=== PATIENT | female | born 1945 | race Caucasian/White ===

== ENCOUNTER → 2017-12-07 09:41 | Outpatient (CLI) | payer MEDICARE, SELFPAY ==
[2017-12-07 10:47] LABS: Cholesterol 199 mg/dL (200); High Density Lipoprotein 50 mg/dL; Triglycerides 136 mg/dL; Very Low Density Lipoprotein 27 mg/dL (5-40)
[2017-12-07 10:53] LABS: Hemoglobin A1c 6.6 % (4.2-6.3)
== END ==
PROVIDERS: Family Provider Internal Medicine; PCP Internal Medicine; Visit Provider Nurse Practitioner Family
DX: E11.9 Type 2 diabetes mellitus without complications (principal); E78.00 Pure hypercholesterolemia, unspecified
CPT/HCPCS: 36415; 80061; 83036

== ENCOUNTER → 2018-06-04 07:35 | Outpatient (CLI) | payer MEDICARE, SELFPAY ==
[2018-06-04 08:59] LABS: Absolute Lymphocyte Count 2.07 X10^3/ul (0.83-4.51); Absolute Neutrophil Count 4.6 X10^3/uL (2.0-7.7); Basophil# 0.02 X10^3/uL; Basophil% 0.3 % (0-1); Eosinophil# 0.26 X10^3/uL; Eosinophils% 3.3 % (0-5); Hematocrit 45.4 % (37-47); Hemoglobin 14.8 g/dl (12.0-15.0); Lymphocyte # 2.07 X10^3/ul (4.0); Lymphocyte % 26.2 % (19-41); Mean Corp Hgb Conc 32.6 g/gl (32-36); Mean Corpuscular Volume 92.1 fL (81-99); Mean Platelet Vol. 10.6 fl (6.2-12.0); Monocyte# 0.96 X10^3/uL; Monocyte% 12.2 % (0-10); Neutrophil # 4.58 X10^3/uL (2.7-7.7); Neutrophil % 57.9 % (47-70); Platelet Count 272 K/mm3 (150-450); RBC Distribution Width SD 43.2 fl (35.1-43.9); Red Blood Count 4.93 M/mm3 (4.2-5.4); White Blood Count 7.9 K/mm3 (4.4-11.0)
[2018-06-04 09:01] LABS: POSITIVE COUNT NO; POSITIVE DIFFERENTIAL NO; POSITIVE MORPHOLOGY NO
[2018-06-04 09:24] LABS: Hemoglobin A1c 6.1 % (4.2-6.3)
[2018-06-04 09:27] LABS: AST(SGOT) 21 U/L (15-37); Alanine Aminotransfer ALT/SGPT 28 U/L (13-56); Albumin, Serum 3.4 g/dL (3.2-5.0); Alkaline Phosphatase 72 U/L (45-117); Anion Gap 8 (5-15); BUN 22 mg/dL (7-18); BUN/Creat Ratio 32.1 RATIO (10-20); Calcium,Total 8.6 mg/dL (8.5-10.1); Chloride 105 mmol/L (98-107); Creatinine, Serum 0.68 mg/dL (0.55-1.02); EST Glomerular Filtration Rate 89 mL/min (>60); Est Glom Filt Rate - Afr Amer 108 mL/min (>60); Globulin 3.4 g/dL (2.2-4.2); Glucose 122 mg/dL (74-106); Potassium 4.1 mmol/L (3.5-5.1); Protein, Total 6.8 g/dL (6.4-8.2); Sodium Level 141 mmol/L (136-145)
== END ==
PROVIDERS: Family Provider Internal Medicine; PCP Internal Medicine; Referring Provider Internal Medicine; Visit Provider Internal Medicine
DX: E11.9 Type 2 diabetes mellitus without complications (principal); I10 Essential (primary) hypertension
CPT/HCPCS: 36415; 80053; 83036; 85025

== ENCOUNTER → 2018-06-20 12:40 | Outpatient (CLI) | payer MEDICARE, SELFPAY ==
--- NOTE | 2018-06-20 12:43 | BI_ITS ---
MAMMOGRAPHY - BILATERAL SCREENING REASON FOR EXAM: Female, 73 years old. Routine annual screening examination. PERTINENT HISTORY: Non-contributory. TECHNIQUE: Digital bilateral breast altagracia (3D mammographic acquisition) in the CC and MLO projections. 2-D mediolateral oblique (MLO) and craniocaudad (CC) views of both breasts were obtained. CAD: Full Field Digital Mammography with Computer Added Detection was performed. COMPARISON: Comparison is made with prior examination dated November 28, 2015. FINDINGS: Breast Composition: There are scattered areas of fibroglandular density. There are no dominant masses or suspicious calcifications. Stable small bilateral axillary lymph nodes. No other significant abnormalities are identified. There has been no significant change since the prior study. BI/SCREENING MAMM (CAD), BILAT IMPRESSION: Stable bilateral screening mammogram. Yearly follow-up mammogram recommended. (A) ASSESSMENT CATEGORY: BIRADS Category 2: Benign. A letter regarding these results will be sent to the patient by the facility within 30 days. Approximately 10% of breast cancers are not detected by mammography. A normal mammogram should not delay biopsy of a clinically suspicious abnormality. [id number] Electronically Signed: Ernesto Segal MD at 14:55 EDT Tel [phone], Service support ,
== END ==
PROVIDERS: Family Provider Internal Medicine; PCP Internal Medicine; Referring Provider Internal Medicine; Visit Provider Internal Medicine
DX: Z12.31 Encounter for screening mammogram for malignant neoplasm of breast (principal)
CPT/HCPCS: 77063; 77067

== ENCOUNTER → 2018-10-29 11:50 | Outpatient (CLI) | payer MEDICARE, SELFPAY ==
[2018-08-05 15:14] VITALS: BMI 31.2
[2018-10-29 12:30] LABS: Hemoglobin A1c 6.3 % (4.2-6.3)
[2018-10-29 12:48] LABS: Cholesterol 213 mg/dL (200); High Density Lipoprotein 53 mg/dL; Triglycerides 163 mg/dL; Very Low Density Lipoprotein 33 mg/dL (5-40)
== END ==
PROVIDERS: Family Provider Internal Medicine; PCP Internal Medicine; Referring Provider Internal Medicine; Visit Provider Internal Medicine
DX: E78.00 Pure hypercholesterolemia, unspecified (principal); E11.9 Type 2 diabetes mellitus without complications
CPT/HCPCS: 36415; 80061; 83036

== ENCOUNTER → 2018-11-28 11:12 | Outpatient (CLI) | payer MEDICARE, SELFPAY ==
[2018-11-03 10:29] VITALS: BMI 31.2
[2018-11-28 12:13] LABS: Anion Gap 5 (5-15); BUN 16 mg/dL (7-18); Calcium,Total 8.8 mg/dL (8.5-10.1); Chloride 107 mmol/L (98-107); EST Glomerular Filtration Rate 87 mL/min (>60); Est Glom Filt Rate - Afr Amer 106 mL/min (>60); Glucose 109 mg/dL (74-106); Sodium Level 141 mmol/L (136-145)
== END ==
PROVIDERS: Family Provider Internal Medicine; PCP Internal Medicine; Referring Provider Internal Medicine; Visit Provider Internal Medicine
DX: I10 Essential (primary) hypertension (principal)
CPT/HCPCS: 36415; 80048

== ENCOUNTER → 2019-03-02 11:07 | Outpatient (CLI) | payer MEDICARE, SELFPAY ==
[2019-03-02 10:34] VITALS: BMI 31.2
[2019-03-02 12:40] LABS: Anion Gap 7 (5-15); BUN 16 mg/dL (7-18); BUN/Creat Ratio 23.9 RATIO (10-20); Calcium,Total 8.4 mg/dL (8.5-10.1); Chloride 108 mmol/L (98-107); Creatinine, Serum 0.67 mg/dL (0.55-1.02); EST Glomerular Filtration Rate 91 mL/min (>60); Est Glom Filt Rate - Afr Amer 111 mL/min (>60); Glucose 112 mg/dL (74-106); Potassium 4.4 mmol/L (3.5-5.1); Sodium Level 142 mmol/L (136-145)
== END ==
PROVIDERS: Family Provider Internal Medicine; PCP Internal Medicine; Visit Provider Internal Medicine
DX: I10 Essential (primary) hypertension (principal)
CPT/HCPCS: 36415; 80048

== ENCOUNTER → 2019-08-28 13:29 | Outpatient (CLI) | payer MEDICARE, OTHER, SELFPAY ==
[2019-06-08 10:57] VITALS: BMI 31.2
--- NOTE | 2019-08-28 13:35 | EKG12_ITS ---
Test Reason : HTN Blood Pressure : / mmHG Vent. Rate : 072 BPM Atrial Rate : 072 BPM P-R Int : 206 ms QRS Dur : 090 ms QT Int : 394 ms P-R-T Axes : 057 044 060 degrees QTc Int : 431 ms Normal sinus rhythm Low voltage QRS Confirmed by RICK LANCE, DAWSON ([id number]), metropolitan editor AMANDA NARVAEZ ([id number]) on 08/31/2019 10:31:04 AM Referred By: Juan F Ann Confirmed By:DAWSON CABRERA MD
== END ==
PROVIDERS: Family Provider Internal Medicine; PCP Internal Medicine; Referring Provider Internal Medicine; Visit Provider Internal Medicine
DX: I10 Essential (primary) hypertension (principal)
CPT/HCPCS: 93005

== ENCOUNTER → 2019-09-07 11:09 | Outpatient (CLI) | payer MEDICARE, OTHER, SELFPAY ==
[2019-09-07 10:40] VITALS: BMI 31.8
[2019-09-07 12:51] LABS: AST(SGOT) 22 U/L (15-37); Alanine Aminotransfer ALT/SGPT 39 U/L (13-56); Albumin, Serum 3.6 g/dL (3.2-5.0); Alkaline Phosphatase 70 U/L (45-117); Anion Gap 3 (5-15); BUN 18 mg/dL (7-18); BUN/Creat Ratio 23.5 RATIO (10-20); Calcium,Total 9.3 mg/dL (8.5-10.1); Chloride 103 mmol/L (98-107); Cholesterol 220 mg/dL (200); Creatinine, Serum 0.77 mg/dL (0.55-1.02); EST Glomerular Filtration Rate 78 mL/min (>60); Est Glom Filt Rate - Afr Amer 94 mL/min (>60); Globulin 3.6 g/dL (2.2-4.2); Glucose 102 mg/dL (74-106); High Density Lipoprotein 51 mg/dL; Potassium 4.5 mmol/L (3.5-5.1); Protein, Total 7.2 g/dL (6.4-8.2); Sodium Level 137 mmol/L (136-145); Triglycerides 217 mg/dL; Very Low Density Lipoprotein 43 mg/dL (5-40)
== END ==
PROVIDERS: PCP Internal Medicine; Visit Provider Internal Medicine
DX: E78.00 Pure hypercholesterolemia, unspecified (principal); I10 Essential (primary) hypertension
CPT/HCPCS: 36415; 80053; 80061

== ENCOUNTER → 2020-02-02 13:51 | Outpatient (CLI) | payer MEDICARE, SELFPAY ==
[2020-02-02 13:30] VITALS: BMI 31.2
[2020-02-02 15:13] LABS: Anion Gap 4 (5-15); BUN 18 mg/dL (7-18); BUN/Creat Ratio 26.6 RATIO (10-20); Calcium,Total 9.2 mg/dL (8.5-10.1); Chloride 106 mmol/L (98-107); Creatinine, Serum 0.68 mg/dL (0.55-1.02); EST Glomerular Filtration Rate 90 mL/min (>60); Est Glom Filt Rate - Afr Amer 109 mL/min (>60); Glucose 119 mg/dL (74-106); Potassium 4.1 mmol/L (3.5-5.1); Sodium Level 140 mmol/L (136-145)
[2020-02-02 15:17] LABS: Hemoglobin A1c 6.5 % (3.8-5.6)
== END ==
PROVIDERS: PCP Internal Medicine; Referring Provider Internal Medicine; Visit Provider Internal Medicine
DX: E11.9 Type 2 diabetes mellitus without complications (principal); I10 Essential (primary) hypertension
CPT/HCPCS: 36415; 80048; 83036

== ENCOUNTER → 2020-09-14 14:08 | Outpatient (CLI) | payer MEDICARE, SELFPAY ==
[2020-09-14 13:37] VITALS: BMI 32.3
[2020-09-14 15:05] LABS: Absolute Lymphocyte Count 2.45 X10^3/uL (0.83-4.51); Absolute Neutrophil Count 4.9 X10^3/uL (2.0-7.7); Basophil# 0.04 X10^3/uL; Basophil% 0.5 % (0-1); Eosinophil# 0.26 X10^3/uL; Hematocrit 45.2 % (37-47); Hemoglobin 15.1 g/dL (12.0-15.0); Lymphocyte # 2.45 X10^3/ul (4.0); Lymphocyte % 27.9 % (19-41); Mean Corp Hgb Conc 33.4 g/dL (32-36); Mean Corpuscular Hgb 30.6 pg (27.0-32.0); Mean Corpuscular Volume 91.5 fL (81-99); Mean Platelet Vol. 10.7 fl (6.2-12.0); Monocyte% 12.5 % (0-10); NRBC Flagged by Analyzer 0 % (0-5); Neutrophil % 55.8 % (47-70); Platelet Count 276 K/mm3 (150-450); RBC Distribution Width CV 12.2 % (11.6-14.6); RBC Distribution Width SD 40.8 fl (35.1-43.9); Red Blood Count 4.94 M/mm3 (4.2-5.4); White Blood Count 8.8 K/mm3 (4.4-11.0)
[2020-09-14 15:20] LABS: AST(SGOT) 21 U/L (15-37); Alanine Aminotransfer ALT/SGPT 37 U/L (13-56); Albumin, Serum 3.6 g/dL (3.2-5.0); Alkaline Phosphatase 74 U/L (45-117); Anion Gap 4 (5-15); BUN 23 mg/dL (7-18); BUN/Creat Ratio 29.2 RATIO (10-20); Calcium,Total 9.3 mg/dL (8.5-10.1); Chloride 105 mmol/L (98-107); Cholesterol 214 mg/dL (200); Creatinine, Serum 0.79 mg/dL (0.55-1.02); EST Glomerular Filtration Rate 75 mL/min (>60); Est Glom Filt Rate - Afr Amer 91 mL/min (>60); Globulin 3.6 g/dL (2.2-4.2); Glucose 128 mg/dL (74-106); High Density Lipoprotein 48 mg/dL; Potassium 3.9 mmol/L (3.5-5.1); Protein, Total 7.2 g/dL (6.4-8.2); Sodium Level 138 mmol/L (136-145); Triglycerides 209 mg/dL; Very Low Density Lipoprotein 42 mg/dL (5-40)
[2020-09-15 14:40] LABS: Hemoglobin A1c 7.4 % (3.8-5.6)
== END ==
PROVIDERS: PCP Internal Medicine; Referring Provider Internal Medicine; Visit Provider Internal Medicine
DX: I10 Essential (primary) hypertension (principal); E11.9 Type 2 diabetes mellitus without complications
CPT/HCPCS: 36415; 80053; 80061; 83036; 85025

== ENCOUNTER → 2020-09-15 10:54 | Outpatient (CLI) | payer MEDICARE, SELFPAY ==
[2020-09-14 13:37] VITALS: BMI 32.3
[2020-09-15 12:57] LABS: Microalbumin,Random Urine 17.5 mg/L (NO RANGE EST.); Microalbumin:Creatinine Ratio 7.3 mg/g CRE (<30 mg/g CRE)
== END ==
PROVIDERS: PCP Internal Medicine; Referring Provider Internal Medicine; Visit Provider Internal Medicine
DX: E11.9 Type 2 diabetes mellitus without complications (principal); I10 Essential (primary) hypertension
CPT/HCPCS: 82043; 82570

== ENCOUNTER → 2020-12-14 14:10 | Outpatient (CLI) | payer MEDICARE, SELFPAY ==
[2020-12-14 13:48] VITALS: BMI 32.3
[2020-12-14 15:17] LABS: Absolute Lymphocyte Count 2.56 X10^3/uL (0.83-4.51); Absolute Neutrophil Count 5.1 X10^3/uL (2.0-7.7); Basophil# 0.03 X10^3/uL; Basophil% 0.3 % (0-1); Eosinophil# 0.31 X10^3/uL; Eosinophils% 3.4 % (0-5); Hematocrit 43.3 % (37-47); Hemoglobin 13.7 g/dL (12.0-15.0); Lymphocyte # 2.56 X10^3/ul (0.83-4.51); Lymphocyte % 28.2 % (19-41); Mean Corp Hgb Conc 31.6 g/dL (32-36); Mean Corpuscular Hgb 29.5 pg (27.0-32.0); Mean Corpuscular Volume 93.1 fL (81-99); Monocyte# 1.05 X10^3/uL; Monocyte% 11.6 % (0-10); NRBC Flagged by Analyzer 0 % (0-5); Neutrophil % 56.2 % (47-70); Platelet Count 295 K/mm3 (150-450); RBC Distribution Width CV 12.4 % (11.6-14.6); RBC Distribution Width SD 42.6 fl (35.1-43.9); Red Blood Count 4.65 M/mm3 (4.2-5.4); White Blood Count 9.1 K/mm3 (4.4-11.0)
[2020-12-14 15:34] LABS: BUN 24 mg/dL (7-18); Creatinine, Serum 0.67 mg/dL (0.55-1.02); Glucose 128 mg/dL (74-106)
[2020-12-14 15:35] LABS: Anion Gap 4 (5-15); BUN/Creat Ratio 35.8 RATIO (10-20); Calcium,Total 9.1 mg/dL (8.5-10.1); Chloride 107 mmol/L (98-107); EST Glomerular Filtration Rate 91 mL/min (>60); Est Glom Filt Rate - Afr Amer 110 mL/min (>60); Potassium 3.9 mmol/L (3.5-5.1); Sodium Level 140 mmol/L (136-145)
== END ==
PROVIDERS: PCP Internal Medicine; Referring Provider Internal Medicine; Visit Provider Internal Medicine
DX: I10 Essential (primary) hypertension (principal); E11.9 Type 2 diabetes mellitus without complications
CPT/HCPCS: 36415; 80048; 85025

== ENCOUNTER 2021-09-20 13:27 | Outpatient (CLI) | payer MEDICARE, SELFPAY ==
[2021-09-20 15:28] LABS: Absolute Lymphocyte Count 2.94 X10^3/uL (0.83-4.51); Absolute Neutrophil Count 4.6 X10^3/uL (2.0-7.7); Basophil# 0.03 X10^3/uL; Basophil% 0.3 % (0-1); Eosinophil# 0.29 X10^3/uL; Eosinophils% 3.2 % (0-5); Hematocrit 43.6 % (37-47); Hemoglobin 14.3 g/dL (12.0-15.0); Lymphocyte # 2.94 X10^3/ul (0.83-4.51); Lymphocyte % 32.5 % (19-41); Mean Corp Hgb Conc 32.8 g/dL (32-36); Mean Corpuscular Volume 91.4 fL (81-99); Mean Platelet Vol. 10.7 fl (6.2-12.0); Monocyte# 1.18 X10^3/uL; NRBC Flagged by Analyzer 0 % (0-5); Neutrophil # 4.57 X10^3/uL (2.7-7.7); Neutrophil % 50.6 % (47-70); Platelet Count 304 K/mm3 (150-450); RBC Distribution Width CV 12.4 % (11.6-14.6); RBC Distribution Width SD 40.8 fl (35.1-43.9); Red Blood Count 4.77 M/mm3 (4.2-5.4); White Blood Count 9.1 K/mm3 (4.4-11.0)
[2021-09-20 15:46] LABS: ALB/GLOB Ratio 0.9 RATIO (0.9-2.4); AST(SGOT) 19 U/L (15-37); Alanine Aminotransfer ALT/SGPT 35 U/L (13-56); Albumin, Serum 3.5 g/dL (3.2-5.0); Alkaline Phosphatase 65 U/L (45-117); Anion Gap 4 (5-15); BUN 23 mg/dL (7-18); BUN/Creat Ratio 36.7 RATIO (10-20); Calcium,Total 9.5 mg/dL (8.5-10.1); Chloride 103 mmol/L (98-107); Cholesterol 205 mg/dL (200); Creatinine, Serum 0.63 mg/dL (0.55-1.02); EST Glomerular Filtration Rate 98 mL/min (>60); Est Glom Filt Rate - Afr Amer 118 mL/min (>60); Globulin 3.7 g/dL (2.2-4.2); Glucose 77 mg/dL (74-106); High Density Lipoprotein 55 mg/dL; Potassium 4.5 mmol/L (3.5-5.1); Protein, Total 7.2 g/dL (6.4-8.2); Sodium Level 138 mmol/L (136-145); Triglycerides 163 mg/dL; Very Low Density Lipoprotein 33 mg/dL (5-40)
== END 2021-09-20 23:59 | disposition short-term general hospital (02) ==
LOC: BIMLAB 13:28
PROVIDERS: PCP Internal Medicine; Referring Provider Internal Medicine; Visit Provider Internal Medicine
DX: I10 Essential (primary) hypertension (principal); E11.9 Type 2 diabetes mellitus without complications
CPT/HCPCS: 36415; 80053; 80061; 85025

== ENCOUNTER → 2022-03-21 | Outpatient (CLI) | payer MEDICARE, SELFPAY ==
[2022-03-21 17:02] LABS: Anion Gap 5 (5-15); BUN 24 mg/dL (7-18); BUN/Creat Ratio 33.2 RATIO (10-20); Calcium,Total 8.9 mg/dL (8.5-10.1); Chloride 108 mmol/L (98-107); Creatinine, Serum 0.72 mg/dL (0.55-1.02); EST Glomerular Filtration Rate 83 mL/min (>60); Est Glom Filt Rate - Afr Amer 100 mL/min (>60); Glucose 120 mg/dL (74-106); Potassium 4.1 mmol/L (3.5-5.1); Sodium Level 142 mmol/L (136-145)
== END | disposition home or self-care (01) ==
LOC: BIMLAB 15:10
PROVIDERS: PCP Internal Medicine; Visit Provider Internal Medicine
DX: I10 Essential (primary) hypertension (principal)
CPT/HCPCS: 36415; 80048

== ENCOUNTER → 2022-07-21 | Outpatient (CLI) | payer MEDICARE, SELFPAY ==
[2022-07-21 11:22] LABS: Anion Gap 2 (5-15); BUN 19 mg/dL (7-18); Calcium,Total 8.7 mg/dL (8.5-10.1); Chloride 109 mmol/L (98-107); EST Glomerular Filtration Rate 85 mL/min (>60); Est Glom Filt Rate - Afr Amer 103 mL/min (>60); Glucose 108 mg/dL (74-106); Sodium Level 141 mmol/L (136-145)
== END | disposition home or self-care (01) ==
LOC: LAB 09:40
PROVIDERS: PCP Internal Medicine; Visit Provider Internal Medicine
DX: I10 Essential (primary) hypertension (principal)
CPT/HCPCS: 36415; 80048

== ENCOUNTER → 2022-11-29 | Outpatient (CLI) | payer MEDICARE, SELFPAY ==
--- NOTE | 2022-11-29 08:58 | BD_ITS ---
STUDY: DUAL ENERGY X-RAY ABSORPTIOMETRY / DXA REASON FOR EXAM: Female, 77 years old. Z78.0 TECHNIQUE: Bone Mineral Density (BMD) measurements of lumbar spine and bilateral hips were obtained. COMPARISON: Comparison is made with prior study dated March 19, 2017. FINDINGS: Lumbar Spine (L1-L4): g/cm2 (1.042) / T-score (0.6) / Z-score (3.0) Findings are suggestive of normal bone density with a low fracture risk. Left Femur Total: g/cm2 (1.065) / T-score (1.0) / Z-score (3.0) Left Femoral Neck: g/cm2 (0.888) / T-score (0.4) / Z-score (2.6) Right Femur Total: g/cm2 (1.054) / T-score (0.9) / Z-score (2.9) Right Femoral Neck: g/cm2 (0.871) / T-score (0.2) / Z-score (2.4) The T-Scores on the most recent prior examination were: Lumbar Spine (L1-L4): There has been improvement of bone density since the previous examination. Left Femur Total: which represents a worsening of 0.3%. Right Femur Total: which represents an improvement of 3.7%. BD/Dexa Bone Density Study IMPRESSION: The patient is considered normal as outlined below according to World Khan[employer] Organization (WHO) criteria with a low fracture risk. There has been improvement of bone density since the previous examination. Reference Information: The T-score is the number of standard deviations above or below the standard which is normal for young adults at their peak bone mineral density. The World Health Organization (WHO) interprets the T-scores as follows: Above -1 Normal bone density Between -1 and -2.5 Osteopenia Equal to / or below -2.5 Osteoporosis As a practical clinical guideline, osteopenia may be graded as follows: Mild -1 through -1.5 Moderate -1.6 through -2.0 Severe -2.1 through -2.4 The Z-score is the number of standard deviations above or below age-matched controls. A Z-score of less than -1.5 would be considered abnormal. References: 1. NIH Osteoporosis and Related Bone Diseases www osteo.org 2. International Society for Clinical Densitometry www iscd.org 3. National Osteoporosis Foundation www nof.org Electronically Signed: Ernesto Segal MD at 15:26 EDT ,
== END | disposition home or self-care (01) ==
LOC: OPBD 08:48
PROVIDERS: PCP Internal Medicine; Referring Provider Internal Medicine; Visit Provider Internal Medicine
DX: Z78.0 Asymptomatic menopausal state (principal)
CPT/HCPCS: 77080

== ENCOUNTER → 2023-01-04 | Outpatient (CLI) | payer MEDICARE, SELFPAY ==
--- NOTE | 2023-01-04 08:07 | MRI_ITS ---
INDICATION: VISUAL DISTURBANCES, HYPERTENSION EXAMINATION: MRI - MR Brain WO/W Contrast TECHNIQUE: MRI examination brain and orbits obtained with standard protocol including multiplanar multiecho pre and postcontrast imaging. IV Contrast Dosage and Agent: 15 mL clariscan IV COMPARISON: None. FINDINGS: HEMISPHERES, CEREBELLUM AND BRAINSTEM: 1. The cerebral parenchyma, ventricular system, subarachnoid spaces have normal configuration and density. There is a normal gyral pattern. There is normal idckinson/white differentiation. No midline shift.. 2. There are mild involutional changes and chronic microvascular deep white matter changes. No areas fluid restriction or acute ischemic change. 3. There is a abnormal area of contrast enhancement within the RIGHT mid thalamus (series 12: Image 13 measuring approximately 3.6 mm in maximal dimension. No surrounding vasogenic edema or mass effect. 4. Additional area of contrast enhancement noted within the RIGHT occipital lobe, measuring approximately 11.8 x 8.3 mm (series 12: Image 6). No surrounding vasogenic edema or mass effect. 5. No other areas of abnormal intraparenchymal contrast enhancement. No evidence of hemosiderin deposition. 6. No hemorrhage , or acute territorial infarct. 7. The cerebellum, brainstem, basilar and suprasellar cisterns have normal appearance. No Chiari malformation. PITUITARY: Partial empty sella is noted. No sellar or suprasellar masses.. CSF SPACES: Appropriate for age. No hydrocephalus. Basal cisterns are patent. VESSELS: 1. There are normal flow voids noted in the great vessels at the skull base ORBITS AND PARANASAL SINUSES: 1. Both globes, extraocular muscles, optic nerves and retrobulbar fat appear unremarkable. 2. Mild chronic ethmoid and maxillary mucosal thickening without air-fluid levels. There is moderate RIGHT mastoid air cell disease. BONY ELEMENTS: Bony elements of the cranial vault, facial skeleton and skull base have normal appearance. SCALP AND SOFT TISSUES: Normal appearance of the soft tissues of the scalp and the visualized face OTHER: None MRI/Brain W/WO Contrast IMPRESSION: 1. 2 focal areas of abnormal contrast enhancement, there is a small area within the RIGHT thalamus, and a more prominent area in the RIGHT occipital lobe measuring 11.8 x 8.3 mm. No significant mass effect or surrounding vasogenic edema. No hemorrhage or fluid restriction. The area of enhancement in the RIGHT occipital lobe appears to communicate with the pial surface at the base of the deep sulcus, and may represent leptomeningeal enhancement. Findings however are of uncertain etiology, and differential considerations include enhancing vascular abnormalities, sequelae of mild vasculitis and leptomeningeal disease. No ezequiel evidence of meningitis however. 2. Consider short-term follow-up in approximately 2-3 months in the absence of no clinical symptoms to assure stability. 3. No other evidence of mass, hemorrhage, or acute territorial infarct. 4. Moderate to extensive RIGHT mastoid air cell disease. Electronically Signed: Ishan Carpio MD at 22:03 EDT ,
[2023-01-04 08:40] LABS: CREATININE FINGERSTICK < 0.9 mg/dL (0.55-1.02); EGFR FINGERSTICK > 60.0000 mL/min (>60)
== END | disposition home or self-care (01) ==
LOC: MRI 08:03
PROVIDERS: PCP Internal Medicine; Referring Provider Ophthalmology; Visit Provider Ophthalmology
DX: H53.10 Unspecified subjective visual disturbances (principal); I10 Essential (primary) hypertension
CPT/HCPCS: 70553; A9575

== ENCOUNTER → 2023-03-04 | Outpatient (CLI) | payer MEDICARE, SELFPAY ==
[2023-03-04 16:42] LABS: Absolute Lymphocyte Count 2.54 X10^3/uL (0.83-4.51); Absolute Neutrophil Count 5.2 X10^3/uL (2.0-7.7); Basophil# 0.03 X10^3/uL; Basophil% 0.3 % (0-1); Eosinophil# 0.29 X10^3/uL; Eosinophils% 3.2 % (0-5); Hemoglobin 14.3 g/dL (12.0-15.0); Lymphocyte # 2.54 X10^3/ul (0.83-4.51); Lymphocyte % 27.9 % (19-41); Mean Corp Hgb Conc 33.3 g/dL (32-36); Mean Corpuscular Volume 93.3 fL (81-99); Mean Platelet Vol. 10.5 fl (6.2-12.0); Monocyte# 0.98 X10^3/uL; Monocyte% 10.8 % (0-10); NRBC Flagged by Analyzer 0 % (0-5); Neutrophil # 5.22 X10^3/uL (2.7-7.7); Neutrophil % 57.5 % (47-70); Platelet Count 305 K/mm3 (150-450); RBC Distribution Width CV 12.6 % (11.6-14.6); RBC Distribution Width SD 43.2 fl (35.1-43.9); Red Blood Count 4.61 M/mm3 (4.2-5.4); White Blood Count 9.1 K/mm3 (4.4-11.0)
[2023-03-04 17:04] LABS: AST(SGOT) 21 U/L (15-37); Alanine Aminotransfer ALT/SGPT 31 U/L (13-56); Albumin, Serum 3.4 g/dL (3.2-5.0); Alkaline Phosphatase 62 U/L (45-117); Anion Gap 4 (5-15); BUN 22 mg/dL (7-18); BUN/Creat Ratio 27.2 RATIO (10-20); Calcium,Total 9.1 mg/dL (8.5-10.1); Chloride 108 mmol/L (98-107); Cholesterol 205 mg/dL (200); Creatinine, Serum 0.81 mg/dL (0.55-1.02); EST Glomerular Filtration Rate 73 mL/min (>60); Est Glom Filt Rate - Afr Amer 88 mL/min (>60); Globulin 3.4 g/dL (2.2-4.2); Glucose 143 mg/dL (74-106); High Density Lipoprotein 55 mg/dL; Potassium 4.7 mmol/L (3.5-5.1); Protein, Total 6.8 g/dL (6.4-8.2); Sodium Level 141 mmol/L (136-145); Triglycerides 178 mg/dL; Very Low Density Lipoprotein 36 mg/dL (5-40)
== END | disposition home or self-care (01) ==
LOC: BIMLAB 14:32
PROVIDERS: PCP Internal Medicine; Referring Provider Internal Medicine; Visit Provider Internal Medicine
DX: I10 Essential (primary) hypertension (principal)
CPT/HCPCS: 36415; 80053; 80061; 85025

== ENCOUNTER → 2023-04-16 | Outpatient (CLI) | payer MEDICARE, SELFPAY ==
--- NOTE | 2023-04-16 11:16 | MRI_ITS ---
INDICATION: FU Abnormal MRI Brain COMPARE TO 01/04/23 EXAMINATION: MRI - MR Brain WO/W Contrast TECHNIQUE: Multiplanar and multisequence MR images of the brain were obtained without and with gadolinium. IV Contrast Dosage and Agent: None. COMPARISON: MR Brain Jan 04 2023 FINDINGS: BRAIN PARENCHYMA: No MRI evidence of hemorrhage. The previously described areas of abnormal contrast enhancement, in the RIGHT thalamus, and in the RIGHT occipital lobe measuring have resolved and are consistent with small infarctions in the right JOINER APPRENTICE territory. No new infarction is seen. No intracranial mass or mass effect. There is preservation of the dickinson/white matter interface. Normal sella turcica, pituitary gland, infundibular stalk, optic chiasm and hypothalamus. Posterior fossa structures are unremarkable. INTERNAL AUDITORY CANALS: The internal auditory canals are well visualized and patent. No mass identified. CSF SPACES: Appropriate for age. No hydrocephalus. Basal cisterns are patent. VASCULAR SYSTEM: Normal flow voids in the major intracranial circulation. CALVARIUM, SKULL BASE, PARANASAL SINUSES AND MASTOID AIR CELLS: Clear. No expansile changes. ORBITS: Both globes, extraocular muscles, optic nerves and retrobulbar fat appear unremarkable. MRI/Brain W/WO Contrast IMPRESSION: The previously described areas of abnormal contrast enhancement, in the RIGHT thalamus, and in the RIGHT occipital lobe measuring have resolved and are consistent with small infarctions in the right JOINER APPRENTICE territory. No new infarction is seen. Electronically Signed: Giovanna Roe MD at 2:51 EDT ,
[2023-04-16 11:42] LABS: CREATININE FINGERSTICK < 0.9 mg/dL (0.55-1.02); EGFR FINGERSTICK > 60.0000 mL/min (>60)
== END | disposition home or self-care (01) ==
LOC: MRI 11:06
PROVIDERS: PCP Internal Medicine; Referring Provider Internal Medicine; Visit Provider Internal Medicine
DX: Z01.812 Encounter for preprocedural laboratory examination (principal); R93.0 Abnormal findings on diagnostic imaging of skull and head, not elsewhere classified
CPT/HCPCS: 70553; A9575

== ENCOUNTER → 2023-05-07 | Outpatient (CLI) | payer MEDICARE, SELFPAY ==
[2023-05-07 08:37] LABS: Erythrocyte Sedimentation Rate 3 mm/hr (0-30)
== END | disposition home or self-care (01) ==
LOC: LAB 08:14
PROVIDERS: PCP Internal Medicine; Referring Provider Psychiatry & Neurology Neurology; Visit Provider Psychiatry & Neurology Neurology
DX: I67.9 Cerebrovascular disease, unspecified (principal)
CPT/HCPCS: 36415; 85652

== ENCOUNTER → 2023-05-08 | Outpatient (CLI) | payer MEDICARE, SELFPAY ==
--- NOTE | 2023-05-08 12:36 | EKG12_ITS ---
Test Reason : CVA ? Blood Pressure : / mmHG Vent. Rate : 064 BPM Atrial Rate : 064 BPM P-R Int : 204 ms QRS Dur : 084 ms QT Int : 408 ms P-R-T Axes : 050 011 045 degrees QTc Int : 420 ms Normal sinus rhythm Low voltage QRS Borderline ECG Confirmed by NELLA LANCE, VENANCIO ([id number]), videotape editor ISH DAVILA ([id number]) on 05/14/2023 10:15:48 AM Referred By: Cooper Echeverria Confirmed By:IRAM CARMEN MD
== END | disposition home or self-care (01) ==
LOC: PSN 12:35
PROVIDERS: PCP Internal Medicine; Referring Provider Psychiatry & Neurology Neurology; Visit Provider Psychiatry & Neurology Neurology
DX: R94.31 Abnormal electrocardiogram [ECG] [EKG] (principal); I67.9 Cerebrovascular disease, unspecified; I10 Essential (primary) hypertension
CPT/HCPCS: 93005

== ENCOUNTER → 2023-06-17 | Outpatient (CLI) | payer MEDICARE, SELFPAY ==
--- NOTE | 2023-06-17 13:24 | ECHOD_ITS ---
Reason For Study: CVA (12/2022) Procedure This was a 2D Doppler, Color Flow transthoracic echocardiogram. Exam performed in department. Left Ventricle Normal LV size. Left ventricular systolic function is normal. The estimated ejection fraction is 65 %. Stage 1 diastolic dysfunction. No regional wall motion abnormalities noted. Right Ventricle Normal RV size. Normal systolic function. Atria Normal left atrium. Normal right atrium. Bubble contrast study negative for right to left interatrial shunt. Mitral Valve Normal mitral valve. Tricuspid Valve Normal tricuspid valve. Mild (1+) tricuspid valve insufficiency. Pulmonary artery systolic pressure is 40 mmHg. Aortic Valve Normal aortic valve. Great Vessels Normal aortic root. The pulmonary artery is normal size. Normal inferior vena cava. Pericardium/Pleural No pericardial effusion. Medication Performed a rapid injection of agitated mix of 9 cc saline and 1cc air to assess for atrial septal defect. MMode/2D Measurements & Calculations LVIDd: 4.4 cm IVSd: 0.82 cm Ao root diam: 3.4 cm LVIDs: 2.5 cm LVPWd: 1.0 cm RVDd: 3.1 cm FS: 43.7 % LAV(MOD-bp): 61.7 ml LVAd ap4: 25.8 cm2 LVAd ap2: 23.9 cm2 LAV(MOD-bp) Indexed: 31.8 ml/m2 LVLd ap4: 7.8 cm LVLd ap2: 7.0 cm LAV(MOD-sp2): 58.4 ml EDV(MOD-sp4): 76.6 ml EDV(MOD-sp2): 74.1 ml LAV(MOD-sp4): 63.3 ml EDV(sp4-el): 72.7 ml EDV(sp2-el): 69.2 ml LVAs ap4: 14.2 cm2 LVAs ap2: 12.9 cm2 LVLs ap4: 6.7 cm LVLs ap2: 5.7 cm ESV(MOD-sp4): 27.7 ml ESV(MOD-sp2): 25.8 ml ESV(sp4-el): 25.6 ml ESV(sp2-el): 24.5 ml EF(MOD-sp4): 63.9 % EF(MOD-sp2): 65.2 % EF(sp4-el): 64.8 % SV(MOD-sp4): 48.9 ml SV(MOD-sp2): 48.3 ml SV(sp4-el): 47.1 ml LA dimension(2D): 4.0 cm LA A4 area: 21.0 cm2 RA A4 area: 14.3 cm2 TAPSE: 2.7 cm Time Measurements MV dec time: 0.15 sec Doppler Measurements & Calculations MV E max eduardo: 60.0 cm/sec Lat Peak E' Eduardo: 7.0 cm/sec Med Peak E' Eduardo: 6.5 cm/sec MV A max eduardo: 67.7 cm/sec E/E' lat: 8.5 E/E' med: 9.3 MV E/A: 0.89 MV V2 max: 84.2 cm/sec MV P1/2t max eduardo: 77.8 cm/sec Ao V2 max: 137.5 cm/sec MV max P.8 mmHg MV P1/2t: 60.5 msec Ao max P.6 mmHg MV V2 mean: 45.7 cm/sec MV dec slope: 376.6 cm/sec2 Ao V2 mean: 95.1 cm/sec MV mean P.95 mmHg Ao mean P.1 mmHg MV V2 VTI: 23.0 cm MVA(P1/2t): 3.6 cm2 Ao V2 VTI: 31.6 cm AV (velocity ratio): 0.62 LV V1 max: 78.7 cm/sec PA V2 max: 75.1 cm/sec TR max eduardo: 301.0 cm/sec LV V1 max P.5 mmHg PA V2 mean: 59.6 cm/sec TR max P.3 mmHg LV V1 mean P.4 mmHg LV V1 mean: 57.4 cm/sec LV V1 VTI: 19.5 cm ECHO/Echo Complete Interpretation Summary Normal LV size. Left ventricular systolic function is normal. The estimated ejection fraction is 65 %. Stage 1 diastolic dysfunction. Pulmonary artery systolic pressure is 40 mmHg. Bubble contrast study negative for right to left interatrial shunt. Ordering Physician: Cooper Echeverria Referring Physician: Juan F Ann Performed By: Fernanda Yepez RDCS, RVT
== END | disposition home or self-care (01) ==
PROVIDERS: PCP Internal Medicine; Referring Provider Psychiatry & Neurology Neurology; Visit Provider Psychiatry & Neurology Neurology
DX: I67.9 Cerebrovascular disease, unspecified (principal); E11.9 Type 2 diabetes mellitus without complications; R94.31 Abnormal electrocardiogram [ECG] [EKG]; I10 Essential (primary) hypertension; E78.5 Hyperlipidemia, unspecified
CPT/HCPCS: 93306; 93880; A4216

== ENCOUNTER → 2023-06-19 | Outpatient (CLI) | payer MEDICARE, SELFPAY ==
--- NOTE | 2023-06-19 14:10 | CT_ITS ---
STUDY: CTA OF THE BRAIN REASON FOR EXAM: Female, 78 years old. 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 Data acquisition was obtained from the skull base through the vertex following intravenous administration of IV 100mL Isovue-370. MIP images were reconstructed from the axial data set. Post-processing of the angiographic images was performed, with multiplanar reformation and 3D reconstruction. Individualized dose optimization techniques were used for this CT. COMPARISON: None. FINDINGS: Normal bilateral petrous carotid arteries. There is calcified plaque formation of the right cavernous carotid artery, without a cross-sectional luminal stenosis. There is calcified plaque formation of the left cavernous carotid artery, without a cross-sectional luminal stenosis. 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 Normal left A1 segments of the anterior cerebral artery. Normal intact anterior communicating artery (ACOM). Normal bilateral A2 segments of the anterior cerebral arteries. Normal right M1 and M2 segments of the middle cerebral arteries, with a normal M1 bifurcation. Normal left M1 and M2 segments of the middle cerebral arteries, with a normal M1 bifurcation. Normal right posterior communicating artery (PCOM). Normal left posterior communicating artery (PCOM). Normal bilateral vertebral arteries. Normal basilar artery with a normal basilar bifurcation. The visualized bilateral superior cerebellar (SCA) arteries are normal. Normal bilateral P1, P2 and visualized P3 segments of the posterior cerebral arteries. There is no demonstrated aneurysm of the [place]. Mild degree of cerebral atrophy. 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 Electronically Signed: Ernesto Segal MD at 14:42 EDT ,
[2023-06-19 14:26] LABS: CREATININE FINGERSTICK < 0.9 mg/dL (0.55-1.02); EGFR FINGERSTICK > 60.0000 mL/min (>60)
== END | disposition home or self-care (01) ==
LOC: CT 13:56
PROVIDERS: PCP Internal Medicine; Referring Provider Psychiatry & Neurology Neurology; Visit Provider Psychiatry & Neurology Neurology
DX: I67.9 Cerebrovascular disease, unspecified (principal)
CPT/HCPCS: 70496; Q9967

== ENCOUNTER → 2023-09-23 | Outpatient (CLI) | payer MEDICARE, SELFPAY ==
--- OUTSIDE RECORDS SUMMARY | 2023-09-23 09:16 | XMS RPT_ITS | CCD ---
Author Name Unknown Address [address] [place] [address] Organization [facility] Care Team Providers Care Stadium Manager Name Role Phone Juan F Ann MD Unavailable [phone] Ron VILLEDA-C, Olivier A Unavailable Unavailable Juan F Ann MD Unavailable [phone] Juan F Ann MD Unavailable [phone] Medications Completed/Discontinued Medications Medication Drug Class(es) Dates Sig (Normalized) Sig (Original) aspirin 81 mg delayed release oral tablet (12 sources) Platelet Aggregation Inhibitor, Nonsteroidal Anti-inflammatory Drug Start: 03-11-2017 ASPIRIN EC 81 [facility] ASPIRIN [id number] Juan F Ann MD Problems Active Problems Problem Classification Problem Date Documented Date Episodic/Chronic Diabetes mellitus without complication (3 sources) Type 2 diabetes mellitus; Translations: [Type 2 diabetes mellitus without complications] Onset: 06-04-2017 06-04-2017 Chronic Essential hypertension (6 sources) Hypertensive disorder; Translations: [Essential (primary) hypertension] 03-11-2017 Chronic Menopausal disorders (6 sources) Menopausal and postmenopausal disorders; Translations: [Unspecified menopausal and perimenopausal disorder] Onset: 03-11-2017 03-11-2017 Chronic Unclassified (5 sources) Screening - health check; Translations: [Encounter for general adult medical examination without abnormal findings] Onset: 03-11-2017 03-11-2017 Past or Other Problems Problem Classification Problem Date Documented Da te Episodic/Chronic Medical examination/evaluation (1 source) Encounter for general adult medical examination without abnormal findings; Translations: [Encounter for general adult medical examination without abnormal findings] Onset: 03-11-2017 03-11-2017 Episodic Other skin disorders (8 sources) Lentigo; Translations: [Senile hyperkeratosis] 02-22-2011 Episodic Other skin disorders (4 sources) Senile hyperkeratosis; Translations: [Other seborrheic keratosis] 02-22-2011 Episodic Other upper respiratory disease (6 sources) Congestion of nasal sinus; Translations: [Nasal congestion] Onset: 03-11-2017 03-11-2017 Episodic Residual codes; unclassified (6 sources) Family history of alcoholism; Translations: [Family history of alcohol abuse and dependence] 03-11-2017 Episodic Results Test Name Value Interpretation Reference Range Facil ity Vital Signs Date Time Vital Sign Value Performing Clinician Facility 06-10-2017 10:01-0400 BMI (Body Mass Index) 31.12 kg/m2 Juan F Ann MD [facility] Work Phone: 06-10-2017 10:01-0400 Body Temperature 97.7 [degF] Juan F Ann MD [facility] Work Phone: 06-10-2017 10:01-0400 BP Diastolic 81 mm[Hg] Juan F Ann MD [facility] Work Phone: 06-10-2017 10:01-0400 BP Systolic 135 mm[Hg] Juan F Ann MD [facility] Work Phone: 06-10-2017 10:01-0400 Height 165.1 cm Juan F Ann MD [facility] Work Phone: 06-10-2017 10:01-0400 Pulse (Heart Rate) 66 /min Juan F Ann MD [facility] Work Phone: 06-10-2017 10:01-0400 Respiratory Rate 12 /min Juan F Ann MD [facility] Work Phone: 06-10-2017 10:01-0400 Weight 84.82 kg Juan F Ann MD [facility] Work Phone: 03-11-2017 09:02-0400 BMI (Body Mass Index) 30.98 kg/m2 Juan F Ann MD [facility] 03-11-2017 09:02-0400 Body Temperature 96.8 [degF] Juan F Ann MD [facility] 03-11-2017 09:02-0400 BP Diastolic 84 mm[Hg] Juan F Ann MD [facility] 03-11-2017 09:02-0400 BP Systolic 132 mm[Hg] Juan F Ann MD [facility] 03-11-2017 09:02-0400 Height 165.1 cm Juan F Ann MD [facility] 03-11-2017 09:02-0400 Pulse (Heart Rate) 68 /min Juan F Ann MD [facility] 03-11-2017 09:02-0400 Weight 84.46 kg Juan F Ann MD [facility] Procedures Date Procedure Procedure Detail Performing Clinician Start: 03-11-2017 End: 06-04-2017 *BMP Juan F Basilio Work Phone: Start: 03-11-2017 End: 06-04-2017 *CBC with Differential Juan F orourke MD Work Phone: Start: 03-11-2017 End: 03-11-2017 Follow Up Appt 3 months Juan F sánchez MD Work Phone: Start: 03-11-2017 End: 06-04-2017 Hemoglobin A1c/Hemoglobin.total in Blood Juan F Ann MD Work Phone: Start: 03-11-2017 End: 06-04-2017 Lipid 1996 panel - Serum or Plasma Juan F Ann MD Work Phone: Start: 03-11-2017 End: 03-11-2017 Follow Up Appt 3 months Juan F sánchez MD Work Phone: Plan of Treatment Date Care Activity Detail Author Start: 09-11-2017 End: 09-11-2017 Appointment Appointment [facility] Work Phone: Start: 09-04-2017 End: 06-04-2017 Hemoglobin A1c/Hemoglobin.total mass fraction (Bld) *HgA1C [facility] Work Phone: Start: 06-10-2017 End: 06-10-2017 Follow Up Appt 3 months Follow Up Appt 3 months [facility] Work Phone: Start: 06-10-2017 End: 06-10-2017 Appointment Appointment [facility] Start: 03-11-2017 End: 03-20-2017 *BMP *BMP [facility] Work Phone: Start: 03-11-2017 End: 03-20-2017 *CBC with Differential *CBC with Differential [facility] Work Phone: Start: 03-11-2017 End: 03-11-2017 DEXA scan DEXA scan [facility] Work Phone: Start: 03-11-2017 End: 03-11-2017 Follow Up Appt 3 months Follow Up Appt 3 months [facility] Work Phone: Start: 03-11-2017 End: 03-20-2017 Hemoglobin A1c/Hemoglobin.total mass fraction (Bld) *HgA1C [facility] Work Phone: Start: 03-11-2017 End: 03-20-2017 Lipid panel [AGGREGATE] *[facility] Work Phone: Start: 03-11-2017 End: 03-11-2017 Appointment Appointment [facility] Start: 03-11-2017 End: 03-11-2017 *BMP *BMP [facility] Start: 03-11-2017 End: 03-11-2017 *CBC with Differential *CBC with Differential [facility] Start: 03-11-2017 End: 03-11-2017 DEXA scan DEXA scan [facility] Start: 03-11-2017 End: 03-11-2017 Follow Up Appt 3 months Follow Up Appt 3 months [facility] Start: 03-11-2017 End: 03-11-2017 HbA1c *HgA1C [facility] Start: 03-11-2017 End: 03-11-2017 Lipid panel [AGGREGATE] *Lipid Profile [facility] Additional Source Comments FOR RECORDS PERTAINING TO PATIENTS WHO ARE OR HAVE BEEN ENROLLED IN A CHEMICAL DEPENDENCY/SUBSTANCEABUSE PROGRAM, SOME INFORMATION MAY BE OMITTED. This clinical summary was aggregated from multiple sources. Caution should be exercised in using it in the provision of clinical care. This summary normalizes information from multiple sources, and as a consequence, information in this document may materially change the coding, format and clinical context of patient data. In addition, data may be omitted in some cases. CLINICAL DECISIONS SHOULD BE BASED ON THE PRIMARY CLINICAL RECORDS. [employer] provides no warranty or guarantee of the accuracy or completeness of information in this document.
[2023-09-23 10:27] LABS: AST(SGOT) 17 U/L (15-37); Alanine Aminotransfer ALT/SGPT 31 U/L (13-56); Albumin, Serum 3.3 g/dL (3.2-5.0); Alkaline Phosphatase 82 U/L (45-117); Bilirubin, Direct 0.14 mg/dL (0.00-0.30); Cholesterol 138 mg/dL (200); Globulin 3.7 g/dL (2.2-4.2); High Density Lipoprotein 56 mg/dL; Triglycerides 119 mg/dL; Very Low Density Lipoprotein 24 mg/dL (5-40)
== END | disposition home or self-care (01) ==
LOC: LAB 08:56
PROVIDERS: PCP Internal Medicine; Referring Provider Psychiatry & Neurology Neurology; Visit Provider Psychiatry & Neurology Neurology
DX: E78.5 Hyperlipidemia, unspecified (principal); I10 Essential (primary) hypertension
CPT/HCPCS: 36415; 80061; 80076

== ENCOUNTER → 2023-10-09 | Outpatient (CLI) | payer MEDICARE, SELFPAY ==
[2023-10-09 17:43] LABS: Anion Gap 4 (5-15); BUN 23 mg/dL (7-18); BUN/Creat Ratio 32.3 RATIO (10-20); Calcium,Total 9.2 mg/dL (8.5-10.1); Chloride 105 mmol/L (98-107); Creatinine, Serum 0.71 mg/dL (0.55-1.02); EST Glomerular Filtration Rate 84 mL/min (>60); Est Glom Filt Rate - Afr Amer 102 mL/min (>60); Glucose 114 mg/dL (74-106); Potassium 4.3 mmol/L (3.5-5.1); Sodium Level 139 mmol/L (136-145)
== END | disposition home or self-care (01) ==
LOC: BIMLAB 15:43
PROVIDERS: PCP Internal Medicine; Visit Provider Internal Medicine
DX: I10 Essential (primary) hypertension (principal); E11.9 Type 2 diabetes mellitus without complications
CPT/HCPCS: 36415; 80048

== ENCOUNTER → 2024-01-15 | Outpatient (CLI) | payer MEDICARE, SELFPAY ==
--- NOTE | 2024-01-15 14:46 | BI_ITS ---
MAMMOGRAPHY - BILATERAL SCREENING REASON FOR EXAM: Female, 78 years old. Routine annual screening examination. PERTINENT HISTORY: Non-contributory. TECHNIQUE: Digital bilateral breast dinora (3D mammographic acquisition) in the CC and MLO projections. 2-D mediolateral oblique (MLO) and craniocaudad (CC) views of both breasts were obtained. CAD: Full Field Digital Mammography with Computer Added Detection was performed. COMPARISON: Comparison is made with prior study dated June 20, 2018. FINDINGS: Breast Composition: There are scattered areas of fibroglandular density. There are no dominant masses or suspicious calcifications. Scattered bilateral secretory calcifications. No other significant abnormalities are identified. There has been no significant change since the prior study. BI/SCRN MAMM (CAD)W/DINORA BILAT IMPRESSION: Stable bilateral screening mammogram. Yearly follow-up mammogram recommended. (A) ASSESSMENT CATEGORY: BIRADS Category 2: Benign. A letter regarding these results will be sent to the patient by the facility within 30 days. Approximately 10% of breast cancers are not detected by mammography. A normal mammogram should not delay biopsy of a clinically suspicious abnormality. [id number] Electronically Signed: Ernesto Segal MD at 15:44 EDT ,
== END | disposition home or self-care (01) ==
LOC: OPBI 14:45
PROVIDERS: PCP Internal Medicine; Referring Provider Internal Medicine; Visit Provider Internal Medicine
DX: Z12.31 Encounter for screening mammogram for malignant neoplasm of breast (principal)
CPT/HCPCS: 77063; 77067

== ENCOUNTER → 2024-02-21 | Outpatient (CLI) | payer MEDICARE, SELFPAY ==
--- NOTE | 2024-02-21 13:57 | US_ITS ---
STUDY: SUPERFICIAL ULTRASOUND - RIGHT SHOULDER REASON FOR EXAM: Female, 78 years old. Right Shoulder Swelling TECHNIQUE: A superficial ultrasound was performed with real-time and static dickinson-scale imaging. COMPARISON: None. FINDINGS: Multiple longitudinal and transverse ultrasound images of the right shoulder confirm a 3.4 cm multiseptated cystic mass with some low level internal echoes. MRI may be useful. US/Ext Non Vasc Limited/Soft Tiss IMPRESSION: Ultrasound confirms a 3.4 cm septated cystic mass and correlation with MRI may be useful. Electronically Signed: Ishan Pinedo MD at 14:58 EDT ,
== END | disposition home or self-care (01) ==
LOC: US 13:51
PROVIDERS: PCP Internal Medicine; Referring Provider Internal Medicine; Visit Provider Internal Medicine
DX: R22.31 Localized swelling, mass and lump, right upper limb (principal)
CPT/HCPCS: 76882

== ENCOUNTER → 2024-03-21 | Outpatient (CLI) | payer MEDICARE, SELFPAY ==
--- NOTE | 2024-03-21 08:58 | MRI_ITS ---
STUDY: MRI RIGHT SHOULDER REASON FOR EXAM: Female, 78 years old. Localized Swelling. Abnormal US study TECHNIQUE: Standardized fat and water weighted pulse sequences were obtained in all 3 orthogonal planes. Exam is performed utilizing mass protocol with suboptimal angulation for evaluation of internal derangement. COMPARISON: Ultrasound February 21, 2024 FINDINGS: There is 1.1 cm full-thickness tear of the anterior distal supraspinatus tendon, series 5 images 11 and 12. Normal infraspinatus tendon. There is tendinosis of the subscapularis tendon. Normal teres minor tendon. Normal supraspinatus muscle. Normal infraspinatus muscle. Normal subscapularis muscle. Normal teres minor muscle. Normal glenohumeral articulation. There is small joint effusion. Normal humeral head and visualized proximal humerus. Normal biceps labral complex. Normal intracapsular long biceps tendon. Normal labrum. Normal capsulo- ligamentous complex. Normal rotator interval. 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 There is 3.7 x 2.9 cm lobular septated fluid collection in the soft tissues anterior and superior to the acromioclavicular joint, series 5 images 3 through 9. There is a Type II morphology (curved) acromion, with a neutral orientation. There is mild subacromial-subdeltoid bursal fluid. Normal visualized coracohumeral and coracoacromial ligaments. Normal quadrilateral space. Normal axillary space. Normal deltoid muscle. Normal trapezius muscle. MRI/Upper Ext Joint Only(Routine) IMPRESSION: Lobular septated cyst in the subcutaneous tissues adjacent to the acromioclavicular joint. Acromioclavicular arthrosis with impingement. Rotator cuff tear of the supraspinatus tendon. Tendinosis of the subscapularis. Electronically Signed: Vinay Aceves MD at 10:38 EDT ,
== END | disposition home or self-care (01) ==
LOC: MRI 08:50
PROVIDERS: PCP Internal Medicine; Referring Provider Internal Medicine; Visit Provider Internal Medicine
DX: R22.31 Localized swelling, mass and lump, right upper limb (principal)
CPT/HCPCS: 73221

== ENCOUNTER → 2024-04-09 | Outpatient (CLI) | payer MEDICARE, SELFPAY ==
[2024-04-09 15:07] LABS: Absolute Lymphocyte Count 1.99 X10^3/uL (0.83-4.51); Absolute Neutrophil Count 4.3 X10^3/uL (2.0-7.7); Basophil# 0.03 X10^3/uL; Basophil% 0.4 % (0-1); Eosinophil# 0.31 X10^3/uL; Eosinophils% 4.2 % (0-5); Hematocrit 42.9 % (37-47); Hemoglobin 13.8 g/dL (12.0-15.0); Lymphocyte # 1.99 X10^3/ul (0.83-4.51); Lymphocyte % 26.7 % (19-41); Mean Corp Hgb Conc 32.2 g/dL (32-36); Mean Corpuscular Hgb 29.9 pg (27.0-32.0); Mean Corpuscular Volume 93.1 fL (81-99); Mean Platelet Vol. 10.9 fl (6.2-12.0); Monocyte# 0.79 X10^3/uL; Monocyte% 10.6 % (0-10); NRBC Flagged by Analyzer 0 % (0-5); Neutrophil # 4.29 X10^3/uL (2.7-7.7); Neutrophil % 57.7 % (47-70); Platelet Count 312 K/mm3 (150-450); RBC Distribution Width CV 12.6 % (11.6-14.6); RBC Distribution Width SD 42.9 fl (35.1-43.9); Red Blood Count 4.61 M/mm3 (4.2-5.4); White Blood Count 7.4 K/mm3 (4.4-11.0)
[2024-04-09 15:27] LABS: Anion Gap 6 (5-15); BUN 23 mg/dL (7-18); BUN/Creat Ratio 27.8 RATIO (10-20); Calcium,Total 9.2 mg/dL (8.5-10.1); Chloride 104 mmol/L (98-107); Creatinine, Serum 0.83 mg/dL (0.55-1.02); EST Glomerular Filtration Rate 71 mL/min (>60); Est Glom Filt Rate - Afr Amer 86 mL/min (>60); Glucose 198 mg/dL (74-106); Magnesium 1.8 mg/dL (1.6-2.6); Potassium 4.3 mmol/L (3.5-5.1); Sodium Level 139 mmol/L (136-145)
== END | disposition home or self-care (01) ==
LOC: BIMLAB 13:46
PROVIDERS: PCP Internal Medicine; Referring Provider Internal Medicine; Visit Provider Internal Medicine
DX: I10 Essential (primary) hypertension (principal); E11.9 Type 2 diabetes mellitus without complications
CPT/HCPCS: 36415; 80048; 83735; 85025

== ENCOUNTER → 2024-04-13 | Outpatient (CLI) | payer MEDICARE, SELFPAY ==
[2024-04-13 16:25] LABS: Microalbumin:Creatinine Ratio 5.4 mg/g CRE (<30 mg/g CRE)
== END | disposition home or self-care (01) ==
LOC: LABSPEC 13:43
PROVIDERS: PCP Internal Medicine; Referring Provider Internal Medicine; Visit Provider Internal Medicine
DX: E11.69 Type 2 diabetes mellitus with other specified complication (principal)
CPT/HCPCS: 82043; 82570

== ENCOUNTER → 2024-09-17 | Outpatient (CLI) | payer MEDICARE, SELFPAY ==
--- NOTE | 2024-09-17 13:54 | CDU_ITS ---
Reason For Study: Visual Scintillations Rt. Velocities/BP Lt. Velocities/BP Prox CCA 71.1/11.6 cm/sec. Prox CCA 88.8/20.0 cm/sec. Mid CCA 54.1/10.7 cm/sec. Mid CCA 70.4/17.6 cm/sec. Dist CCA 49.4/9.7 cm/sec. Dist CCA 58.1/16.3 cm/sec. Prox ICA 42.9/8.0 cm/sec. Prox ICA 57.9/20.1 cm/sec. Mid ICA 84.4/27.7 cm/sec. Mid ICA 68.3/21.1 cm/sec. Dist ICA 64.3/15.6 cm/sec. Dist ICA 85.0/27.8 cm/sec. Rt. ICA/CCA = 1.6. Lt. ICA/CCA = 1.2. Prox ECA 70.2/6.9 cm/sec. Prox ECA 60.5/7.7 cm/sec. Rt. Vert. 60.5/7.7 cm/sec. Lt. Vert. 58.1/10.1 cm/sec. Right Extracranial There is intimal thickening but no significant atherosclerotic plaque noted in the right common carotid artery. There is intimal thickening but no significant atherosclerotic plaque noted in the right internal carotid artery. There is intimal thickening but no significant atherosclerotic plaque noted in the right external carotid artery. Antegrade flow is noted in the right vertebral artery. Left Extracranial There is intimal thickening but no significant atherosclerotic plaque noted in the left common carotid artery. There is intimal thickening but no significant atherosclerotic plaque noted in the left internal carotid artery. There is intimal thickening but no significant atherosclerotic plaque noted in the left external carotid artery. Antegrade flow is noted in the left vertebral artery. Procedure Carotid Duplex [id number]. This is a Carotid Duplex examination using B-mode, color flow and specral Doppler. Exam performed in department. VL/Carotid Duplex Ultrasound Interpretation Summary Normal right extracranial internal carotid. Normal left extracranial internal carotid. Patent and antegrade vertebrals bilaterally. Ordering Physician: Cooper Echeverria Referring Physician: Juan F Ann Performed By: Kip Redd RVT and Student
--- NOTE | 2024-09-17 13:54 | VDLE_ITS ---
Reason For Study: Hx LE DVT RIGHT LEFT GSV is normal. CFV is compressible, spontaneous, phasic, CFV is compressible, spontaneous, phasic, competent, and demonstrates normal competent and demonstrates normal augmentation. augmentation. FV is compressible, spontaneous, phasic, competent and demonstrates normal augmentation. POP V is compressible, spontaneous, phasic, competent and demonstrates normal augmentation. T/P Trunk is compressible. PTV is compressible. Acute deep vein thrombosis is noted in the Per V. It is dilated and NONCOMPRESSIBLE. Acute deep vein thrombosis is noted in the right soleus vein. Procedure This is a venous duplex using B-mode, color flow and spectral Doppler. Exam performed in department. A preliminary report was called and/or faxed to Cooper Echeverria MD and Monica EUGENE at Dr. Ann's office. VL/Venous Duplex US, Unilateral Interpretation Summary Acute deep vein thrombosis is noted in the right peroneal vein, soleus vein Ordering Physician: Cooper Echeverria Referring Physician: Juan F Ann Performed By: Kip Redd RVT and Student
== END | disposition home or self-care (01) ==
LOC: CVS 13:54
PROVIDERS: PCP Internal Medicine; Referring Provider Psychiatry & Neurology Neurology; Visit Provider Psychiatry & Neurology Neurology
DX: I63.81 Other cerebral infarction due to occlusion or stenosis of small artery (principal); H53.123 Transient visual loss, bilateral; Z86.718 Personal history of other venous thrombosis and embolism; M79.661 Pain in right lower leg
CPT/HCPCS: 93880; 93971

== ENCOUNTER → 2024-09-28 | Outpatient (CLI) | payer MEDICARE, SELFPAY ==
[2024-09-28 11:05] LABS: AST(SGOT) 18 U/L (15-37); Alanine Aminotransfer ALT/SGPT 27 U/L (13-56); Albumin, Serum 3.3 g/dL (3.2-5.0); Alkaline Phosphatase 68 U/L (45-117); Bilirubin, Direct 0.16 mg/dL (0.00-0.30); Cholesterol 136 mg/dL (200); Globulin 3.6 g/dL (2.2-4.2); High Density Lipoprotein 58 mg/dL; Protein, Total 6.9 g/dL (6.4-8.2); Triglycerides 124 mg/dL; Very Low Density Lipoprotein 25 mg/dL (5-40)
== END | disposition home or self-care (01) ==
LOC: LAB 09:54
PROVIDERS: PCP Internal Medicine; Referring Provider Psychiatry & Neurology Neurology; Visit Provider Psychiatry & Neurology Neurology
DX: E78.5 Hyperlipidemia, unspecified (principal)
CPT/HCPCS: 36415; 80061; 80076

== ENCOUNTER → 2024-11-02 | Outpatient (CLI) | payer MEDICARE, SELFPAY ==
[2024-11-02 15:37] LABS: Absolute Lymphocyte Count 2.24 X10^3/uL (0.83-4.51); Basophil# 0.03 X10^3/uL; Basophil% 0.3 % (0-1); Eosinophil# 0.29 X10^3/uL; Eosinophils% 3.4 % (0-5); Hematocrit 43.3 % (37-47); Hemoglobin 13.9 g/dL (12.0-15.0); Lymphocyte # 2.24 X10^3/ul (0.83-4.51); Mean Corp Hgb Conc 32.1 g/dL (32-36); Mean Corpuscular Hgb 29.4 pg (27.0-32.0); Mean Corpuscular Volume 91.7 fL (81-99); Mean Platelet Vol. 10.9 fl (6.2-12.0); Monocyte% 11.6 % (0-10); NRBC Flagged by Analyzer 0 % (0-5); Neutrophil % 58.2 % (47-70); Platelet Count 306 K/mm3 (150-450); RBC Distribution Width SD 43.7 fl (35.1-43.9); Red Blood Count 4.72 M/mm3 (4.2-5.4); White Blood Count 8.6 K/mm3 (4.4-11.0)
[2024-11-02 16:12] LABS: Anion Gap 9 (5-15); BUN 24 mg/dL (4-19); Calcium,Total 9.5 mg/dL (7.6-11.0); Carbon Dioxide 27.1 mmol/L (21.0-32.0); Chloride 104 mmol/L (98-108); Creatinine, Serum 0.72 mg/dL (0.70-1.20); EST Glomerular Filtration Rate 85 (>60); Glucose 97 mg/dL (70-99); Potassium 4.4 mmol/L (3.3-5.1); Sodium Level 140 mmol/L (133-145)
== END | disposition home or self-care (01) ==
LOC: BIMLAB 11:35
PROVIDERS: PCP Internal Medicine; Referring Provider Internal Medicine; Visit Provider Internal Medicine
DX: I10 Essential (primary) hypertension (principal)
CPT/HCPCS: 36415; 80048; 85025

== ENCOUNTER → 2025-02-11 | Outpatient (CLI) | payer MEDICARE, SELFPAY ==
--- NOTE | 2025-02-11 11:15 | RAD_ITS ---
EXAM: XR Right Hip With Pelvis When Performed, 2 or 3 Views CLINICAL INDICATION: LOWER EXTREMITY ARTHRITIS TECHNIQUE: Two or three views of the right hip with pelvis when performed. COMPARISON: No relevant prior studies available. FINDINGS: BONES/JOINTS: [id number] degenerative changes of the hip joint. No acute fracture. No dislocation. SOFT TISSUES: Unremarkable. RAD/HIP, UNI W/ Pelvis 2-3 Views IMPRESSION: Degenerative changes as above. Reading Location: [id number]
--- NOTE | 2025-02-11 11:15 | RAD_ITS ---
PROCEDURE: BONE LENGTH 02/11/2025 REASON FOR EXAM: LIMB LENGHT DIFFERENCE F, age 79 y/o . TECHNIQUE: BONE LENGTH COMPARISON: None. RAD/Bone Length IMPRESSION: Single AP bilateral lower extremity view obtained. The hips, knees, and ankles are unremarkable in appearance. No significant difference in the femur length, leg length, or total lower extre mity length is seen on either side. No abnormal angulation is seen. No leg length discrepancy is seen. Reading Location: [place] [id number]
== END | disposition home or self-care (01) ==
LOC: RAD 10:58
PROVIDERS: PCP Internal Medicine; Referring Provider Podiatrist; Visit Provider Podiatrist
DX: M21.761 Unequal limb length (acquired), right tibia (principal)
CPT/HCPCS: 73502; 77073

== ENCOUNTER → 2025-03-15 | Outpatient (CLI) | payer MEDICARE, SELFPAY ==
[2025-03-15 13:24] LABS: Anion Gap 10 (5-15); BUN 19 mg/dL (4-19); BUN/Creat Ratio 27.6 RATIO (10-20); Calcium,Total 9.6 mg/dL (7.6-11.0); Carbon Dioxide 26.9 mmol/L (21.0-32.0); Chloride 103 mmol/L (98-108); Glucose 103 mg/dL (70-99); Potassium 4.8 mmol/L (3.3-5.1)
== END | disposition home or self-care (01) ==
LOC: BIMLAB 11:22
PROVIDERS: PCP Internal Medicine; Referring Provider Internal Medicine; Visit Provider Internal Medicine
DX: I10 Essential (primary) hypertension (principal)
CPT/HCPCS: 36415; 80048

== ENCOUNTER → 2025-04-01 | Outpatient (CLI) | payer MEDICARE, SELFPAY ==
--- NOTE | 2025-04-01 07:51 | BD_ITS ---
PROCEDURE: DEXA BONE DENSITY STUDY 04/01/2025 REASON FOR EXAM: POST MENOPAUSAL F, age 79 y/o . Postmenopausal. TECHNIQUE: DEXA BONE DENSITY STUDY COMPARISON: None FINDINGS: BMD and T-SCORES Lumbar spine: 1.051 g/cm2, T-score 0.7 Levels: 3.2 Left femoral neck: 0.846 g/cm2, T-score 0.0 Femoral neck comparison data not recommended for monitoring change. Left total hip: 1.069 g/cm2, T-score 1.0 Right femoral neck: 0.864 g/cm2, T-score 0.1 Femoral neck comparison data not recommended for monitoring change. Right total hip: 1.023 g/cm2, T-score 0.7 The World Health Organization has defined the following categories based on bone density: Normal bone density: T-score equal to or greater than -1.0 Osteopenia: T-score between -1.0 and -2.5 Osteoporosis: T-score equal to or less than -2.5 The patient does meet the pharmacological treatment recommendations for prevention of osteoporosis. BD/Dexa Bone Density Study IMPRESSION: NORMAL T-SCORES. Recommend follow-up as clinically warranted. Reading Location: [place] [id number]
--- NOTE | 2025-04-01 07:51 | BI_ITS ---
EXAM: SCRN MAMM (CAD)W/DINORA BILAT DATE: 04/01/2025 CLINICAL HISTORY: F, Age 79 y/o , BREAST CANCER SCREENING No family history. TECHNIQUE: SCRN MAMM (CAD)W/DINORA BILAT COMPARISON: Prior exam(s) dated January 15, 2024.. FINDINGS: TISSUE DENSITY: There are scattered areas of fibroglandular density. Bilateral Breast Mammographic Findings: No significant masses, calcifications or other abnormalities are identified. Stable scattered bilateral calcification suggestive of secretory calcifications. Stable small benign-appearing mediastinal lymph nodes. No suspicious masses, areas of developing architectural distortion, or suspicious calcifications. There has been no significant interval change. BI/SCRN MAMM (CAD)W/DINORA BILAT IMPRESSION: Stable examination. OVERALL FINAL ASSESSMENT BI-RADS 2: BENIGN RECOMMENDATION: Routine annual follow-up in 1 Year A letter with findings and recommendations will be mailed to the patient. Reading Location: [place] [id number]
--- OUTSIDE RECORDS SUMMARY | 2025-04-01 08:11 | XMS RPT_ITS | CCD ---
Author Organization [facility] Care Team Providers Care Day [employer] Driver Name Role Phone Juan F Ann MD Unavailable [phone] Ron INSTRUMENTATION TECH-C, Olivier Cruz Unavailable Unavailable Juan F Ann MD Unavailable [phone] Juan F Ann MD Unavailable [phone] Dr. Juan F Ann Primary Care Provider [phone] Dr. Juan F Ann Attending Provider [phone] Dr. Juan F Ann Referring Provider [phone] Dr. Juan F Ann Primary Care Provider [phone]) Dr. Juan F Ann Attending Provider [phone] Dr. Juan F Ann Referring Provider [phone] Dr. Juan F Ann Primary Care Provider [phone]) Dr. Juan F Ann Attending Provider [phone] Dr. Juan F Ann Referring Provider [phone] Dr. Juan F Ann Primary Care Provider [phone]) Dr. Juan F Ann Attending Provider [phone] Dr. Juan F Ann Referring Provider [phone] Dr. Cooper Echeverria Attending Provider Dr. Pablo Reeves Attending Provider [phone] Dr. Cooper Echeverria Referring Provider Dr. Jaz Gupta Attending Provider Dr. Jay Arellano Attending Provider Dr. Juan F Ann Primary Care Provider Dr. Jay Arellano Attending Provider Dr. Cooper Echeverria Referring Provider Dr. Juan F Ann Attending Provider [phone] Seth, Dr. Rogel Referring Provider [phone] Dr. Cooper Echeverria Attending Provider Seth LANCE, Dr. Rogel Primary Care Provider Seth LANCE, Dr. Rogel Referring Provider [phone] Juwan LANCE, Dr. Gamboa Attending Provider Juwan LANCE, Dr. Gamboa Referring Provider Gilmer LANCE, Dr. Coles Attending Provider Rick Hoyt Attending Provider Seth LANCE, Dr. Rogel Attending Provider [phone] Seth LANCE, Dr. Rogel Primary Care Provider Seth LANCE, Dr. Rogel Referring Provider [phone] Dr. Efrain Castano MD Attending Provider Lars DPMyra, Dr. Thorpe Attending Provider Lars GREENFIELD, Dr. Thorpe Referring Provider Seth LANCE, Dr. Rogel Primary Care Provider Seth LANCE, Dr. Rogel Referring Provider [phone] Seth LANCE, Dr. Rogel Attending Provider [phone] Juan F Ann Attending Unavailable Juan F Ann Primary Care Unavailable Oleghe, Efewongbe Referring Unavailable Oleghe, Efewongbe Attending Unavailable Oleghe, Efewongbe Primary Care Unavailable Oleghe, Efewongbe Referring Unavailable Oleghe, Efewongbe Attending Unavailable Oleghe, Efewongbe Primary Care Unavailable Oleghe, Efewongbe Referring Unavailable Oleghe, Efewongbe Primary Care Unavailable Oleghe, Efewongbe Referring Unavailable Efrain Castano Attending Unavailable Cooper Echeverria Referring Unavailable Oleghe, Efewongbe Primary Care Unavailable Sanket Scherer Attending Unavailable Oleghe, Efewongbe Attending Unavailable Oleghe, Efewongbe Primary Care Unavailable Oleghe, Efewongbe Referring Unavailable Oleghe, Efewongbe Primary Care Unavailable Oleghe, Efewongbe Referring Unavailable Oleghe, Efewongbe Attending Unavailable Oleghe, Efewongbe Referring Unavailable Cooper Echeverria Attending Unavailable Oleghe, Efewongbe Primary Care Unavailable Oleghe, Efewongbe Attending Unavailable Oleghe, Efewongbe Primary Care Unavailable Oleghe, Efewongbe Referring Unavailable Oleghe, Efewongbe Referring Unavailable Oleghe, Efewongbe Primary Care Unavailable Rick Hoyt Attending Unavailable Oleghe, Efewongbe Attending Unavailable Oleghe, Efewongbe Referring Unavailable Oleghe, Efewongbe Primary Care Unavailable Oleghe, Efewongbe Attending Unavailable Oleghe, Efewongbe Primary Care Unavailable Oleghe, Efewongbe Referring Unavailable Cooper Echeverria Referring Unavailable Cooper Echeverria Attending Unavailable Oleghe, Efewongbe Primary Care Unavailable Cooper Echeverria Referring Unavailable Cooper Echeverria Attending Unavailable Oleghe, Efewongbe Primary Care Unavailable Oleghe, Efewongbe Attending Unavailable Oleghe, Efewongbe Primary Care Unavailable Oleghe, Efewongbe Referring Unavailable Maurilio Sousa Referring Unavailable Maurilio Sousa Attending Unavailable Oleghe, Efewongbe Primary Care Unavailable Medications Current Medications Medication Drug Class(es) Dates Sig (Normalized) Sig (Original) apixaban 2.5 mg oral tablet (12 sources) Factor Xa Inhibitor Start: 03-15-2025 take 1 tablet by mouth twice daily Apixaban 2.5 mg tablet Active 2.5 mg PO TWICE A DAY 180 March 15, 2025 10:56am Start: 09-17-2024 End: 03-15-2025 take 1 tablet by mouth twice daily Apixaban 5 mg tablet Discontinued 5 mg PO TWICE A DAY 180 February 26, 2025 7:56am March 15, 2025 10:57am Start: 09-17-2024 End: 11-02-2024 Apixaban 5 mg (74 tabs) tabl ets,dose pack Discontinued 0 PO per package directions 74 0 September 17, 2024 1:00am November 02, 2024 11:08am PO PER PKG DIR Start: 09-17-2024 End: 11-02-2024 Apixaban 5 mg (74 tabs) tabl ets,dose pack Discontinued 0 PO per package directions 74 September 17, 2024 1:00am November 02, 2024 11:08am PO PER PKG DIR Csdflcfk-Aah-Yuei-Fa-Lutein (Centrum Silver Women) 8 mg iron-400 mcg-300 mcg tablet (4 sources) Start: 09-10-2017 take 1 tablet by mouth once Mcoyqkur-Vnd-Ixuj-Fa-Lutein (Centrum Silver Women) 8 mg iron-400 mcg-300 mcg tablet Active TABLET PO September 10, 2017 12:00am Start: 09-10-2017 take 1 tablet by yon th once Gllrwzvm-Rwl-Zlxg-Fa-Lutein (Centrum Zayda jorge Women) 8 mg iron-400 mcg-300 mcg tablet Active TABLET PO September 10, 2017 1:00am Dhluxcwl-Dpt-Iret-Fa-Vit K-L ut (Centrum Silver Women) 8 mg iron-400 mcg-300 mcg tablet (10 sources) Start: 09-10-2017 Nvvltgcm-Tjn-W aidan-Fa-Vit K-Lut (Centrum Silver Women) 8 mg iron-400 mcg-300 mcg tablet Active {tbl} PO 0 September 10, 2017 1:00am Start: 09-10-2017 Bqzgpwuf-Gkj-F aidan-Fa-Vit K-Lut (Centrum Silver Women) 8 mg iron-400 mcg-300 mcg tablet Active {tbl} PO September 10, 2017 1:00am Start: 09-10-2017 take 1 tablet by yon th once Wsipashs-Utv-Bvfe-Fa-Vit K-Lut (Centrum Silver Women) 8 mg iron-400 mcg-300 mcg tablet Active TABLET PO September 10, 2017 12:00am Start: 09-10-2017 take 1 tablet by yon th once Qvataskl-Hjx-Dvvp-Fa-Vit K-Lut (Centrum Silver Women) 8 mg iron-400 mcg-300 mcg tablet Active TABLET PO September 10, 2017 1:00am jeromeburocky gumjuan pablo (4 sources) Start: 04-09-2024 sambucus gummy Active PO April 09, 2024 12:00am bid Completed/Discontinued Medications Medication Drug Class(es) Dates Sig (Normalized) Sig (Original) aspirin 81 mg delayed release oral tablet (20 sources) Platelet Aggregation Inhibitor, Nonsteroidal Anti-inflammatory Drug Start: 10-09-2023 End: 09-30-2024 Aspirin (Adult Low Dose Aspirin) 81 mg tablet,delayed release (DR/EC) Discontinued 81 mg PO DAILY October 09, 2023 1:00am September 30, 2024 3:06pm Start: 09-10-2017 End: 12-01-2018 take 1 tablet by mouth once Aspirin (Aspirin Childrens ) 81 mg tablet,chewable Discontinued 81 mg PO ONCE September 10, 2017 1:00am December 01, 2018 10:56am Start: 03-11-2017 ASPIRIN EC 81 MG TBEC ASPIRIN [id number] Juan F Ann MD ANACIN 81 MG TBE C ASPIRIN [id number] Ric Elizabeth DO ANACIN 81 MG TBE C ASPIRIN [id number] Ric Elizabeth DO atorvastatin 20 mg oral tablet (20 sources) HMG-CoA Reductase Inhibitor Start: 05-02-2023 End: 08-25-2024 take 1 tablet by mouth once daily Atorvastatin 20 mg tablet Discontinued 20 mg PO DAILY 90 August 25, 2024 3:51pm August 25, 2024 5:53pm calcium carbonate 1500 mg oral tablet (14 sources) Start: 06-08-2019 End: 07-04-2023 take 1 tablet by mouth once daily Calcium Carbonate (Calcium 600) 600 mg calcium (1,500 mg) tablet Discontinued 600 mg PO DAILY June 08, 2019 12:00am July 04, 2023 4:29pm cholecalciferol 0.025 mg oral capsule (16 sources) Vitamin D Start: 09-10-2017 End: 06-15-2020 take 1 capsule by mouth once Cholecalciferol (Vitamin D3) 1,000 unit capsule Discontinued 1000 U PO ONCE September 10, 2017 1:00am June 15, 2020 1:10pm Start: 06-10-2017 take 1 tablet by yon th once daily, then take 3 tablets by mouth VITAMIN D-3 1000 UNIT CAPS One tablet by mouth daily CHOLECALCIFEROL [id number] Juan F Ann MD GLUCOSAMINE-CHONDROITIN CAPS (12 sources) GLUCOSAMINE-ANNA DROITIN CAPS GLUCOSAMINE-CHONDROITIN CAPS [id number] Ric Elizabeth DO End: 03-11-2017 GLUCOSAMINE-CHONDROITIN CAPS GLUCOSAMINE-CHONDROITIN CAPS [id number] Juan F Ann MD GLUCOSAMINE-ANNA DROITIN CAPS GLUCOSAMINE-CHONDROITIN CAPS [id number] Ric Elizabeth DO End: 03-11-2017 GLUCOSAMINE-CHONDROITIN CAPS GLUCOSAMINE-CHONDROITIN CAPS [phone] Juan F Ann MD ciprofloxacin 500 mg oral tablet (10 sources) Quinolone Antimicrobial Start: 03-04-2023 End: 05-02-2023 take 1 tablet by mouth every twelve hours Ciprofloxacin Hcl 500 mg tablet Discontinued 500 mg PO Q12H 10 0 March 04, 2023 12:00am May 02, 2023 9:50am Fish Oils (12 sources) End: 03-11-2017 FISH OIL CAPS OMEGA-3 FATTY ACIDS CAPS [id number] Juan F Ann MD FISH OIL CAPS OM EGA-3 FATTY ACIDS CAPS [id number] Ric Elizabeth DO End: 03-11-2017 FISH OIL CAPS OME GA-3 FATTY ACIDS CAPS [id number] Juan F Ann MD metFORMIN hydrochloride 850 mg oral tablet (20 sources) Biguanide Start: 07-04-2023 End: 02-15-2025 take 1 tablet by mouth twice daily Metformin 850 mg tablet Discontinued 850 mg PO TWICE A DAY 180 90 3 April 23, 2024 9:33am February 15, 2025 8:41am Start: 09-16-2020 End: 07-04-2023 take 1 tablet by mouth twice daily Metformin 500 mg tablet Discontinued 500 mg PO TWICE A DAY 180 3 October 04, 2022 1:06pm July 04, 2023 4:55pm metoprolol tartrate 100 mg oral tablet (20 sources) beta-Adrenergic Rubina Start: 06-14-2021 End: 11-02-2024 Metoprolol Tartrate 100 mg tablet Discontinued 0 .ROUTE TWICE A DAY 180 90 3 January 02, 2024 11:45am November 02, 2024 12:18pm Take 1 BID Start: 12-15-2019 End: 06-14-2021 Metoprolol Tartrate 50 mg ta blet Discontinued 0 .ROUTE .COMPLEX 270 3 December 14, 2020 2:04pm June 14, 2021 2:32pm TAKE 1 AND 1/2 TABLETS TWICE DAILY Start: 11-03-2018 End: 06-14-2021 Metoprolol Tartrate (Lopress or) 50 mg tablet Discontinued 75 mg PO TWICE A DAY 270 90 3 February 25, 2019 2:17pm December 15, 2019 8:43am Start: 09-10-2017 End: 11-03-2018 take 1 tablet by mouth twice daily Metoprolol Tartrate (Lopressor) 50 mg tablet Discontinued 50 mg PO TWICE A DAY 180 1 October 06, 2018 5:19pm November 03, 2018 10:35am Start: 03-11-2017 LOPRESSOR 50 M G TABS 1po twice daily METOPROLOL TARTRATE [id number] Juan F Ann MD End: 03-11-2017 TOPROL XL [id number]-QDA METOPROLOL SUCCINATE [id number]-[id number] [id number] Juan F Ann MD End: 03-11-2017 TOPROL XL [id number]-HCN METOPROLOL SUCCINATE [id number]-ZCO [id number] Juan F Ann MD TOPROL XL XR24H- TAB METOPROLOL SUCCINATE [id number]-XFU [id number] Ric Elizabeth DO End: 03-11-2017 TOPROL XL JF65G-PYI METOPROLOL SUCCINATE [id number] Juan F Ann MD MULTIPLE VITAMINS-MINERALS (1 source) Start: 03-11-2017 take 1 tablet by mouth once daily CENTRUM SILVER 50+WOMEN TABS 1 po daily MULTIPLE VITAMINS-MINERALS [id number] Juan F Ann MD MULTIPLE VITAMINS-MINERALS (5 sources) Start: 03-11-2017 take 1 tablet by mouth once daily CENTRUM SILVER 50+WOMEN TABS 1 po daily MULTIPLE VITAMINS-MINERALS [id number] Juan F Ann MD Start: 03-11-2017 take 1 tablet by yon th once daily CENTRUM SILVER 50+WOMEN TABS 1 po daily MULTIPLE VITAMINS-MINERALS [id number] Juan F Ann MD olmesartan medoxomil 5 mg oral tablet (20 sources) Angiotensin 2 Receptor Rubina Start: 11-03-2018 End: 12-15-2018 take 1 tablet by mouth once daily Olmesartan 5 mg tablet Discontinued 5 mg PO DAILY 180 3 December 01, 2018 11:10am December 15, 2018 8:00am valsartan 80 mg oral tablet (20 sources) Angiotensin 2 Receptor Rubina Start: 06-22-2022 End: 12-03-2024 Valsartan 80 mg tablet Discontinued 80 mg PO THREE TIMES A DAY 270 90 February 10, 2024 12:59pm December 03, 2024 1:06pm Take 2 tabs in the morning and 1 tablet at night. Start: 12-20-2021 End: 06-22-2022 Valsartan 80 mg tablet Disco ntinued 0 .ROUTE .COMPLEX 180 December 20, 2021 1:54pm June 22, 2022 10:35am TAKE 1 TABLET TWICE DAILY Start: 12-15-2018 End: 12-20-2021 Valsartan 40 mg tablet Disco ntinued 0 .ROUTE .COMPLEX 180 May 23, 2021 8:52am December 20, 2021 1:55pm TAKE 1 TABLET TWICE DAILY Problems Active Problems Problem Classification Problem Date Documented Da te Episodic/Chronic Acute cerebrovascular disease (1 source) Other cerebral infarction due to occlusion or stenosis of small artery; Translations: [Other cerebral infarction due to occlusion or stenosis of small artery] Onset: 10-07-2024 Chronic Administrative/social admission (15 sources) Patient encounter status; Translations: [Encounter for health counseling related to travel] 03-04-2023 Episodic Blindness and vision defects (8 sources) Visual impairment; Translations: [Unspecified visual loss] 05-02-2023 Chronic Cardiac dysrhythmias (4 sources) Palpitations; Translations: [Palpitations] 04-09-2024 Episodic Diabetes mellitus with complications (1 source) Type 2 diabetes mellitus with other specified complication; Translations: [Type 2 diabetes mellitus with other specified complication] Onset: 03-15-2025 Chronic Diabetes mellitus without complication (20 sources) Type 2 diabetes mellitus; Translations: [Type 2 diabetes mellitus without complications] Onset: 06-04-2017 06-04-2017 Chronic Disorders of lipid metabolism (20 sources) Hypercholesterolemia; Translations: [Pure hypercholesterolemia, unspecified] Onset: 10-14-2024 Chronic Essential hypertension (20 sources) Hypertensive disorder; Translations: [Essential (primary) hypertension] Onset: 03-23-2025 03-11-2017 Chronic Headache; including migraine (4 sources) Headache; Translations: [Headache] 07-06-2024 Episodic Immunizations and screening for infectious disease (14 sources) Needs influenza immunization; Translations: [Encounter for immunization] 06-09-2021 Episodic Menopausal disorders (6 sources) Menopausal and postmenopausal disorders; Translations: [Unspecified menopausal and perimenopausal disorder] Onset: 03-11-2017 03-11-2017 Chronic Osteoarthritis (2 sources) Osteoarthritis of bilateral hip joints; Translations: [Bilateral primary osteoarthritis of hip] 03-15-2025 Chronic Other acquired deformities (1 source) Unequal limb length (acquired), right tibia; Translations: [Unequal limb length (acquired), right tibia] Onset: 02-16-2025 Episodic Other and ill-defined cerebrovascular disease (8 sources) Cerebrovascular disease; Translations: [Cerebrovascular disease, unspecified] 05-02-2023 Chronic Other and ill-defined cerebrovascular disease (4 sources) Cerebrovascular disease, unspecified; Translations: [Unspecified cerebrovascular disease] 05-02-2023 Chronic Other circulatory disease (5 sources) History of cerebrovascular accident due to ischemia; Translations: [Personal history of transient ischemic attack (TIA), and cerebral infarction without residual deficits] 11-26-2023 Episodic Other connective tissue disease (5 sources) Pain in calf; Translations: [Pain in right lower leg] 08-25-2024 Episodic Other diseases of veins and lymphatics (2 sources) Venous insufficiency of leg; Translations: [Venous insufficiency (chronic) (peripheral)] 03-15-2025 Episodic Other ear and sense organ disorders (14 sources) Impacted cerumen; Translations: [Impacted cerumen, left ear] 03-15-2021 Episodic Other gastrointestinal disorders (8 sources) Swallowing problem; Translations: [Dysphagia, unspecified] 12-14-2020 Episodic Other gastrointestinal disorders (6 sources) Swallowing finding; Translations: [Dysphagia, unspecified] 12-14-2020 Episodic Other screening for suspected conditions (not mental disorders or infectious disease) (20 sources) Magnetic resonance imaging of brain abnormal; Translations: [Other abnormal findings on diagnostic imaging of central nervous system] Onset: 03-24-2025 03-04-2023 Episodic Other skin disorders (4 sources) Disorder of right upper extremity; Translations: [Localized swelling, mass and lump, right upper limb] 01-30-2024 Episodic Other skin disorders (2 sources) Mass of skin; Translations: [Localized swelling, mass and lump, unspecified] 03-15-2025 Episodic Residual codes; unclassified (14 sources) History of vaccination; Translations: [Personal history of other drug therapy] 03-15-2021 Episodic Residual codes; unclassified (12 sources) Postmenopausal state; Translations: [Asymptomatic menopausal state] 10-31-2022 Episodic Residual codes; unclassified (4 sources) Asymptomatic menopausal state; Translations: [Asymptomatic postmenopausal status (age-related) (natural)] Onset: 03-15-2025 10-31-2022 Episodic Unclassified (5 sources) Screening - health check; Translations: [Encounter for general adult medical examination without abnormal findings] Onset: 03-11-2017 03-11-2017 Unclassified (2 sources) I82.409 - Acute embolism and thrombosis of unspecified deep veins of unspecified lower extremity Unclassified (1 source) Recurrent deep vein thrombosis (DVT) Varicose veins of lower extremity (6 sources) Bilateral spider veins of lower limbs; Translations: [Asymptomatic varicose veins of bilateral lower extremities] 12-09-2024 Episodic Comment on above: May increase her ris k of DVT. She does not want to see a Vascular Surgeon Past or Other Problems Problem Classification Problem Date Documented Da te Episodic/Chronic Blindness and vision defects (6 sources) Scintillating scotoma; Translations: [Transient visual loss, bilateral] Onset: 08-25-2024 08-25-2024 Episodic Medical examination/evaluation (1 source) Encounter for general adult medical examination without abnormal findings; Translations: [Encounter for general adult medical examination without abnormal findings] Onset: 03-11-2017 03-11-2017 Episodic Other connective tissue disease (1 source) Pain in right lower leg; Translations: [Pain in right lower leg] Onset: 08-25-2024 Episodic Other skin disorders (8 sources) Lentigo; Translations: [Senile hyperkeratosis] 02-22-2011 Episodic Other skin disorders (4 sources) Senile hyperkeratosis; Translations: [Other seborrheic keratosis] 02-22-2011 Episodic Other upper respiratory disease (6 sources) Congestion of nasal sinus; Translations: [Nasal congestion] Onset: 03-11-2017 03-11-2017 Episodic Phlebitis; thrombophlebitis and thromboembolism (20 sources) Deep venous thrombosis of lower extremity; Translations: [Acute embolism and thrombosis of unspecified deep veins of unspecified lower extremity] Onset: 08-25-2024 08-26-2013 Episodic Comment on above: Discussed Distal DVT and the factor that she can take Eliquis for 45 days, since this is her second clot, she can change to Prophylactic dose of Eliquis-2.5mg bid. She agrees to that. Residual codes; unclassified (6 sources) Family history of alcoholism; Translations: [Family history of alcohol abuse and dependence] 03-11-2017 Episodic Unclassified (14 sources) history of removal of growth on forearm 03-09-2022 Results Test Name Value Interpretation Reference Range Facility Anion gap in Serum or Plasma Ordered By: Juan F Ann on 03-15-2025 Anion gap [Moles/Vol] 10 mmol/L 5-15 [facility] BUN/creatinine ratioOrdered By: Juan F Ann on 03-15-2025 Urea nitrogen/Creatinine [Mass ratio] 27.6 mg/mg High 06-07 [facility] Basic Metabolic Profile (BMP )on 03-15-2025 BUN/CRE 27.6 RATIO High 06-07 [facility] Comment on above: Performed By: #### L 500.2500 #### [facility] [address] [place], [address] Calcium [Mass/Vol] 9.6 mg/dL Normal 7.6-11.0 [facility] Comment on above: Performed By: #### L 500.2500 #### [facility] [address] [place], [address] Chloride [Moles/Vol] 103 mmol/L Normal 98-108 [facility] Comment on above: Performed By: #### L 500.2500 #### [facility] [address] [place], [address] CO2 [Moles/Vol] 26.9 mmol/L Normal 21.0-32.0 [facility] Comment on above: Performed By: #### L 500.2500 #### [facility] [address] [place], [address] Creatinine [Mass/Vol] 0.67 mg/dL Low 0.70-1.20 [facility] Comment on above: Performed By: #### L 500.2500 #### [facility] [address] [place], [address] GAP 10 Normal 5-15 [facility] Comment on above: Performed By: #### L 500.2500 #### [facility] [address] [place], [address] GFR/1.73 sq M.predicted among non-blacks MDRD (S/P/Bld) [Vol rate/Area] 88 mL/min/{1.73_m2} Normal >60 [facility] Comment on above: Result Comment: mL/m in/1.73m2 CKD-EPI Creatinine Equation (2020) Performed By: #### L 500.2500 #### [facility] [address] [place], [address] Glucose [Mass/Vol] 103 mg/dL High 70-99 [facility] Comment on above: Performed By: #### L 500.2500 #### [facility] [address] [place], [address] Potassium [Moles/Vol] 4.8 mmol/L Normal 3.3-5.1 [facility] Comment on above: Performed By: #### L 500.2500 #### [facility] [address] [place], [address] Sodium [Moles/Vol] 140 mmol/L Normal 133-145 [facility] Comment on above: Performed By: #### L 500.2500 #### [facility] [address] [place], [address] Urea nitrogen [Mass/Vol] 19 mg/dL Normal 4-19 [facility] Comment on above: Performed By: #### L 500.2500 #### [facility] [address] [place], [place], [address] Carbon dioxide, total [Moles /volume] in Central venous bloodOrdered By: Juan F Ann on 03-15-2025 CO2 [Moles/Vol] 26.9 mmol/L 21.0-32.0 [facility] Chloride assayOrdered By: Karen Ann on 03-15-2025 Chloride [Moles/Vol] 103 mmol/L 98-108 [facility] Glomerular filtration rate ( GFR) estimation/1.73 sq m using serum, plasma, or whole bOrdered By: Juan F Ann on 03-15-2025 GFR/1.73 sq M.predicted among non-blacks MDRD (S/P/Bld) [Vol rate/Area] 88 mL/min/{1.73_m2} >60 [facility] Comment on above: mL/min/1.73m2 CKD-EP I Creatinine Equation (2020) Internal Medicine Office Vis chay 03-15-2025 Internal Medicine Office Visit [facility] [address] [place], [place] [address] OFFICE VISIT Date of Service: 03/15/25 MR#: [id number] Acct: [id number] Name: KHUSHBOO PORTILLO Rep #: [id number] : 1945 Provider: Dr. 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: No Accompanied by: Self Is patient in pain?: No Allergies No Known Allergies Allergy (Verified 03/15/25 10:41) Medications ???Medication ???Instructions ???Recorded ???Confirmed ???Type wdoqpafa-qfev-ypdh 8 mg-folic 400 tab PO 09/10/17 03/15/25 History mcg-K 50 mcg-lutein 300 mcg tablet (Centrum Silver Women) sambucus gummy PO 04/09/24 03/15/25 History atorvastatin 20 mg tablet 20 mg PO DAILY #90 tabs 08/25/24 0 03/15/25 Rx metoprolol tartrate 100 mg tablet See Rx Instructions .Route BID 3 11/02/24 03/15/25 Rx months #180 tabs valsartan 80 mg tablet 80 mg PO TID 3 months #270 tabs 03/15/25 Rx metformin 850 mg tablet 850 mg PO BID 3 months #180 tabs 0 02/15/25 03/15/25 Rx apixaban 2.5 mg tablet 2.5 mg PO BID #180 tabs 03/15/25 0 03/15/25 Rx Have you fallen in the past year?: No PFSH Medical History (Updated 03/15/25 @ 16:[address] 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 Post-menopausal Hyperlipidemia Flu vaccine need COVID-19 vaccine series completed Impacted cerumen of left ear Swallowing problem Type 2 diabetes mellitus Hypertension Surgical History History of squamous cell carcinoma excision History of carpal tunnel release history of removal of growth on forearm History of tonsillectomy Family History Father Alcoholism Sister Asthma Cancer ovarian Mother Heart disease Hypertension Brother Blood disease Social History Smoking Status: Never smoker alcohol intake: never substance use type: does not use what type of physical activity do you participate in: none HPI HPI Chief Complaint: Follow-up chronic conditions Details: KHUSHBOO PORTILLO, is an 79-year-old female presenting with management of multiple chronic conditions and preventative care. Chronic history of hip pain with the patient reporting improvement in symptoms, particularly in the right hip area, following cautious behavior, especially on stairs. The condition is currently stable with no significant exacerbations reported. Had imaging done by podiatry in January. The patient has a history of venous insufficiency, with slight swelling noted in the lower extremities. She uses compression stockings regularly to manage symptoms, although she did not wear them on the day of the visit. Type 2 Diabetes Mellitus is being managed with metformin 850 mg twice daily, with the patient's A1c remaining stable at 6.4%. There have been no recent episodes of hypoglycemia or hyperglycemia r eported. Hypertension is controlled with metoprolol 100 mg twice daily and valsartan 80 mg three times daily. Monitors her numbers closely at home. No chest pain, palpitation or shortness of breath. The patient is on lifelong anticoagulation therapy with Eliquis 2.5 mg for deep vein thrombosis. Taking medication as prescribed. No concerns with bleeding. Area of swelling was noted on the forehead, which the patient reports as painless and unchanged in size over the past few weeks. No trauma. No prior/similar event. Does not bother her, she states that her daughter is bothered by it more so. Preventative care measures include scheduling a mammogram and a bone density scan, both of which have been ordered during this visit. Attestation: Documentation on this patient encounter was supported using ambient scribe technology/ voice AI technology. The patient consented to recording for the purpose of documenting the encounter. Provider reviewed content of the generated note prior to signature. ROS Const Constitutional: No b (more content not included)... Normal [facility] - Hematology and Cell countsOrdered By: Juan F Ann on 03-15-2025 HbA1c (Bld) [Mass fraction] 6.4 % High 4.2-6.3 [facility] Potassium measurement (mass/ volume)Ordered By: Juan F Ann on 03-15-2025 Potassium (Unsp spec) [Mass/Vol] 4.8 mmol/L 3.3-5.1 [facility] Serum creatinine measurement (mass/volume)Ordered By: Juan F Ann on 03-15-2025 Creatinine [Mass/Vol] 0.67 mg/dL Low 0.70-1.20 [facility] Serum glucose measurement (m ass/volume)Ordered By: Juan F Ann on 03-15-2025 Glucose [Mass/Vol] 103 mg/dL High 70-99 [facility] Serum or plasma calcium kandace urement (mass/volume)Ordered By: Juan F Ann on 03-15-2025 Calcium [Mass/Vol] 9.6 mg/dL 7.6-11.0 [facility] Serum or plasma urea nitroge n measurement (mass/volume)Ordered By: Juan F Ann on 03-15-2025 Urea nitrogen [Mass/Vol] 19 mg/dL 4-19 [facility] Sodium levelOrdered By: Nash Ann on 03-15-2025 Sodium [Moles/Vol] 140 mmol/L 133-145 [facility] Bone Lengthon 02-11-2025 Bone Length [facility] Imaging Services [address] [place] [address] Bone Length MR#: [id number] Acct: [id number] Name: BUCKY PORTILLOPETRONA Christianson Rep #: [id number] : 1945 F 79 From: Yamil Basilio PCP: Dr. Juan F Ann MD Status: DEP CLI Study: Bone Length Date of Exam: 02/11/25 Exam# [id number] Ordering Dr: Maurilio Sousa DPM PROCEDURE: BONE LENGTH 02/11/2025 REASON FOR EXAM: LIMB LENGHT DIFFERENCE F, age 79 y/o . TECHNIQUE: BONE LENGTH COMPARISON: None. RAD/Bone Length IMPRESSION: Single AP bilateral lower extremity view obtained. The hips, knees, and ankles are unremarkable in appearance. No significant difference in the femur length, leg length, or total lower extremity length is seen on either side. No abnormal angulation is seen. No leg length discrepancy is seen. Reading Location: [place] [address] CC: GIN Sousa; Dr. Juan F Ann MD Burn Table Operator: Signed Normal [facility] HIP, UNI W/ Pelvis 2-3 Views on 02-11-2025 HIP, UNI W/ Pelvis 2-3 Views [facility] Imaging Services [address] [place] [id number] HIP, UNI W/ Pelvis 2-3 Views MR#: [id number] Acct: [id number] Name: KHUSHBOO PORTILLO Rep #: [id number] : 1945 F 79 From: Olivier Pena MD PCP: Dr. Juan F Ann MD Status: REG CLI Study: HIP, UNI W/ Pelvis 2-3 Views Date of Exam: Exam# [id number] Ordering Dr: Maurilio Sousa DPM EXAM: XR Right Hip With Pelvis When Performed, 2 or 3 Views CLINICAL INDICATION: LOWER EXTREMITY ARTHRITIS TECHNIQUE: Two or three views of the right hip with pelvis when performed. COMPARISON: No relevant prior studies available. FINDINGS: BONES/JOINTS: Qyvm-[id number] degenerative changes of the hip joint. No acute fracture. No dislocation. SOFT TISSUES: Unremarkable. RAD/HIP, UNI W/ Pelvis 2-3 Views IMPRESSION: Degenerative changes as above. Reading Location: [facility] CC: DPMyra Sousa; Dr. Juan F Ann MD Burn Table Operator: Signed Normal [facility] Oncology Visit Reporton 11-18 Oncology Visit Report [facility] [address] [place] [address] OFFICE VISIT Date of Service: 12/09/24 1355 MR#: [id number] Acct: [id number] Name: KHUSHBOO PORTILLO Rep #: [id number] : 1945 From: Efrain Castano MD Age/Sex: 79/F [place] [facility] [place]: Signed HPI Subjective Date of Service 12/09/24 Chief Complaint Referred for Distal DVT. History of Present Illness 79-year-old woman developed right lower leg DVT in 2011, she was treated with anticoagulation. She developed right leg pain, Venous Doppler on 09/17/2024 showed acute DVT in the right peroneal and right soleus vein. She was started on Eliquis. She has been told that since this is her second unprovoked DVT, she should stay on it for life. She is referred to discuss lifelong anticoagulation. She is using compression stockings. 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 Post-menopausal Hyperlipidemia Flu vaccine need COVID-19 vaccine series completed Impacted cerumen of left ear Swallowing problem Type 2 diabetes mellitus Hypertension Surgical History History of squamous cell carcinoma excision History of carpal tunnel release history of removal of growth on forearm History of tonsillectomy Family History Father Alcoholism Sister Asthma Cancer ovarian Mother Heart disease Hypertension Brother Blood disease Social History Smoking Status: Never smoker alcohol intake: never substance use type: does not use what type of physical activity do you participate in: none ROS Constitutional Constitutional: Reports systems reviewed and no addt'l complaints, except as documented Eyes Eyes: Reports systems reviewed and no addt'l complaints, except as documented ENT HEENT: Reports systems reviewed and no addt'l complaints, except as documented Cardiovascular Cardiovascular: Reports systems reviewed and no addt'l complaints, except as documented Respiratory/Chest Respiratory/Chest: Reports systems reviewed and no addt'l complaints, except as documented Gastrointestinal Gastrointestinal: Reports systems reviewed and no addt'l complaints, except as documented Genitourinary Genitourinary: Reports systems reviewed and no addt'l complaints, except as documented Musculoskeletal Musculoskeletal: Reports systems reviewed and no addt'l complaints, except as documented Integumentary Integumentary: Reports systems reviewed and no addt'l complaints, except as documented Neurologic Neurologic: Reports systems reviewed and no addt'l complaints, except as documented Psychiatric Psychiatric: Reports systems reviewed and no addt'l complaints, except as documented Endocrine Endocrinology: Reports systems reviewed and no addt'l complaints, except as documented Allergic/Immunologi c Allergic/Immunologi c: Reports systems reviewed and no addt'l complaints, except as documented Intake Vital Signs 11/02/24 11:09 12/09/24 13:57 Height 5 ft 6 in 5 ft 6 in Weight: 83.915 kg 85.304 kg BMI 29.8 30.3 BP 128/82 H 147/83 H Blood Pressure Location Lt brachial Lt brachial Position Sitting Sitting Respiration 14 16 Pulse 75 71 Pulse Source Monitor Monitor Temp 96.9 F L 99.2 F H Temperature Source Temporal Artery Pulse Oximetry (%) 95 95 Oxygen Delivery Method room air room air Intake Is patient in pain?: No Allergies No Known Allergies Allergy (Verified 12/09/24 14:01) Medications ???Medication ???Instructions ???Recorded ???Confirmed ???Type astrpvfo-gzeg-bhoc 8 mg-folic 400 tab PO 09/10/17 12/09/24 History mcg-K 50 mcg-lutein 300 mcg tablet (Centrum Silver Women) sambucus gummy PO 04/09/24 12/09/24 History metformin 850 mg tablet 850 mg PO BID 3 months #180 tabs 0 04/23/24 12/09/24 Rx atorvastatin 20 mg tablet 20 mg PO DAILY #90 tabs 08/25/24 0 12/09/24 Rx apixaban 5 mg tablet 5 mg PO BID #180 tabs 09/17/24 Rx metoprolol tartrate 100 mg tablet See Rx Instructions .Route BID 3 11/02/24 12/09/24 Rx months #180 tabs valsartan 80 mg tablet 80 mg PO TID 3 months #270 tabs 12/09/24 Rx Have you fallen in the past year?: No Exam Physical Exam Const alert, oriented x3 and no apparent distress HEENT normocephalic, external ears normal and external nose normal Eyes PERRL, EOMs intact bilaterally, conjunctivae normal and no scleral icterus Neck supple Lymph Lymphatic: no lymphadenopathy noted (more content not included)... Normal [facility] Absolute lymphocyte countOrd ered By: Juan F Ann on 11-02-2024 Lymphocytes Auto (Unsp spec) [#/Vol] 2.24 10*3/uL 0.83-4.51 [facility] Absolute neutrophil countOrd ered By: Juan F Ann on 11-02-2024 Neutrophils (Bld) [#/Vol] 5.0 10*3/uL 2.0-7.7 [facility] Anion gap in Serum or Plasma Ordered By: Juan F Ann on 11-02-2024 Anion gap [Moles/Vol] 9 mmol/L 5- [facility] Automated lymphocyte count a s percentage of total leukocytesOrdered By: Juan F Ann on 11-02-2024 Lymphocytes/100 WBC Auto (Unsp spec) 26.0 % - [facility] BUN/creatinine ratioOrdered By: Juan F Ann on 11-02-2024 Urea nitrogen/Creatinine [Mass ratio] 33.0 mg/mg High - [facility] Basic Metabolic Profile (BMP )on 11-02-2024 BUN/CRE 33.0 RATIO High 06-07 [facility] Comment on above: Performed By: #### L 100.0100, L500.2500 #### [facility] [address] [place], [place], [id number] Calcium [Mass/Vol] 9.5 mg/dL Normal 7.6-11.0 [facility] Comment on above: Performed By: #### L 100.0100, L500.2500 #### [facility] [address] [place], [address] Chloride [Moles/Vol] 104 mmol/L Normal 98-108 [facility] Comment on above: Performed By: #### L 100.0100, L500.2500 #### [facility] [address] [place], [address] CO2 [Moles/Vol] 27.1 mmol/L Normal 21.0-32.0 [facility] Comment on above: Performed By: #### L 100.0100, L500.2500 #### [facility] [address] [place], [address] Creatinine [Mass/Vol] 0.72 mg/dL Normal 0.70-1.20 [facility] Comment on above: Performed By: #### L 100.0100, L500.2500 #### [facility] [address] [place], [address] GAP 9 Normal 5-15 [facility] Comment on above: Performed By: #### L 100.0100, L500.2500 #### [facility] [address] [place], [address] GFR/1.73 sq M.predicted among non-blacks MDRD (S/P/Bld) [Vol rate/Area] 85 mL/min/{1.73_m2} Normal >60 [facility] Comment on above: Result Comment: mL/m in/1.73m2 CKD-EPI Creatinine Equation (2020) Performed By: #### L 100.0100, L500.2500 #### [facility] [address] [place], [address] Glucose [Mass/Vol] 97 mg/dL Normal 70-99 [facility] Comment on above: Performed By: #### L 100.0100, L500.2500 #### [facility] [address] [place], [address] Potassium [Moles/Vol] 4.4 mmol/L Normal 3.3-5.1 [facility] Comment on above: Performed By: #### L 100.0100, L500.2500 #### [facility] [address] [place], [address] Sodium [Moles/Vol] 140 mmol/L Normal 133-145 [facility] Comment on above: Performed By: #### L 100.0100, L500.2500 #### [facility] [address] [place], [address] Urea nitrogen [Mass/Vol] 24 mg/dL High 4-19 [facility] Comment on above: Performed By: #### L 100.0100, L500.2500 #### [facility] [address] [place], [address] Basophil percentageOrdered B y: Juan F Ann on 11-02-2024 Basophils/100 WBC (Bld) 0.3 % 0-1 [facility] CBC W/Diff, Automatedon 10-17 Absolute Lymph 2.24 X10 3/uL Normal 0.83-4.51 [facility] Comment on above: Performed By: #### L 100.0100, L500.2500 #### [facility] [address] [place], [address] Absolute Neut 5.0 X10 3/uL Normal 2.0-7.7 [facility] Comment on above: Performed By: #### L 100.0100, L500.2500 #### [facility] [address] [place], [address] Basophils/100 WBC (Bld) 0.3 % Normal 0-1 [facility] Comment on above: Performed By: #### L 100.0100, L500.2500 #### [facility] [address] [place], [address] Eosinophils/100 WBC (Bld) 3.4 % Normal 0-5 [facility] Comment on above: Performed By: #### L 100.0100, L500.2500 #### [facility] [address] [place], [address] Erythrocyte distribution width (RBC) [Ratio] 13.0 % Normal 11.6-14.6 [facility] Comment on above: Performed By: #### L 100.0100, L500.2500 #### [facility] [address] [place], [address] Hematocrit (Bld) [Volume fraction] 43.3 % Normal 37-47 [facility] Comment on above: Performed By: #### L 100.0100, L500.2500 #### [facility] [address] [place], [address] Hemoglobin (Bld) [Mass/Vol] 13.9 g/dL Normal 12.0-15.0 [facility] Comment on above: Performed By: #### L 100.0100, L500.2500 #### [facility] [address] [place], [address] IG% 0.500 Normal 0.0-0.9 [facility] Comment on above: Result Comment: IG% - Immature Granulocytes (promyelocytes, myelocytes and metamyelocytes) > 1% indicates that a LEFT SHIFT is Present. Performed By: #### L 100.0100, L500.2500 #### [facility] [address] [place], [address] Lymphocytes/100 WBC (Bld) 26.0 % Normal 19-41 [facility] Comment on above: Performed By: #### L 100.0100, L500.2500 #### [facility] [address] [place], [address] MCH (RBC) [Entitic mass] 29.4 pg Normal 27.0-32.0 [facility] Comment on above: Performed By: #### L 100.0100, L500.2500 #### [facility] [address] [place], [address] MCHC (RBC) [Mass/Vol] 32.1 g/dL Normal 32-36 [facility] Comment on above: Performed By: #### L 100.0100, L500.2500 #### [facility] [address] [place], [address] MCV (RBC) [Entitic vol] 91.7 fL Normal 81-99 [facility] Comment on above: Performed By: #### L 100.0100, L500.2500 #### [facility] [address] [place], [address] Monocytes/100 WBC (Bld) 11.6 % High 0-10 [facility] Comment on above: Performed By: #### L 100.0100, L500.2500 #### [facility] [address] [place], [address] Neutrophils/100 WBC (Bld) 58.2 % Normal 47-70 [facility] Comment on above: Performed By: #### L 100.0100, L500.2500 #### [facility] [address] [place], [address] Nucleated RBC (Bld) [#/Vol] 0 10*3/uL Normal 0-5 [facility] Comment on above: Performed By: #### L 100.0100, L500.2500 #### [facility] [address] [place], [address] Platelet mean volume (Bld) [Entitic vol] 10.9 fL Normal 6.2-12.0 [facility] Comment on above: Performed By: #### L 100.0100, L500.2500 #### [facility] [address] [place], [address] Platelets (Bld) [#/Vol] 306 10*3/uL Normal 150-450 [facility] Comment on above: Performed By: #### L 100.0100, L500.2500 #### [facility] [address] [place], [address] RBC (Bld) [#/Vol] 4.72 10*6/uL Normal 4.2-5.4 [facility] Comment on above: Performed By: #### L 100.0100, L500.2500 #### [facility] [address] [place], [address] RDW SD 43.7 fl Normal 35.1-43.9 [facility] Comment on above: Performed By: #### L 100.0100, L500.2500 #### [facility] [address] [place], [address] WBC (Bld) [#/Vol] 8.6 10*3/uL Normal 4.4-11.0 [facility] Comment on above: Performed By: #### L 100.0100, L500.2500 #### [facility] [address] [place], [address] Carbon dioxide, total [Moles /volume] in Central venous bloodOrdered By: Juan F Ann on 11-02-2024 CO2 [Moles/Vol] 27.1 mmol/L 21.0-32.0 [facility] Chloride assayOrdered By: Karen Ann on 11-02-2024 Chloride [Moles/Vol] 104 mmol/L 98-108 [facility] Eosinophil percentageOrdered By: Juan F Ann on 11-02-2024 Eosinophils/100 WBC (Bld) 3.4 % 0-5 [facility] Erythrocyte distribution wid th ratioOrdered By: Juan F Ann on 11-02-2024 Erythrocyte distribution width (RBC) [Ratio] 13.0 % 11.6-14.6 [facility] Erythrocyte distribution wid th standard deviationOrdered By: Juan F Ann on 11-02-2024 Erythrocyte distribution width (RBC) [Entitic vol] 43.7 fL 35.1-43.9 [facility] Erythrocyte distribution width (RBC) [Ratio] 43.7 fl 35.1-43.9 [facility] GFR/1.73 sq M.predicted jah g non-blacks MDRD (S/P/Bld) [Vol rate/Area]Ordered By: Juan F Ann on 11-02-2024 Estimated GFR (MDRD) Non-Af Amer 85 >60 [facility] Comment on above: mL/min/1.73m2 CKD-EP I Creatinine Equation (2020) Glomerular filtration rate ( GFR) estimation/1.73 sq m using serum, plasma, or whole bOrdered By: Juan F Ann on 11-02-2024 GFR/1.73 sq M.predicted among non-blacks MDRD (S/P/Bld) [Vol rate/Area] 85 mL/min/{1.73_m2} >60 [facility] Comment on above: mL/min/1.73m2 CKD-EP I Creatinine Equation (2020) Hematocrit Auto (Bld) [Volum e fraction]Ordered By: Juan F Ann on 11-02-2024 Hematocrit (Bld) [Volume fraction] 43.3 % 37-47 [facility] Hemoglobin measurementOrdere d By: Juan F Ann on 11-02-2024 Hemoglobin (Bld) [Mass/Vol] 13.9 g/dL 12.0-15.0 [facility] Immature granulocytes/100 WB C Auto (Bld)Ordered By: Juan F Ann on 11-02-2024 Immature granulocytes/100 WBC (Bld) 0.500 % 0.0-0.9 [facility] Comment on above: IG% - Immature Granu locytes (promyelocytes, myelocytes and metamyelocytes) > 1% indicates that a LEFT SHIFT is Present. Internal Medicine Office Vis chay 11-02-2024 Internal Medicine Office Visit [facility] [address] [place] [address] [place] [address] OFFICE VISIT Date of Service: 11/02/24 MR#: [id number] Acct: [id number] Name: KHUSHBOO PORTILLO Rep #: [id number] : 1945 Provider: Dr. 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 Is patient in pain?: No Allergies No Known Allergies Allergy (Verified 11/02/24 11:08) Medications ???Medication ???Instructions ???Recorded ???Confirmed ???Type olftuthv-japb-whbn 8 mg-folic 400 tab PO 09/10/17 11/02/24 History mcg-K 50 mcg-lutein 300 mcg tablet (Centrum Silver Women) valsartan 80 mg tablet 80 mg PO TID 3 months #270 tabs 11/02/24 Rx sambucus gummy PO 04/09/24 11/02/24 History metformin 850 mg tablet 850 mg PO BID 3 months #180 tabs 0 04/23/24 11/02/24 Rx atorvastatin 20 mg tablet 20 mg PO DAILY #90 tabs 08/25/24 0 11/02/24 Rx apixaban 5 mg tablet 5 mg PO BID #180 tabs 09/17/24 Rx metoprolol tartrate 100 mg tablet See Rx Instructions .Route BID 3 11/02/24 11/02/24 Rx months #180 tabs Have you fallen in the past year?: No Nurse's Note: Needs metoprol refilled. 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 Post-menopausal Hyperlipidemia Flu vaccine need COVID-19 vaccine series completed Impacted cerumen of left ear Swallowing problem Type 2 diabetes mellitus Hypertension Surgical History History of squamous cell carcinoma excision History of carpal tunnel release history of removal of growth on forearm History of tonsillectomy Family History Father Alcoholism Sister Asthma Cancer ovarian Mother Heart disease Hypertension Brother Blood disease Social History Smoking Status: Never smoker alcohol intake: never substance use type: does not use what type of physical activity do you participate in: none HPI HPI Chief Complaint: FU Chronic Conditions Details: KHUSHBOO PORTILLO, is a 79 F who presents to the office today for follow-up of her chronic conditions. No acute concerns at this time. Recently diagnosed with a right leg DVT. Prior history of DVT a few years ago. Currently on apixaban which she is taking as prescribed. Denies dark or bloody stools. A1c today is at 6.4 up slightly from 6.3. Currently on metformin, no concerns for hypoglycemia. History of hypertension, blood pressure today is at 128/82 mmHg. Currently on valsartan. No chest pain, palpitation or shortness of breath. Other chronic conditions are stable. ROS Const Constitutional: No body ache, chills, excessive sweating, fatigue, fever(s), frequent falls, headache(s), snoring, weakness, sleep problems or change in appetite Eyes Eyes: No blurry vision, change in vision, bulging eyes, floaters, visual disturbances, eye pain or Light sensitivity ENT ENT: No abnormal hearing, ear or mastoid pain, tinnitus, balance problems, nosebleed/epistaxis , nasal congestion, headache(s), neck pain or sore throat Resp Respiratory: No cough, excessive phlegm production, pain on inspiration, shortness of breath, snoring or wheezing Cardio Cardiology: No chest pain at rest, chest pain with exertion, excessive sweating, shortness of breath, dyspnea on exertion, lightheadedness, orthopnea or palpitations Gastro GI: No abdominal pain, change in bowel habits, constipation, cramping, diarrhea, nausea/dyspepsia or vomiting Genitourinary-Femal e: No burning urination, painful urination, urinary incontinence, urinary frequency, suprapubic fullness, side pain, abnormal vaginal bleeding or pelvic pain Musc Musculoskeletal: No abnormal gait, joint pain, back pain, limited range of motion, muscle cramps, neck pain or numbness Skin Skin: No dry skin, redness, excessive hair growth, yellowing of the eye, lesions, itchy eyes, rash or wounds Neuro Neurology: No abnormal gait, abnormal hearing, behavioral changes, unsteady gait/balance, weakness, frequent falls, headache(s), memory loss, n (more content not included)... Normal [facility] - Hematology and Cell countsOrdered By: Juan F Ann on 11-02-2024 HbA1c (Bld) [Mass fraction] 6.4 % High 4.2-6.3 [facility] Lymphocytes Auto (Unsp spec) [#/Vol]Ordered By: Juan F Ann on 11-02-2024 Lymphocytes (Bld) [#/Vol] 2.24 10*3/uL 0.83-4.51 [facility] Lymphocytes/100 WBC Auto (Un sp spec)Ordered By: Juan F Ann on 11-02-2024 Lymphocytes/100 WBC (Bld) 26.0 % 19-41 [facility] MCV (mean corpuscular volume ) determinationOrdered By: Juan F Ann on 11-02-2024 MCV (RBC) [Entitic vol] 91.7 fL 81-99 [facility] Mean corpuscular hemoglobin (MCH) determinationOrdered By: Juan F Ann on 11-02-2024 MCH (RBC) [Entitic mass] 29.4 pg 27.0-32.0 [facility] Mean corpuscular hemoglobin concentration (MCHC) determinationOrdered By: Juan F Ann on 11-02-2024 MCHC (RBC) [Mass/Vol] 32.1 g/dL 32-36 [facility] Mean platelet volume determi nationOrdered By: JuanF Rodriguezghe on 11-02-2024 Platelet mean volume (Bld) [Entitic vol] 10.9 fL 6.2-12.0 [facility] Monocyte percentageOrdered B y: Karengissell Michaelkaithaven on 11-02-2024 Monocytes/100 WBC (Bld) 11.6 % High 0-10 [facility] Neutrophil percentageOrdered By: Juan F Rodriguezkaithaven on 11-02-2024 Neutrophils/100 WBC (Bld) 58.2 % 47-70 [facility] Nucleated red blood cell per centageOrdered By: Nashfrancescohari Rodriguezkaithaven on 11-02-2024 Nucleated RBC/100 WBC (Bld) [Ratio] 0 % 0-5 [facility] Platelet countOrdered By: Karen nisreenhari Ann on 11-02-2024 Platelets (Bld) [#/Vol] 306 10*3/uL 150-450 [facility] Potassium (Unsp spec) [Mass/ Vol]Ordered By: Juan F Ann on 11-02-2024 Potassium [Moles/Vol] 4.4 mmol/L 3.3-5.1 [facility] Potassium measurement (mass/ volume)Ordered By: Juan F Ann on 11-02-2024 Potassium (Unsp spec) [Mass/Vol] 4.4 mmol/L 3.3-5.1 [facility] RBC Auto (Bld) [#/Vol]Ordere d By: Nashfrancescohari Rodriguezkaithaven on 11-02-2024 RBC (Bld) [#/Vol] 4.72 10*6/uL 4.2-5.4 [facility] Serum creatinine measurement (mass/volume)Ordered By: Juan F Ann on 11-02-2024 Creatinine [Mass/Vol] 0.72 mg/dL 0.70-1.20 [facility] Serum glucose measurement (m ass/volume)Ordered By: Juan F Ann on 11-02-2024 Glucose [Mass/Vol] 97 mg/dL 70-99 [facility] Serum or plasma calcium kandace urement (mass/volume)Ordered By: Juan F Ann on 11-02-2024 Calcium [Mass/Vol] 9.5 mg/dL 7.6-11.0 [facility] Serum or plasma urea nitroge n measurement (mass/volume)Ordered By: Juan F Michaelzhang on 11-02-2024 Urea nitrogen [Mass/Vol] 24 mg/dL High 4-19 [facility] Sodium levelOrdered By: Nash najera Michaelzhang on 11-02-2024 Sodium [Moles/Vol] 140 mmol/L 133-145 [facility] White blood cell (WBC) count Ordered By: Juan F Michaelzhang on 11-02-2024 WBC (Bld) [#/Vol] 8.6 10*3/uL 4.4-11.0 [facility] Internal Medicine Office Vis iton 09-30-2024 Internal Medicine Office Visit [facility] [place] [address] [place] [address] OFFICE VISIT Date of Service: 09/30/24 MR#: [id number] Acct: [id number] Name: KHUSHBOO PORTILLO Rep #: [id number] : 1945 Provider: LAUREN Savage Age/Sex: 79/F [place] [facility] [place] Status: Signed Intake Vital Signs 08/25/24 14:28 09/30/24 14:02 Height 5 ft 6 in 5 ft 6 in Weight: 187 lb 185 lb 2 oz BMI 30.2 29.8 BP 140/84 H 138/78 H Blood Pressure Location Lt brachial Rt brachial Position Sitting Sitting Respiration 16 14 Pulse 77 88 Pulse Source Monitor Monitor Temp 98.0 F 96 F L Temp Source Temporal Temporal Pulse Oximetry (%) 95 96 Oxygen Delivery Method room air room air Intake Visit Reasons: ACUTE FU FROM TESTING PER DR ANN 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 by: Self Allergies No Known Allergies Allergy (Verified 09/30/24 13:57) Medications ???Medication ???Instructions ???Recorded ???Confirmed ???Type [id number] 8 mg-folic 400 tab PO 09/10/17 09/30/24 History mcg-K 50 mcg-lutein 300 mcg tablet (Centrum Silver Women) metoprolol tartrate 100 mg tablet See Rx Instructions .Route BID 3 01/02/24 09/30/24 Rx months #180 tabs valsartan 80 mg tablet 80 mg PO TID 3 months #270 tabs 09/30/24 Rx britton mendez PO 04/09/24 09/30/24 History metformin 850 mg tablet 850 mg PO BID 3 months #180 tabs 0 04/23/24 09/30/24 Rx atorvastatin 20 mg tablet 20 mg PO DAILY #90 tabs 08/25/24 0 09/30/24 Rx apixaban 5 mg (74 tabs) tablets in See Rx Instructions PO PER PKG D IR 09/17/24 09/30/24 Rx a dose pack #74 tabs apixaban 5 mg tablet 5 mg PO BID #180 tabs 09/17/2408/12 Rx Have you fallen in the past year?: No PFSH Medical History Head pain Palpitations Localized swelling, mass and lump, right upper limb Health care maintenance Counseling about travel 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 Post-menopausal Hyperlipidemia Flu vaccine need COVID-19 vaccine series completed Impacted cerumen of left ear Swallowing problem Type 2 diabetes mellitus Hypertension Surgical History History of squamous cell carcinoma excision History of carpal tunnel release history of removal of growth on forearm History of tonsillectomy Family History Father Alcoholism Sister Asthma Cancer ovarian Mother Heart disease Hypertension Brother Blood disease Social History Smoking Status: Never smoker alcohol intake: never substance use type: does not use what type of physical activity do you participate in: none HPI HPI Chief Complaint: fu Details: KHUSHBOO PORTILLO, is a 79 F who presents to the office today for a f/u. Patient states that she doesn't really know why she is here. She was just told to make an appt. Patient had an annual appt with her neurologist in August where she mentioned to him about her calf and they ordered a doppler where they found that she had blood clot. She states that it wasn't really painful and that she didn't have redness, swelling, or warmth, but that it was just an inconvenience and so she mentioned it. Patient had a previous DVT 12 year ago. They were not certain as well why this occurred as she had not had surgery and she had not had any long trips or travel. Patient did travel to [place]. [facility] and then did quite a bit of driving then as well. Patient has been taking the starter pack of the Eliquis as directed and is about to start her maintenance medication. She states that she has not had any more discomfort in her leg. She has not noticed any bruising or any type of bleeding she does not use nicotine She does drink tea pretty regularly in the winter but not excessive amts. She does not use ETOH She does not get regular activity this time of year. ROS Const Constitutional: No body ache, excessive sweating, fatigue, fever(s), frequent falls, headache(s), snoring, weakness, weight change, sleep problems or change in appetite Eyes Eyes: No blurry vision, change in vision, eye pain or Light sensitivity ENT ENT: No abnormal hearing, ear or mastoid pain, tinnitus, nasal congestion, headache(s), neck pain or sore throat Resp Respiratory: No cough, shortness of breath, snoring or wheezing Cardio Cardiology: No chest pain at rest, chest pain with exertion, excessive sweating, shortness of breath, dyspnea on exertion, lightheadedness, orthopnea or palpitations Gastro GI: No abdominal pain, change in bowel habits, constipation, cramping, diarrhea, nausea/dyspepsia or vomiting Genitourinary-Femal e: No burni (more content not included)... Normal [facility] Bilirubin directOrdered By: Cooper Echeverria on 09-28-2024 Bilirubin.direct [Mass/Vol] 0.16 mg/dL 0.00-0.30 [facility] Bilirubin, totalOrdered By: Cooper Echeverria on 09-28-2024 Bilirubin [Mass/Vol] 0.60 mg/dL 0.20-1.00 [facility] Comment on above: For patients on eltr ombopag therapy, use of Dimension [place] TBIL is not recommended. High density lipoprotein (HD L) measurementOrdered By: Cooper Echeverria on 09-28-2024 Cholesterol in HDL [Mass/Vol] 58 mg/dL >40 [facility] Comment on above: The drugs N-Acetylcy steine and Metamizole may falsely depress this assay. Reference Range HDL <40 mg/dL Low HDL Cholesterol HDL >or= 60 mg/dL High HDL Cholesterol Laboratory - Chemistry and C hemistry - challengeOrdered By: Cooper Echeverria on 09-28-2024 AST [Catalytic activity/Vol] 18 U/L 15-37 [facility] Lipid Profileon 09-28-2024 Cholesterol [Mass/Vol] 136 mg/dL Normal 200 [facility] Comment on above: Result Comment: <200 mg/dL Desirable 200-240 mg/dL Borderline >240 mg/dL High Risk Performed By: #### L 500.4100, L500.3400 #### [facility] [address] [place], [address] Cholesterol in HDL [Mass/Vol] 58 mg/dL Normal [facility] Comment on above: Result Comment: The drugs N-Acetylcysteine and Metamizole may falsely depress this assay. Reference Range HDL <40 mg/dL Low HDL Cholesterol HDL >or= 60 mg/dL High HDL Cholesterol Performed By: #### L 500.4100, L500.3400 #### [facility] [address] [place], [address] Cholesterol in LDL [Mass/Vol] 53 mg/dL Normal 0-130 [facility] Comment on above: Performed By: #### L 500.4100, L500.3400 #### [facility] [address] [place], [address] Cholesterol in VLDL [Mass/Vol] 25 mg/dL Normal 5-40 [facility] Comment on above: Performed By: #### L 500.4100, L500.3400 #### [facility] [address] [place], [address] Triglyceride [Mass/Vol] 124 mg/dL Normal [facility] Comment on above: Result Comment: The drugs N-Acetylcysteine and Metamizole may falsely depress this assay. Serum Triglycerides Reference Interval Normal <150 mg/dL Borderline high 150 - 199 mg/dL High 200 - 499 mg/dL Very High > or = 500 mg/dL Performed By: #### L 500.4100, L500.3400 #### [facility] [address] [place], [address] Liver Profileon 09-28-2024 Albumin [Mass/Vol] 3.3 g/dL Normal 3.2-5.0 [facility] Comment on above: Performed By: #### L 500.4100, L500.3400 #### [facility] [address] [place], [address] ALK P 68 U/L Normal 45-117 [facility] Comment on above: Performed By: #### L 500.4100, L500.3400 #### [facility] [address] [place], [address] ALT [Catalytic activity/Vol] 27 U/L Normal 13-56 [facility] Comment on above: Performed By: #### L 500.4100, L500.3400 #### [facility] [address] [place], [address] AST [Catalytic activity/Vol] 18 U/L Normal 15-37 [facility] Comment on above: Performed By: #### L 500.4100, L500.3400 #### [facility] [address] [place], [address] Bilirubin [Mass/Vol] 0.60 mg/dL Normal 0.20-1.00 [facility] Comment on above: Result Comment: For patients on eltrombopag therapy, use of Dimension [place] TBIL is not recommended. Performed By: #### L 500.4100, L500.3400 #### [facility] [address] [place], [address] Bilirubin.direct [Mass/Vol] 0.16 mg/dL Normal 0.00-0.30 [facility] Comment on above: Performed By: #### L 500.4100, L500.3400 #### [facility] [address] [place], [address] Globulin (S) [Mass/Vol] 3.6 g/dL Normal 2.2-4.2 [facility] Comment on above: Performed By: #### L 500.4100, L500.3400 #### [facility] [address] [place], [address] T PROT 6.9 g/dL Normal 6.4-8.2 [facility] Comment on above: Performed By: #### L 500.4100, L500.3400 #### [facility] [address] [place], [address] Low density lipoprotein (LDL ) cholesterol measurementOrdered By: Cooper Echeverria on 09-28-2024 Cholesterol in LDL [Mass/Vol] 53 mg/dL 0-130 [facility] Serum globulin measurementOr dered By: Cooper Echeverria on 09-28-2024 Globulin (S) [Mass/Vol] 3.6 g/dL 2.2-4.2 [facility] Serum or plasma alanine danielle otransferase (ALT) measurementOrdered By: Cooper Echeverria on 09-28-2024 ALT [Catalytic activity/Vol] 27 U/L 13-56 [facility] Serum or plasma albumin kandace urement (mass/volume)Ordered By: Cooper Echeverria on 09-28-2024 Albumin [Mass/Vol] 3.3 g/dL 3.2-5.0 [facility] Serum or plasma alkaline virgilio sphatase measurementOrdered By: Cooper Echeverria on 09-28-2024 ALP [Catalytic activity/Vol] 68 U/L 45-117 [facility] Serum or plasma cholesterol measurement (mass/volume)Ordered By: Cooper Echeverria on 09-28-2024 Cholesterol [Mass/Vol] 136 mg/dL <200 [facility] Comment on above: <200 mg/dL Desirable 200-240 mg/dL Borderline >240 mg/dL High Risk Total proteinOrdered By: Mario Echeverria on 09-28-2024 Protein [Mass/Vol] 6.9 g/dL 6.4-8.2 [facility] Triglycerides measurementOrd ered By: Cooper Echeverria on 09-28-2024 Triglyceride [Mass/Vol] 124 mg/dL <199 [facility] Comment on above: The drugs N-Acetylcy steine and Metamizole may falsely depress this assay.Serum Triglycerides Reference Interval Normal <150 mg/dL Borderline high 150 - 199 mg/dL High 200 - 499 mg/dL Very High > or = 500 mg/dL Very low density lipoprotein (VLDL) cholesterol measurementOrdered By: Cooper Echeverria on 09-28-2024 VLDL Cholesterol 25 mg/dL 5-40 [facility] Carotid Duplex Ultrasoundon 09-17-2024 Carotid Duplex Ultrasound [facility] [address] [place] [address] Carotid Duplex Ultrasound 09/17/24 1411 MR#: [id number] Acct: [id number] Name: KHUSHBOO PORTILLO Rep #: [id number] : 1945 79 From: Sanket Scherer MD Attending Dr: Dr. Cooper Echeverria MD Status: R EG CLI Ordering Dr: Cooper Echeverria MD Date: 09/17/24 Location[place] [facility] [place] Sex: F C Admitted: Reason For Study: Visual Scintillations Rt. Velocities/BP Lt. Velocities/BP Prox CCA 71.1/11.6 cm/sec. Prox CCA 88.8/20.0 cm/sec. Mid CCA 54.1/10.7 cm/sec. Mid CCA 70.4/17.6 cm/sec. Dist CCA 49.4/9.7 cm/sec. Dist CCA 58.1/16.3 cm/sec. Prox ICA 42.9/8.0 cm/sec. Prox ICA 57.9/20.1 cm/sec. Mid ICA 84.4/27.7 cm/sec. Mid ICA 68.3/21.1 cm/sec. Dist ICA 64.3/15.6 cm/sec. Dist ICA 85.0/27.8 cm/sec. Rt. ICA/CCA = 1.6. Lt. ICA/CCA = 1.2. Prox ECA 70.2/6.9 cm/sec. Prox ECA 60.5/7.7 cm/sec. Rt. Vert. 60.5/7.7 cm/sec. Lt. Vert. 58.1/10.1 cm/sec. Right Extracranial There is intimal thickening but no significant atherosclerotic plaque noted in the right common carotid artery. There is intimal thickening but no significant atherosclerotic plaque noted in the right internal carotid artery. There is intimal thickening but no significant atherosclerotic plaque noted in the right external carotid artery. Antegrade flow is noted in the right vertebral artery. Left Extracranial There is intimal thickening but no significant atherosclerotic plaque noted in the left common carotid artery. There is intimal thickening but no significant atherosclerotic plaque noted in the left internal carotid artery. There is intimal thickening but no significant atherosclerotic plaque noted in the left external carotid artery. Antegrade flow is noted in the left vertebral artery. Procedure Carotid Duplex [id number]. This is a Carotid Duplex examination using B-mode, color flow and specral Doppler. Exam performed in department. VL/Carotid Duplex Ultrasound Interpretation Summary Normal right extracranial internal carotid. Normal left extracranial internal carotid. Patent and antegrade vertebrals bilaterally. __ Ordering Physician: Cooper Echeverria Referring Physician: Juan F Ann Performed By: Kip Redd RVT and Student 09/17/24 1648 Date Sanket Scherer MD CC: Dr. Juan F Ann MD; Dr. Cooper Echeverria MD Date Dictated: 09/17/24 1411 Date Transcribed: 09/17/24 1648 Burn Table Operator: Signed Normal [facility] Venous Duplex US, Unilateral on 09-17-2024 Venous Duplex US, Unilateral [facility] [address] [place], [place] [address] Venous Duplex US, Unilateral 09/17/24 1445 MR#: [id number] Acct: [id number] Name: KHUSHBOO PORTILLO Rep #: [id number] : 1945 79 From: Sanket Scherer MD Attending Dr: Dr. Cooper Echeverria MD Status: R EG CLI Ordering Dr: Cooper Echeverria MD Date: 09/17/24 Location: [facility] Sex: F C Admitted: Reason For Study: Hx LE DVT RIGHT LEFT GSV is normal. CFV is compressible, spontaneous, phasic, CFV is compressible, spontaneous, phasic, competent, and demonstrates normal competent and demonstrates normal augmentation. augmentation. FV is compressible, spontaneous, phasic, competent and demonstrates normal augmentation. POP V is compressible, spontaneous, phasic, competent and demonstrates normal augmentation. T/P Trunk is compressible. PTV is compressible. Acute deep vein thrombosis is noted in the Per V. It is dilated and NONCOMPRESSIBLE. Acute deep vein thrombosis is noted in the right soleus vein. Procedure This is a venous duplex using B-mode, color flow and spectral Doppler. Exam performed in department. A preliminary report was called and/or faxed to Cooper Echeverria MD and Monica EUGENE at Dr. Ann's office. VL/Venous Duplex US, Unilateral Interpretation Summary Acute deep vein thrombosis is noted in the right peroneal vein, soleus vein __ Ordering Physician: Cooper Echeverria Referring Physician: Juan F Ann Performed By: Kip Redd RVT and Student 09/17/241649 Date Sanket Scherer MD CC: Dr. Juan F Ann MD; Dr. Cooper Echeverria MD Date Dictated: 09/17/24 1445 Date Transcribed: 09/17/241649 Burn Table Operator: Signed Normal [facility] Neurology Visit Reporton Neurology Visit Report [facility] [address] [place] [address] OFFICE VISIT Date of Service: 08/25/24 MR#: [id number] Acct: [id number] Name: KHUSHBOO PORTILLO Rep #: [id number] : 1945 Provider: Dr. Cooper ornelas MD Age/Sex: 79/F [place] [facility] [place] Status: Signed with Addenda ADDENDUM by Dr. Cooper Echeverria MD on 09/17/24 at 1648 Addendum Addendum (09/17/2024): A message was received today from the vascular lab that the patient's right lower extremity venous ultrasound revealed an acute deep venous thromboses of the right peroneal and right saphenous veins. The patient's primary care provider's office, Dr. Ann, was contacted with this information and the patient will be contacted by Dr. Ann's office to address management. When I spoke to the patient by phone today, the patient denied chest pain or shortness of breath. 09/17/241647 Date Cooper Echeverria MD cc: * Signed HPI [facility] Chief Complaint: Details: Interim History: Khushboo returns for follow-up visit. She has a history of hypertension, hyperlipidemia, diabetes mellitus and chronic bilateral hearing loss. In December 2022, she began experiencing visual impairment that she described as pixilation of her left visual field and difficulty seeing things clearly in the left visual field (such as the left side of pages when she reads). She was seen by her eye doctor and the patient reported that no intraocular pathology to account for her symptoms was identified (an official report of her eye exam is presently not available). A head MRI in December 2022 revealed small areas of enhancement in the right thalamus and right occipital lobe (cortically and subcortically). Diffusion weighted images revealed abnormal high signal in the right occipital lobe. In addition, moderate bilateral periventricular and subcortical white matter chronic small vessel ischemic disease and mild to moderate diffuse cerebral atrophy was noted. Her visual symptoms have gradually improved over time and she subsequently reported having only intermittent visual distortion in the left lower visual field (she does not distinguish which eye is affected; I suspect both eyes are affected). When her symptoms began, she experienced a transient right occipital region headache. She denied having numbness, weakness, speech difficulty, lightheadedness or vertigo. She does not have any prior history suggestive of stroke. Since her last visit in August 2023 she has had 4 or 5 episodes, each lasting about 5 minutes, of visual wavy scintillations affecting both eyes. She was not on antiplatelet therapy or a medication for her hyperlipidemia when her visual symptoms in December 2022 occurred. She has subsequently initiated aspirin 81 mg daily and atorvastatin. 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 No abnormal enhancement was noted. Diffusion weighted images did not reveal evidence of acute ischemia. She reports having a history of right lower extremity DVT in 2011. She has bilateral lower extremity edema for which she wears compression stockings. Since the beginning of August 2024 she has been experiencing right calf pain and tenderness. She has not had increased right lower extremity edema above her baseline. Physical Exam: Neuro: The patient is awake and alert and responds appropriately; PERRL, 3 mm bilaterally; EOMI; no nystagmus; visual coats are full Extremities: Moderate bilateral hamm pitting edema is noted; right calf tenderness is noted; right lower extremity varicose veins are noted Supplemental Info EKG (08/28/2019): Normal sinus rhythm. Low voltage QRS. Head MRI with and without contrast with attention to the orbits (01/04/2023): FINDINGS: HEMISPHERES, CEREBELLUM AND BRAINSTEM: 1. The cerebral parenchyma, ventricular system, subarachnoid spaces have normal configuration and density. There is a normal gyral pattern. There is normal dickinson/white differentiation. No midline shift.. 2. There are mild involutional changes and chronic microvascular deep white matter changes. No areas fluid restriction or acute ischemic change. 3. There is a abnormal area of contrast enhancement within the RIGHT mid thalamus (series 12: Image 13 measuring approximately 3.6 mm in maximal dimension. No surrounding vasogenic edema or mass effect. 4. Additional area of contrast enhancement noted within the RIGHT occipital lobe, measuring approximately 11.8 x 8.3 mm (series 12: Image 6). No surrounding vasogenic edema or mass effect. 5. No other areas of abnormal intraparenchymal contrast enhancement. No evidence of hemosiderin deposition. (more content not included)... Normal [facility] Internal Medicine Office Vis chay 07-06-2024 Internal Medicine Office Visit [facility] [address] [place] [address] [place] [address] OFFICE VISIT Date of Service: 07/06/24 MR#: [id number] Acct: [id number] Name: KHUSHBOO PORTILLO Rep #: [id number] : 1945 Provider: Dr. 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 Is patient in pain?: No Allergies No Known Allergies Allergy (Verified 07/06/24 14:15) Medications ???Medication ???Instructions ???Recorded ???Confirmed ???Type [id number] 8 mg-folic 400 tab PO 09/10/17 07/06/24 History mcg-K 50 mcg-lutein 300 mcg tablet (Centrum Silver Women) atorvastatin 20 mg tablet 20 mg PO DAILY #90 tabs 09/09/23 07/06/24 Rx aspirin 81 mg tablet,delayed 81 mg PO DAILY 10/09/23 07/06/24 History release (Adult Low Dose Aspirin) metoprolol tartrate 100 mg tablet See Rx Instructions .Route BID 3 01/02/24 07/06/24 Rx months #180 tabs valsartan 80 mg tablet 80 mg PO TID 3 months #270 tabs 02/10/24 07/06/24 Rx sambucus gummy PO 04/09/24 07/06/24 History metformin 850 mg tablet 850 mg PO BID 3 months #180 tabs 04/23/24 07/06/24 Rx Have you fallen in the past year?: No PFSH Medical History (Updated 07/06/24 @ 16:[address] 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 Post-menopausal Hyperlipidemia Flu vaccine need COVID-19 vaccine series completed Impacted cerumen of left ear Swallowing problem Type 2 diabetes mellitus Hypertension Surgical History History of squamous cell carcinoma excision History of carpal tunnel release history of removal of growth on forearm History of tonsillectomy Family History Father Alcoholism Sister Asthma Cancer ovarian Mother Heart disease Hypertension Brother Blood disease Social History Smoking Status: Never smoker alcohol intake: never substance use type: does not use what type of physical activity do you participate in: none HPI HPI Chief Complaint: 3m f/u Details: KHUSHBOO PORTILLO, is a 79 F who presents to the office today for follow-up of her chronic conditions. Also has some concerns. She reports a pain on the right side of her lower head. Intermittent. Not happening at this time. No known precipitating factor. Was taking magnesium and attributed to this initially however stopped taking magnesium with persistent symptoms. No nausea or blurring of her vision. No other associated factors. A1c is at 6.3 down from 6.6. Taking her medication as prescribed. Has been more active lately. No concerns for hypoglycemia. History of hypertension, blood pressure is also stable at 122 over 78 mmHg. No chest pain, palpitation or shortness of breath. Other chronic medical conditions are stable. ROS Const Constitutional: No body ache, chills, excessive sweating, fatigue, fever(s), frequent falls, headache(s), snoring, weakness or change in appetite Eyes Eyes: No blurry vision, change in vision, eye pain or Light sensitivity ENT ENT: No abnormal hearing, ear or mastoid pain, tinnitus, nasal congestion, headache(s), neck pain or sore throat Resp Respiratory: No cough, shortness of breath, snoring or wheezing Cardio Cardiology: No chest pain at rest, chest pain with exertion, excessive sweating, dyspnea on exertion, lightheadedness, orthopnea or palpitations Gastro GI: No abdominal pain, change in bowel habits, constipation, cramping, diarrhea, nausea/dyspepsia or vomiting Genitourinary-Femal e: No burning urination, painful urination, urinary incontinence or urinary frequency Musc Musculoskeletal: No abnormal gait, joint pain, back pain, limited range of motion, muscle weakness, neck pain or numbness Skin Skin: No dry skin, redness, lesions, itchy eyes, rash or wounds Neuro Neurology: No abnormal gait, abnormal hearing, weakness, frequent falls, headache(s), memory loss or numbness Psych Psychiatric: No anxiety, No change in appetite, No depression, No memory loss and No Thoughts of harming yourself/Others Endo Endocrine: No cold intolerance, excessive sweating, fatigue, flushing, heat intolerance, increased thirst/dri (more content not included)... Normal [facility] Microalb:Creat Ratio,Random URon 04-13-2024 Creatinine [Mass/Vol] 129.00 mg/dL Normal NO RAN GE EST. [facility] Comment on above: Performed By: #### L 502.0250 #### [facility] [address] [place], [place], [address] MALB:CRE 5.4 mg/g CRE Normal <30 mg/g CRE [facility] Comment on above: Performed By: #### L 502.0250 #### [facility] [address] [place], [address] MICROALBUMIN,UR 7.0 mg/L Normal NO RANGE EST. [facility] Comment on above: Performed By: #### L 502.0250 #### [facility] [address] [place], [address] Basic Metabolic Profile (BMP )on 04-09-2024 BUN/CRE 27.8 RATIO High 10-20 [facility] Comment on above: Performed By: #### L 501.5200, L100.0100, L500.2500 #### [facility] [address] [place], [address] CA,Total 9.2 mg/dL Normal 8.5-10.1 [facility] Comment on above: Performed By: #### L 501.5200, L100.0100, L500.2500 #### [facility] [address] [place], [address] Chloride [Moles/Vol] 104 mmol/L Normal 98-107 [facility] Comment on above: Performed By: #### L 501.5200, L100.0100, L500.2500 #### [facility] [address] [place], [address] CO2 [Moles/Vol] 29.0 mmol/L Normal 21.0-32.0 [facility] Comment on above: Performed By: #### L 501.5200, L100.0100, L500.2500 #### [facility] [address] [place], [address] Creatinine [Mass/Vol] 0.83 mg/dL Normal 0.55-1.02 [facility] Comment on above: Result Comment: The validity of the calculated GFR GFRAA in patients over 70 years has not been determined. Clinical correlation is essential. Performed By: #### L 501.5200, L100.0100, L500.2500 #### [facility] [address] [place], [address] EST GFR - AA 86 mL/min Normal >60 [facility] Comment on above: Result Comment: Afri can Romanian GFR Calc Performed By: #### L 501.5200, L100.0100, L500.2500 #### [facility] [address] [place], [address] GAP 6 Normal 5-15 [facility] Comment on above: Performed By: #### L 501.5200, L100.0100, L500.2500 #### [facility] [address] [place], [address] GFR/1.73 sq M.predicted among non-blacks MDRD (S/P/Bld) [Vol rate/Area] 71 mL/min/{1.73_m2} Normal >60 [facility] Comment on above: Result Comment: Non- GFR Calc Performed By: #### L 501.5200, L100.0100, L500.2500 #### [facility] [address] [place], [address] Glucose [Mass/Vol] 198 mg/dL High 74-106 [facility] Comment on above: Result Comment: Fast ing Glucose result greater than or equal to 126 mg/dL suggests DIABETES MELLITUS per A.D.A. criteria. Performed By: #### L 501.5200, L100.0100, L500.2500 #### [facility] [address] [place], [address] Potassium [Moles/Vol] 4.3 mmol/L Normal 3.5-5.1 [facility] Comment on above: Performed By: #### L 501.5200, L100.0100, L500.2500 #### [facility] [address] [place], [address] Sodium [Moles/Vol] 139 mmol/L Normal 136-145 [facility] Comment on above: Performed By: #### L 501.5200, L100.0100, L500.2500 #### [facility] [address] [place], [address] Urea nitrogen [Mass/Vol] 23 mg/dL High 7-18 [facility] Comment on above: Performed By: #### L 501.5200, L100.0100, L500.2500 #### [facility] [address] [place], [address] CBC W/Diff, Automatedon 08- 2-2023 Absolute Lymph 1.99 X10 3/uL Normal 0.83-4.51 [facility] Comment on above: Performed By: #### L 501.5200, L100.0100, L500.2500 #### [facility] [address] [place], [address] Absolute Neut 4.3 X10 3/uL Normal 2.0-7.7 [facility] Comment on above: Performed By: #### L 501.5200, L100.0100, L500.2500 #### [facility] [address] [place], [address] Basophils/100 WBC (Bld) 0.4 % Normal 0-1 [facility] Comment on above: Performed By: #### L 501.5200, L100.0100, L500.2500 #### [facility] [address] [place], [address] Eosinophils/100 WBC (Bld) 4.2 % Normal 0-5 [facility] Comment on above: Performed By: #### L [id number], L100.0100, L500.2500 #### [facility] [address] [place], [address] Erythrocyte distribution width (RBC) [Ratio] 12.6 % Normal 11.6-14.6 [facility] Comment on above: Performed By: #### L 501.5200, L100.0100, L500.2500 #### [facility] [address] [place], [address] Hematocrit (Bld) [Volume fraction] 42.9 % Normal 37-47 [facility] Comment on above: Performed By: #### L 501.5200, L100.0100, L500.2500 #### [facility] [address] [place], [address] Hemoglobin (Bld) [Mass/Vol] 13.8 g/dL Normal 12.0-15.0 [facility] Comment on above: Performed By: #### L 501.5200, L100.0100, L500.2500 #### [facility] [address] [place], [address] IG% 0.400 Normal 0.0-0.9 [facility] Comment on above: Result Comment: IG% - Immature Granulocytes (promyelocytes, myelocytes and metamyelocytes) > 1% indicates that a LEFT SHIFT is Present. Performed By: #### L 501.5200, L100.0100, L500.2500 #### [facility] [address] [place], [address] Lymphocytes/100 WBC (Bld) 26.7 % Normal 19-41 [facility] Comment on above: Performed By: #### L 501.5200, L100.0100, L500.2500 #### [facility] [address] [place], [address] MCH (RBC) [Entitic mass] 29.9 pg Normal 27.0-32.0 [facility] Comment on above: Performed By: #### L 501.5200, L100.0100, L500.2500 #### [facility] [address] [place], [address] MCHC (RBC) [Mass/Vol] 32.2 g/dL Normal 32-36 [facility] Comment on above: Performed By: #### L 501.5200, L100.0100, L500.2500 #### [facility] [address] [place], [address] MCV (RBC) [Entitic vol] 93.1 fL Normal 81-99 [facility] Comment on above: Performed By: #### L 501.5200, L100.0100, L500.2500 #### [facility] [address] [place], [address] Monocytes/100 WBC (Bld) 10.6 % High 0-10 [facility] Comment on above: Performed By: #### L 501.5200, L100.0100, L500.2500 #### [facility] [address] [place], [address] Neutrophils/100 WBC (Bld) 57.7 % Normal 47-70 [facility] Comment on above: Performed By: #### L 501.5200, L100.0100, L500.2500 #### [facility] [address] [place], [address] Nucleated RBC (Bld) [#/Vol] 0 10*3/uL Normal 0-5 [facility] Comment on above: Performed By: #### L 501.5200, L100.0100, L500.2500 #### [facility] [address] [place], [address] Platelet mean volume (Bld) [Entitic vol] 10.9 fL Normal 6.2-12.0 [facility] Comment on above: Performed By: #### L 501.5200, L100.0100, L500.2500 #### [facility] [address] [place], [address] Platelets (Bld) [#/Vol] 312 10*3/uL Normal 150-450 [facility] Comment on above: Performed By: #### L 501.5200, L100.0100, L500.2500 #### [facility] [address] [place], [address] RBC (Bld) [#/Vol] 4.61 10*6/uL Normal 4.2-5.4 [facility] Comment on above: Performed By: #### L 501.5200, L100.0100, L500.2500 #### [facility] [address] [place], [address] RDW SD 42.9 fl Normal 35.1-43.9 [facility] Comment on above: Performed By: #### L 501.5200, L100.0100, L500.2500 #### [facility] [address] [place], [address] WBC (Bld) [#/Vol] 7.4 10*3/uL Normal 4.4-11.0 [facility] Comment on above: Performed By: #### L 501.5200, L100.0100, L500.2500 #### [facility] [address] [place], [address] Internal Medicine Office Vis itomarina 04-09-2024 Internal Medicine Office Visit [facility] [address] [place] [address] [place] [address] OFFICE VISIT Date of Service: 04/09/24 MR#: [id number] Acct: [id number] Name: KHUSHBOO PORTILLO Rep #: [id number] : 1945 Provider: Dr. 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 by: Self Is patient in pain?: No Allergies No Known Allergies Allergy (Verified 04/09/24 13:11) Medications ???Medication ???Instructions ???Recorded ???Confirmed ???Type [id number]-ubfx-wgqm 8 mg-folic 400 tab PO 09/10/17 04/09/24 History mcg-K 50 mcg-lutein 300 mcg tablet (Centrum Silver Women) metformin 850 mg tablet 850 mg PO BID 3 months #180 tabs 07/04/23 04/09/24 Rx atorvastatin 20 mg tablet 20 mg PO DAILY #90 tabs 09/09/23 04/09/24 Rx aspirin 81 mg tablet,delayed 81 mg PO DAILY 10/09/23 04/09/24 History release (Adult Low Dose Aspirin) metoprolol tartrate 100 mg tablet See Rx Instructions .Route BID 3 01/02/24 04/09/24 Rx months #180 tabs valsartan 80 mg tablet 80 mg PO TID 3 months #270 tabs 02/10/24 04/09/24 Rx sambucus gummy PO 04/09/24 04/09/24 History Have you fallen in the past year?: No PFSH Medical History (Updated 04/09/24 @ 14:[address] 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 Post-menopausal Hyperlipidemia Flu vaccine need COVID-19 vaccine series completed Impacted cerumen of left ear Swallowing problem Type 2 diabetes mellitus Hypertension Surgical History History of squamous cell carcinoma excision History of carpal tunnel release history of removal of growth on forearm History of tonsillectomy Family History Father Alcoholism Sister Asthma Cancer ovarian Mother Heart disease Hypertension Brother Blood disease Social History Smoking Status: Never smoker alcohol intake: never substance use type: does not use what type of physical activity do you participate in: none HPI HPI Chief Complaint: 3m f/u Details: KHUSHBOO PORTILLO, is a 78 F who presents to the office today for follow-up of her chronic medical conditions. Also has some concerns. She states that she woke up with an awareness of her heartbeat a few weeks ago. Lasted for about 5 minutes. No pressure or pain. No difficulty breathing. Has not had any other concerns since then. Believes that she had an iced coffee that day which she does not typically have. History of diabetes mellitus type 2, A1c today is at 6.6 up slightly from 6.5. Taking medication as prescribed. No syncopal and near syncopal episodes. Also history of hypertension, blood pressure today at 138/80 mmHg. No chest pain, palpitation or shortness of breath. ROS Const Constitutional: No body ache, chills, excessive sweating, fatigue, fever(s), frequent falls, headache(s), snoring, weakness or change in appetite Eyes Eyes: No blurry vision, change in vision, floaters, visual disturbances, eye pain or Light sensitivity ENT ENT: No abnormal hearing, ear or mastoid pain, tinnitus, balance problems, nosebleed/epistaxis , nasal congestion, headache(s), neck pain or sore throat Resp Respiratory: No cough, excessive phlegm production, pain on inspiration, shortness of breath, snoring or wheezing Cardio Cardiology: No chest pain at rest, chest pain with exertion, excessive sweating, dyspnea on exertion, lightheadedness, orthopnea or palpitations Gastro GI: No abdominal pain, change in bowel habits, constipation, cramping, diarrhea, nausea/dyspepsia or vomiting Genitourinary-Femal e: No burning urination, painful urination, urinary incontinence, urinary frequency, suprapubic fullness or side pain Musc Musculoskeletal: No abnormal gait, joint pain, back pain, limited range of motion, muscle cramps, muscle weakness, neck pain or numbness Skin Skin: No dry skin, redness, yellowing of the eye, lesions, itchy eyes, rash or wounds Neuro Neurology: No abnormal gait, abnormal hearing, behavioral changes, unsteady gait/balance, weakness, frequent falls, headache(s), memory loss, numbness or visual disturbances Psych Psychiatric: No anxiety (more content not included)... Normal [facility] Magnesiumon 04-09-2024 Magnesium [Mass/Vol] 1.8 mg/dL Normal 1.6-2.6 [facility] Comment on above: Performed By: #### L 501.5200, L100.0100, L500.2500 #### [facility] [address] [place], [address] Basophil percentageOrdered B y: Cooper Echeverria on 09-23-2023 Bilirubin [Mass/Vol] 0.50 mg/dL 0.20-1.00 [facility] Comment on above: For patients on eltr ombopag therapy, use of Dimension [place] TBIL is not recommended. Cholesterol [Mass/Vol] 138 mg/dL <200 [facility] Comment on above: <200 mg/dL Desirable 200-240 mg/dL Borderline >240 mg/dL High Risk Protein [Mass/Vol] 7.0 g/dL 6.4-8.2 [facility] Triglyceride [Mass/Vol] 119 mg/dL <199 [facility] Comment on above: The drugs N-Acetylcy steine and Metamizole may falsely depress this assay.Serum Triglycerides Reference Interval Normal <150 mg/dL Borderline high 150 - 199 mg/dL High 200 - 499 mg/dL Very High > or = 500 mg/dL Direct bilirubinOrdered By: Cooper Echeverria on 09-23-2023 Bilirubin.direct [Mass/Vol] 0.14 mg/dL 0.00-0.30 [facility] - Chemistry and C hemistry - challengeOrdered By: Cooper Echeverria on 09-23-2023 ALP [Catalytic activity/Vol] 82 U/L 45-117 [facility] ALT [Catalytic activity/Vol] 31 U/L 13-56 [facility] Cholesterol in HDL [Mass/Vol] 56 mg/dL >40 [facility] Comment on above: The drugs N-Acetylcy steine and Metamizole may falsely depress this assay. Reference Range HDL <40 mg/dL Low HDL Cholesterol HDL >or= 60 mg/dL High HDL Cholesterol Cholesterol in LDL [Mass/Vol] 58 mg/dL 0-130 [facility] Globulin (S) [Mass/Vol] 3.7 g/dL 2.2-4.2 [facility] No Panel InformationOrdered By: Cooper Echeverria on 09-23-2023 VLDL Cholesterol 24 mg/dL 5-40 [facility] Thin prep Papanicolaou smear with manual screeningOrdered By: Cooper Echeverria on 09-23-2023 Thin prep Papanicolaou smear with manual screening 3.3 g/dL 3.2-5.0 [facility] Thin prep Papanicolaou smear with manual screening 17 U/L 15-37 [facility] - Hematology and Cell countson 07-04-2023 HbA1c (Bld) [Mass fraction] 6.6 % 4.2-6.3 [facility] Basophil percentageOrdered B y: Cooper Echeverria on 06-19-2023 Basophil percentage < 0.9 mg/dL 0.55-1.02 [facility] No Panel InformationOrdered By: Cooper Echeverria on 06-19-2023 Bedside Estimated GFR (eGFR) > 60.0000 mL/min >60 [facility] Erythrocyte sedimentation ra teOrdered By: Cooper Echeverria on 05-07-2023 ESR (Bld) [Velocity] 3 mm/h 0-30 [facility] Basophil percentageOrdered B y: Juan F Ann on 04-16-2023 Basophil percentage < 0.9 mg/dL 0.55-1.02 [facility] No Panel InformationOrdered By: Juan F Ann on 04-16-2023 Bedside Estimated GFR (eGFR) > 60.0000 mL/min >60 [facility] Absolute lymphocyte countOrd ered By: Juan F Ann on 03-04-2023 Lymphocytes Auto (Unsp spec) [#/Vol] 2.54 10*3/uL 0.83-4.51 [facility] Basophil percentageOrdered B y: Juan F Ann on 03-04-2023 Basophils/100 WBC (Bld) 0.3 % 0-1 [facility] Bilirubin [Mass/Vol] 0.40 mg/dL 0.20-1.00 [facility] Comment on above: For patients on eltr ombopag therapy, use of Dimension [place] TBIL is not recommended. Chloride [Moles/Vol] 108 mmol/L 98-107 [facility] Cholesterol [Mass/Vol] 205 mg/dL <200 [facility] Comment on above: <200 mg/dL Desirable 200-240 mg/dL Borderline >240 mg/dL High Risk Eosinophils/100 WBC (Bld) 3.2 % 0-5 [facility] Glucose [Mass/Vol] 143 mg/dL 74-106 [facility] Comment on above: Fasting Glucose resu lt greater than or equal to 126 mg/dL suggests DIABETES MELLITUS per A.D.A. criteria. Neutrophils (Bld) [#/Vol] 5.2 10*3/uL 2.0-7.7 [facility] Neutrophils/100 WBC (Bld) 57.5 % 47-70 [facility] Potassium [Moles/Vol] 4.7 mmol/L 3.5-5.1 [facility] Protein [Mass/Vol] 6.8 g/dL 6.4-8.2 [facility] Sodium [Moles/Vol] 141 mmol/L 136-145 [facility] Triglyceride [Mass/Vol] 178 mg/dL <199 [facility] Comment on above: The drugs N-Acetylcy steine and Metamizole may falsely depress this assay.Serum Triglycerides Reference Interval Normal <150 mg/dL Borderline high 150 - 199 mg/dL High 200 - 499 mg/dL Very High > or = 500 mg/dL WBC (Bld) [#/Vol] 9.1 10*3/uL 4.4-11.0 [facility] Blood erythrocytes count (nu mber/volume)Ordered By: Juan F Ann on 03-04-2023 RBC (Bld) [#/Vol] 4.61 10*6/uL 4.2-5.4 [facility] Blood hemoglobin measurement (mass/volume)Ordered By: Juan F Ann on 03-04-2023 Hemoglobin (Bld) [Mass/Vol] 14.3 g/dL 12.0-15.0 [facility] Blood lymphocytes/100 leukoc ytesOrdered By: Juan F Ann on 03-04-2023 Lymphocytes/100 WBC (Bld) 27.9 % 19-41 [facility] Blood monocytes/100 leukocyt esOrdered By: Juan F Ann on 03-04-2023 Monocytes/100 WBC (Bld) 10.8 % 0-10 [facility] Blood platelet mean volumeOr dered By: Juan F Ann on 03-04-2023 Platelet mean volume (Bld) [Entitic vol] 10.5 fL 6.2-12.0 [facility] Determination of erythrocyte mean corpuscular volume (MCV)Ordered By: Juan F Ann on 03-04-2023 MCV (RBC) [Entitic vol] 93.3 fL 81-99 [facility] Hematocrit Auto (Bld) [Volum e fraction]Ordered By: Juan F Ann on 03-04-2023 Hematocrit (Bld) [Volume fraction] 43.0 % 37-47 [facility] - Chemistry and C hemistry - challengeOrdered By: gissell Ann on 03-04-2023 ALP [Catalytic activity/Vol] 62 U/L 45-117 [facility] ALT [Catalytic activity/Vol] 31 U/L 13-56 [facility] CO2 [Moles/Vol] 29.0 mmol/L 21.0-32.0 [facility] Globulin (S) [Mass/Vol] 3.4 g/dL 2.2-4.2 [facility] Urea nitrogen/Creatinine [Mass ratio] 27.2 mg/mg 10-20 [facility] - Hematology and Cell countsOrdered By: Nashandrewshari Ann on 03-04-2023 Erythrocyte distribution width (RBC) [Entitic vol] 43.2 fL 35.1-43.9 [facility] Erythrocyte distribution width (RBC) [Ratio] 12.6 % 11.6-14.6 [facility] Immature granulocytes/100 WBC (Bld) 0.300 % 0.0-0.9 [facility] Comment on above: IG% - Immature Granu locytes (promyelocytes, myelocytes and metamyelocytes) > 1% indicates that a LEFT SHIFT is Present. MCH (RBC) [Entitic mass] 31.0 pg 27.0-32.0 [facility] Nucleated RBC/100 WBC (Bld) [Ratio] 0 % 0-5 [facility] - Hematology and Cell countson 03-04-2023 HbA1c (Bld) [Mass fraction] 6.4 % 4.2-6.3 [facility] MCHC Auto (RBC) [Mass/Vol]Or dered By: Juan F Ann on 03-04-2023 MCHC (RBC) [Mass/Vol] 33.3 g/dL 32-36 [facility] No Panel InformationOrdered By: Juan F Ann on 03-04-2023 Estimated GFR (MDRD) Amer 88 mL/min >60 [facility] Comment on above: GFR Calc Estimated GFR (MDRD) Non-Af Amer 73 mL/min >60 [facility] Comment on above: Non- GFR Calc Platelets bldOrdered By: Dave Ann on 03-04-2023 Platelets (Bld) [#/Vol] 305 10*3/uL 150-450 [facility] Serum or plasma albumin kandace urement (mass/volume)Ordered By: Juan F Ann on 03-04-2023 Albumin [Mass/Vol] 3.4 g/dL 3.2-5.0 [facility] Serum or plasma albumin/glob ulin mass ratioOrdered By: Juan F Ann on 03-04-2023 Albumin/Globulin [Mass ratio] 1.0 {ratio} 0.9-2.4 [facility] Serum or plasma calcium kandace urement (mass/volume)Ordered By: Juan F Ann on 03-04-2023 Calcium [Mass/Vol] 9.1 mg/dL 8.5-10.1 [facility] Serum or plasma cholesterol in HDL measurement (mass/volume)Ordered By: Juan F Ann on 03-04-2023 Cholesterol in HDL [Mass/Vol] 55 mg/dL >40 [facility] Comment on above: The drugs N-Acetylcy steine and Metamizole may falsely depress this assay. Reference Range HDL <40 mg/dL Low HDL Cholesterol HDL >or= 60 mg/dL High HDL Cholesterol Serum or plasma cholesterol in VLDL measurement (mass/volume)Ordered By: Juan F Ann on 07-17-2023 Cholesterol in VLDL [Mass/Vol] 36 mg/dL 5-40 [facility] Serum or plasma creatinine m easurement (mass/volume)Ordered By: Juan F Ann on 03-04-2023 Creatinine [Mass/Vol] 0.81 mg/dL 0.55-1.02 [facility] Comment on above: The validity of the calculated GFR & GFRAA in patients over 70 years has not been determined. Clinical correlation is essential. Serum or plasma low density lipoprotein (LDL) cholesterol measurement (mass/volume)Ordered By: Juan F Ann on 03-04-2023 Cholesterol in LDL [Mass/Vol] 114 mg/dL 0-130 [facility] Serum or plasma urea nitroge n measurement (mass/volume)Ordered By: Juan F Ann on 03-04-2023 Urea nitrogen [Mass/Vol] 22 mg/dL 7-18 [facility] Thin prep Papanicolaou smear with manual screeningOrdered By: [facility]23 Thin prep Papanicolaou smear with manual screening 21 U/L 15-37 [facility] Thin prep Papanicolaou smear with manual screening 4 5-15 [facility] Basophil percentageOrdered B y: Dr. Campuzano on 01-04-2023 Basophil percentage < 0.9 mg/dL 0.55-1.02 [facility] No Panel InformationOrdered By: Dr. Campuzano on 01-04-2023 Bedside Estimated GFR (eGFR) > 60.0000 mL/min >60 [facility] Laboratory - Hematology and Cell countson 10-31-2022 HbA1c (Bld) [Mass fraction] 6.2 % 4.2-6.3 [facility] Basophil percentageon 2021 Chloride [Moles/Vol] 109 mmol/L 98-107 [facility] Work Phone: Glucose [Mass/Vol] 108 mg/dL 74-106 [facility] Work Phone: Comment on above: Fasting Glucose resu lt from 100 to 125 mg/dL suggests IMPAIRED HOMEOSTASIS per A.D.A. criteria. Potassium [Moles/Vol] 4.0 mmol/L 3.5-5.1 [facility] Work Phone: Sodium [Moles/Vol] 141 mmol/L 136-145 [facility] Work Phone: Laboratory - Chemistry and C hemistry - challengeon 07-21-2022 CO2 [Moles/Vol] 30.0 mmol/L 21.0-32.0 [facility] Work Phone: Urea nitrogen/Creatinine [Mass ratio] 27.0 mg/mg 10-20 [facility] Work Phone: No Panel Informationon 07-21 Estimated GFR (MDRD) Amer 103 mL/min >60 [facility] Work Phone: Comment on above: GFR Calc Estimated GFR (MDRD) Non-Af Amer 85 mL/min >60 [facility] Work Phone: Comment on above: Non- GFR Calc Serum or plasma calcium kandace urement (mass/volume)on 07-21-2022 Calcium [Mass/Vol] 8.7 mg/dL 8.5-10.1 [facility] Work Phone: Serum or plasma creatinine m easurement (mass/volume)on 07-21-2022 Creatinine [Mass/Vol] 0.70 mg/dL 0.55-1.02 [facility] Work Phone: Comment on above: The validity of the calculated GFR & GFRAA in patients over 70 years has not been determined. Clinical correlation is essential. Serum or plasma urea nitroge n measurement (mass/volume)on 07-21-2022 Urea nitrogen [Mass/Vol] 19 mg/dL 7-18 [facility] Work Phone: Thin prep Papanicolaou smear with manual screeningon 07-21-2022 Thin prep Papanicolaou smear with manual screening 2 5-15 [facility] Work Phone: Laboratory - Hematology and Cell countson 06-22-2022 HbA1c (Bld) [Mass fraction] 6.3 % 4.2-6.3 [facility] Work Phone: Laboratory - Hematology and Cell countson 03-23-2022 HbA1c (Bld) [Mass fraction] 6.5 % 4.2-6.3 [facility] Work Phone: Basophil percentageon 2021 Chloride [Moles/Vol] 108 mmol/L 98-107 [facility] Work Phone: Glucose [Mass/Vol] 120 mg/dL 74-106 [facility] Work Phone: Comment on above: Fasting Glucose resu lt from 100 to 125 mg/dL suggests IMPAIRED HOMEOSTASIS per A.D.A. criteria. Potassium [Moles/Vol] 4.1 mmol/L 3.5-5.1 [facility] Work Phone: Sodium [Moles/Vol] 142 mmol/L 136-145 [facility] Work Phone: Laboratory - Chemistry and C hemistry - challengeon 03-21-2022 CO2 [Moles/Vol] 29.0 mmol/L 21.0-32.0 [facility] Work Phone: Urea nitrogen/Creatinine [Mass ratio] 33.2 mg/mg 10-20 [facility] Work Phone: No Panel Informationon 03-21 Estimated GFR (MDRD) Amer 100 mL/min >60 [facility] Work Phone: Comment on above: GFR Calc Estimated GFR (MDRD) Non-Af Amer 83 mL/min >60 [facility] Work Phone: Comment on above: Non- GFR Calc Serum or plasma calcium kandace urement (mass/volume)on 03-21-2022 Calcium [Mass/Vol] 8.9 mg/dL 8.5-10.1 [facility] Work Phone: Serum or plasma creatinine m easurement (mass/volume)on 03-21-2022 Creatinine [Mass/Vol] 0.72 mg/dL 0.55-1.02 [facility] Work Phone: Comment on above: The validity of the calculated GFR & GFRAA in patients over 70 years has not been determined. Clinical correlation is essential. Serum or plasma urea nitroge n measurement (mass/volume)on 03-21-2022 Urea nitrogen [Mass/Vol] 24 mg/dL 7-18 [facility] Work Phone: Thin prep Papanicolaou smear with manual screeningon 03-21-2022 Thin prep Papanicolaou smear with manual screening 5 5-15 [facility] Work Phone: Laboratory - Hematology and Cell countson 12-20-2021 HbA1c (Bld) [Mass fraction] 6.3 % 4.2-6.3 [facility] Work Phone: Office Visit: 3 month follow upon 06-10-2017 Protein mass conc Done Invalid Interpretation Code [facility] Work Phone: Tobacco smoking status NHIS Never smoker Invalid Interpretation Code [facility] Work Phone: Lab Report: Basic Metabolic Profile (BMP)on 06-04-2017 Anion gap 7 mmol/L Invalid Interpretation Code 5-15 [facility] Work Phone: Anion gap 4 molar conc 7 Invalid Interpretation Code -15 [facility] Work Phone: BUN/Creatinine Ratio 27.2 RATIO High 10-20 [facility] Work Phone: Calcium 8.6 mg/dL Invalid Interpretation Code 8.5-10.1 [facility] Work Phone: Chloride 102 mmol/L Invalid Interpretation Code 98-107 [facility] Work Phone: CO2 30.0 mmol/L Invalid Interpretation Code 21.0-32.0 [facility] Work Phone: CO2 ppres (BldV) 30.0 mmol/L Invalid Interpretation Code 21.0-32.0 [facility] Work Phone: Creatinine 0.66 mg/dL Invalid Interpretation Code 0.55-1.02 [facility] Work Phone: eGFR (non-black) 93 mL/min/{1.73_m2} Invalid Interpretation Code >60 [facility] Work Phone: eGFR (non-black) 113 mL/min/{1.73_m2} Invalid Interpretation Code >60 [facility] Work Phone: EST GFR - AA 113 mL/min Invalid Interpretation Code >60 [facility] Work Phone: Glucose mass conc 117 mg/dL High 70-110 [facility] Work Phone: Potassium molar conc 4.0 mmol/L Invalid Interpretation Code 3.5-5.1 [facility] Work Phone: Sodium 139 mmol/L Invalid Interpretation Code 136-145 [facility] Work Phone: Urea nitrogen 18 mg/dL Invalid Interpretation Code 7-18 [facility] Work Phone: Lab Report: CBC W/Diff, Auto matedon 06-04-2017 Absolute Neut 3.6 X10 3/UL Invalid Interpretation Code 2.0-7.7 [facility] Work Phone: Basophils/100 WBC Auto (Bld) 0.3 % Invalid Interpretation Code 0-1 [facility] Work Phone: Eosinophils/100 leukocytes 4.3 % Invalid Interpretation Code 0-5 [facility] Work Phone: Erythrocyte distribution width Auto Ratio (RBC) 12.9 % Invalid Interpretation Code 11.6-14.6 [facility] Work Phone: Erythrocyte distribution width Auto Ratio (RBC) 42.5 fL Invalid Interpretation Code 35.1-43.9 [facility] Work Phone: Erythrocytes (RBC) 4.81 10*6/uL Invalid Interpretation Code 4.2-5.4 [facility] Work Phone: Hematocrit (HCT) 44.2 % Invalid Interpretation Code 37-47 [facility] Work Phone: Hemoglobin mass conc (Bld) 14.8 g/dL Invalid Interpretation Code 12.0-15.0 [facility] Work Phone: Immature granulocytes #/vol (Bld) 0.300 % Invalid Interpretation Code 0.0-0.9 [facility] Work Phone: Immature granulocytes/100 WBC (Bld) 0.300 % Invalid Interpretation Code 0.0-0.9 [facility] Work Phone: Lymphocytes 1.98 X10 3/UL Invalid Interpretation Code 0.83-4.51 [facility] Work Phone: Lymphocytes/100 leukocytes 29.1 % Invalid Interpretation Code 19-41 [facility] Work Phone: MCH 30.8 pg Invalid Interpretation Code 27.0-32.0 [facility] Work Phone: MCHC mass conc (RBC) 33.5 G/GL Invalid Interpretation Code 32-36 [facility] Work Phone: MCV 91.9 fL Invalid Interpretation Code 81-99 [facility] Work Phone: Monocytes/100 leukocytes 12.6 % High 0-10 [facility] Work Phone: Neutrophils Auto #/vol (Bld) 3.6 X10 3/UL Invalid Interpretation Code 2.0-7.7 [facility] Work Phone: Neutrophils/100 WBC Auto (Bld) 53.4 % Invalid Interpretation Code 47-70 [facility] Work Phone: Platelets 244 10*3/mm3 Invalid Interpretation Code 150-450 [facility] Work Phone: PMV by Graciela 10.7 fL Invalid Interpretation Code 6.2-12.0 [facility] Work Phone: RDW SD 42.5 fL Invalid Interpretation Code 35.1-43.9 [facility] Work Phone: WBC (Leukocytes) 6.8 10*3/uL Invalid Interpretation Code 4.4-11.0 [facility] Work Phone: Lab Report: Hemoglobin A1con 06-04-2017 Hemoglobin A1c/Hemoglobin.total mass fraction (Bld) 6.6 % High 4.2-6.3 [facility] Work Phone: Lab Report: Lipid Profileon 06-04-2017 Cholesterol 203 mg/dL High 200 [facility] Work Phone: HDL Cholesterol 52 mg/dL Invalid Interpretation Code [facility] Work Phone: LDL Cholesterol 117 mg/dL Invalid Interpretation Code 0-130 [facility] Work Phone: Triglyceride 169 mg/dL Invalid Interpretation Code [facility] Work Phone: very low density lipoproteins 34 mg/dL Invalid Interpretation Code 5-40 [facility] Work Phone: Office Visit: New Pt Visit : est. PCPon 03-11-2017 Documentation of current medications (procedure) Done Invalid Interpretation Code [facility] Protein mass conc Done [facility] Tobacco smoking status NHIS Never smoker [facility] Tobacco use CPHS Never smoker Invalid Interpretation Code [facility] Vital Signs Date Time Vital Sign Value Performing Clinician Facility 03-15-2025 10:40-0400 Body height 167.[address] Juan F Ann MD Work Phone: [facility] 03-15-2025 10:40-0400 Body mass index (BMI) [Ratio] 29.7 kg/m2 Dr. Juan F Ann MD Work Phone: [facility] 03-15-2025 10:40-0400 Body temperature 96.2 [degF] Dr. Juan F Ann MD Work Phone: [facility] 03-15-2025 10:40-0400 Body weight 83.[address] Juan F Ann MD Work Phone: [facility] 03-15-2025 10:40-0400 Diastolic blood pressure 64 mm[Hg] Dr. Juan F Ann MD Work Phone: [facility] 03-15-2025 10:40-0400 Heart rate 92 /min Dr. Juan F Ann MD Work Phone: [facility] 03-15-2025 10:40-0400 Respiratory rate 16 /min Dr. Juan F Ann MD Work Phone: [facility] 03-15-2025 10:40-0400 SaO2% (BldA) [Mass fraction] 94 % Dr. Juan F Ann MD Work Phone: [facility] 03-15-2025 10:40-0400 Systolic blood pressure 108 mm[Hg] Dr. Juan F Ann MD Work Phone: [facility] 12-09-2024 13:57-0400 Body height 167.[address] Juan F Ann MD Work Phone: [facility] 12-09-2024 13:57-0400 Body mass index (BMI) [Ratio] 30.3 kg/m2 Dr. Juan F Ann MD Work Phone: [facility] 12-09-2024 13:57-0400 Body temperature 99.2 [degF] Dr. Juan F Ann MD Work Phone: [facility] 12-09-2024 13:57-0400 Body weight 85.[address] Juan F Ann MD Work Phone: [facility] 12-09-2024 13:57-0400 Diastolic blood pressure 83 mm[Hg] Dr. Juan F Ann MD Work Phone: [facility] 12-09-2024 13:57-0400 Heart rate 71 /min Dr. Juan F Ann MD Work Phone: [facility] 12-09-2024 13:57-0400 Respiratory rate 16 /min Dr. Juan F Ann MD Work Phone: [facility] 12-09-2024 13:57-0400 SaO2% (BldA) [Mass fraction] 95 % Dr. Juan F Ann MD Work Phone: [facility] 12-09-2024 13:57-0400 Systolic blood pressure 147 mm[Hg] Dr. Juan F Ann MD Work Phone: [facility] 11-02-2024 11:09-0400 Body height 167.[address] Juan F Ann MD Work Phone: [facility] 11-02-2024 11:09-0400 Body mass index (BMI) [Ratio] 29.8 kg/m2 Dr. Juan F Ann MD Work Phone: [facility] 11-02-2024 11:09-0400 Body temperature 96.9 [degF] Dr. Juan F Ann MD Work Phone: [facility] 11-02-2024 11:09-0400 Body weight 83.[address] Juan F Ann MD Work Phone: [facility] 11-02-2024 11:09-0400 Diastolic blood pressure 82 mm[Hg] Dr. Juan F Ann MD Work Phone: [facility] 11-02-2024 11:09-0400 Heart rate 75 /min Dr. Juan F Ann MD Work Phone: [facility] 11-02-2024 11:09-0400 Respiratory rate 14 /min Dr. Juan F Ann MD Work Phone: [facility] 11-02-2024 11:09-0400 SaO2% (BldA) [Mass fraction] 95 % Dr. Juan F Ann MD Work Phone: [facility] 11-02-2024 11:09-0400 Systolic blood pressure 128 mm[Hg] Dr. Juan F Ann MD Work Phone: [facility] 09-30-2024 14:02-0500 Body mass index (BMI) [Ratio] 29.8 kg/m2 Dr. Juan F Ann MD Work Phone: [facility] 09-30-2024 14:02-0500 Body temperature 96 [degF] Dr. Juan F Ann MD Work Phone: [facility] 09-30-2024 14:02-0500 Body weight 83.[address] Juan F Ann MD Work Phone: [facility] 09-30-2024 14:02-0500 Diastolic blood pressure 78 mm[Hg] Dr. Juan F Ann MD Work Phone: [facility] 09-30-2024 14:02-0500 Heart rate 88 /min Dr. Juan F Ann MD Work Phone: [facility] 09-30-2024 14:02-0500 Respiratory rate 14 /min Dr. Juan F Ann MD Work Phone: [facility] 09-30-2024 14:02-0500 SaO2% (BldA) [Mass fraction] 96 % Dr. Juan F Ann MD Work Phone: [facility] 09-30-2024 14:02-0500 Systolic blood pressure 138 mm[Hg] Dr. Juan F Ann MD Work Phone: [facility] 08-25-2024 14:28-0500 Body mass index (BMI) [Ratio] 30.2 kg/m2 Dr. Juan F Ann MD Work Phone: [facility] 08-25-2024 14:28-0500 Body temperature 98 [degF] Dr. Juan F Ann MD Work Phone: [facility] 08-25-2024 14:28-0500 Body weight 84.[address] Juan F Ann MD Work Phone: [facility] 08-25-2024 14:28-0500 Diastolic blood pressure 84 mm[Hg] Dr. Juan F Ann MD Work Phone: [facility] 08-25-2024 14:28-0500 Heart rate 77 /min Dr. Juan F Ann MD Work Phone: [facility] 08-25-2024 14:28-0500 Respiratory rate 16 /min Dr. Juan F Ann MD Work Phone: [facility] 08-25-2024 14:28-0500 SaO2% (BldA) [Mass fraction] 95 % Dr. Juan F Ann MD Work Phone: [facility] 08-25-2024 14:28-0500 Systolic blood pressure 140 mm[Hg] Dr. Juan F Ann MD Work Phone: [facility] 09-09-2023 15:18-0500 Diastolic blood pressure 80 mm[Hg] Dr. Juan F Ann Work Phone: [facility] 09-09-2023 15:18-0500 Systolic blood pressure 151 mm[Hg] Dr. Juan F Ann Work Phone: [facility] 09-09-2023 14:29-0500 Body height 167.[address] Juan F Ann Work Phone: [facility] 09-09-2023 14:29-0500 Body mass index (BMI) [Ratio] 21.9 kg/m2 Dr. Juan F Ann Work Phone: [facility] 09-09-2023 14:29-0500 Body temperature 98.4 [degF] Dr. Juan F Ann Work Phone: [facility] 09-09-2023 14:29-0500 Body weight 61.[address] Juan F Ann Work Phone: [facility] 09-09-2023 14:29-0500 Heart rate 77 /min Dr. Juan F Ann Work Phone: [facility] 09-09-2023 14:29-0500 Respiratory rate 17 /min Dr. Juan F Ann Work Phone: [facility] 09-09-2023 14:29-0500 SaO2% (BldA) [Mass fraction] 98 % Dr. Juan F Ann Work Phone: [facility] 07-04-2023 15:33-0500 Body mass index (BMI) [Ratio] 29.8 kg/m2 Dr. Juan F Ann Work Phone: [facility] 07-04-2023 15:33-0500 Body temperature 98.6 [degF] Dr. Juan F Ann Work Phone: [facility] 07-04-2023 15:33-0500 Body weight 83.[address] Juan F Ann Work Phone: [facility] 07-04-2023 15:33-0500 Diastolic blood pressure 82 mm[Hg] Dr. Juan F Ann Work Phone: [facility] 07-04-2023 15:33-0500 Heart rate 72 /min Dr. Juan F Ann Work Phone: [facility] 07-04-2023 15:33-0500 Respiratory rate 16 /min Dr. Juan F Ann Work Phone: [facility] 07-04-2023 15:33-0500 SaO2% (BldA) [Mass fraction] 96 % Dr. Juan F Ann Work Phone: [facility] 07-04-2023 15:33-0500 Systolic blood pressure 122 mm[Hg] Dr. Juan F Ann Work Phone: [facility] 05-02-2023 09:10-0400 Body height 167.[address] Juan F Ann Work Phone: [facility] 05-02-2023 09:10-0400 Body mass index (BMI) [Ratio] 30 kg/m2 Dr. Juan F Ann Work Phone: [facility] 05-02-2023 09:10-0400 Body temperature 97.6 [degF] Dr. Juan F Ann Work Phone: [facility] 05-02-2023 09:10-0400 Body weight 84.[address] Juan F Ann Work Phone: [facility] 05-02-2023 09:10-0400 Diastolic blood pressure 72 mm[Hg] Dr. Juan F Ann Work Phone: [facility] 05-02-2023 09:10-0400 Heart rate 70 /min Dr. Juan F Ann Work Phone: [facility] 05-02-2023 09:10-0400 Respiratory rate 18 /min Dr. Juan F Ann Work Phone: [facility] 05-02-2023 09:10-0400 SaO2% (BldA) [Mass fraction] 96 % Dr. Juan F Ann Work Phone: [facility] 05-02-2023 09:10-0400 Systolic blood pressure 126 mm[Hg] Dr. Juan F Ann Work Phone: [facility] 03-04-2023 14:04-0400 Body height 165.[address] Juan F Ann Work Phone: [facility] 03-04-2023 14:04-0400 Body mass index (BMI) [Ratio] 30.7 kg/m2 Dr. Juan F Ann Work Phone: [facility] 03-04-2023 14:04-0400 Body temperature 98.6 [degF] Dr. Juan F Ann Work Phone: [facility] 03-04-2023 14:04-0400 Body weight 83.[address] Juan F Ann Work Phone: [facility] 03-04-2023 14:04-0400 Diastolic blood pressure 82 mm[Hg] Dr. Juan F Ann Work Phone: [facility] 03-04-2023 14:04-0400 Heart rate 86 /min Dr. Juan F Ann Work Phone: [facility] 03-04-2023 14:04-0400 Respiratory rate 18 /min Dr. Juan F Ann Work Phone: [facility] 03-04-2023 14:04-0400 SaO2% (BldA) [Mass fraction] 96 % Dr. Juan F Ann Work Phone: [facility] 03-04-2023 14:04-0400 Systolic blood pressure 124 mm[Hg] Dr. Juan F Ann Work Phone: [facility] 10-31-2022 14:22-0400 Body height 165.[address] Juan F Ann Work Phone: [facility] 10-31-2022 14:22-0400 Body mass index (BMI) [Ratio] 31.4 kg/m2 Dr. Juan F Ann Work Phone: [facility] 10-31-2022 14:22-0400 Body temperature 98 [degF] Dr. Juan F Ann Work Phone: [facility] 10-31-2022 14:22-0400 Body weight 85.[address] Juan F Ann Work Phone: [facility] 10-31-2022 14:22-0400 Diastolic blood pressure 90 mm[Hg] Dr. Juan F Ann Work Phone: [facility] 10-31-2022 14:22-0400 Heart rate 69 /min Dr. Juan F Ann Work Phone: [facility] 10-31-2022 14:22-0400 Respiratory rate 16 /min Dr. Juan F Ann Work Phone: [facility] 10-31-2022 14:22-0400 SaO2% (BldA) [Mass fraction] 99 % Dr. Juan F Ann Work Phone: [facility] 10-31-2022 14:22-0400 Systolic blood pressure 180 mm[Hg] Dr. Juan F Ann Work Phone: [facility] 07-23-2022 10:52-0500 Body height 165.[address] Juan F Ann Work Phone: [facility] Work Phone: 07-23-2022 10:52-0500 Body mass index (BMI) [Ratio] 31.2 kg/m2 Dr. Juan F Ann Work Phone: [facility] Work Phone: 07-23-2022 10:52-0500 Body temperature 97 [degF] Dr. Juan F Ann Work Phone: [facility] Work Phone: 07-23-2022 10:52-0500 Body weight 85.[address] Juan F Ann Work Phone: [facility] Work Phone: 07-23-2022 10:52-0500 Diastolic blood pressure 84 mm[Hg] Dr. Juan F Ann Work Phone: [facility] Work Phone: 07-23-2022 10:52-0500 Heart rate 67 /min Dr. Juan F Ann Work Phone: [facility] Work Phone: 07-23-2022 10:52-0500 Respiratory rate 16 /min Dr. Juan F Ann Work Phone: [facility] Work Phone: 07-23-2022 10:52-0500 SaO2% (BldA) [Mass fraction] 97 % Dr. Juan F Ann Work Phone: [facility] Work Phone: 07-23-2022 10:52-0500 Systolic blood pressure 160 mm[Hg] Dr. Juan F Ann Work Phone: [facility] Work Phone: 06-22-2022 10:15-0400 Diastolic blood pressure 88 mm[Hg] Dr. Juan F Ann Work Phone: [facility] Work Phone: 06-22-2022 10:15-0400 Heart rate 69 /min Dr. Juan F Ann Work Phone: [facility] Work Phone: 06-22-2022 10:15-0400 Systolic blood pressure 166 mm[Hg] Dr. Juan F Ann Work Phone: [facility] Work Phone: 06-22-2022 10:10-0400 Body mass index (BMI) [Ratio] 30.4 kg/m2 Dr. Juan F Ann Work Phone: [facility] Work Phone: 06-22-2022 10:10-0400 Body temperature 97.2 [degF] Dr. JuanF Ann Work Phone: [facility] Work Phone: 06-22-2022 10:10-0400 Body weight [address] Juan F Ann Work Phone: [facility] Work Phone: 06-22-2022 10:10-0400 Respiratory rate 16 /min Dr. Juan F Ann Work Phone: [facility] Work Phone: 06-22-2022 10:10-0400 SaO2% (BldA) [Mass fraction] 95 % Dr. Juan F Ann Work Phone: [facility] Work Phone: 03-23-2022 10:16-0400 Body height 165.[address] Juan F Ann Work Phone: [facility] Work Phone: 03-23-2022 10:16-0400 Body mass index (BMI) [Ratio] 30.7 kg/m2 Dr. Juan F Ann Work Phone: [facility] Work Phone: 03-23-2022 10:16-0400 Body temperature 97 [degF] Dr. Juan F Ann Work Phone: [facility] Work Phone: 03-23-2022 10:16-0400 Body weight 83.[address] Juan F Ann Work Phone: [facility] Work Phone: 03-23-2022 10:16-0400 Diastolic blood pressure 90 mm[Hg] Dr. Juan F Ann Work Phone: [facility] Work Phone: 03-23-2022 10:16-0400 Heart rate 68 /min Dr. Juan F Ann Work Phone: [facility] Work Phone: 03-23-2022 10:16-0400 Respiratory rate 18 /min Dr. Juan F Ann Work Phone: [facility] Work Phone: 03-23-2022 10:16-0400 SaO2% (BldA) [Mass fraction] 98 % Dr. Juan F Ann Work Phone: [facility] Work Phone: 03-23-2022 10:16-0400 Systolic blood pressure 164 mm[Hg] Dr. Juan F Ann Work Phone: [facility] Work Phone: 12-20-2021 13:49-0400 Body mass index (BMI) [Ratio] 30.9 kg/m2 Dr. Juan F Ann Work Phone: [facility] Work Phone: 12-20-2021 13:49-0400 Body temperature 98.1 [degF] Dr. Juan F Ann Work Phone: [facility] Work Phone: 12-20-2021 13:49-0400 Body weight 84.[address] Juan F Ann Work Phone: [facility] Work Phone: 12-20-2021 13:49-0400 Diastolic blood pressure 92 mm[Hg] Dr. Juan F Ann Work Phone: [facility] Work Phone: 12-20-2021 13:49-0400 Heart rate 72 /min Dr. Juan F Ann Work Phone: [facility] Work Phone: 12-20-2021 13:49-0400 Respiratory rate 14 /min Dr. Juan F Ann Work Phone: [facility] Work Phone: 12-20-2021 13:49-0400 SaO2% (BldA) [Mass fraction] 99 % Dr. Juan F Ann Work Phone: [facility] Work Phone: 12-20-2021 13:49-0400 Systolic blood pressure 174 mm[Hg] Dr. Juan F Ann Work Phone: [facility] Work Phone: 06-10-2017 10:01-0400 BMI (Body Mass Index) 31.12 kg/m2 Juan F Ann MD [facility] Work Phone: 06-10-2017 10:01-0400 Body Temperature 97.7 [degF] Juan F Ann MD [facility] Work Phone: 06-10-2017 10:01-0400 BP Diastolic 81 mm[Hg] Juan F Ann MD [facility] Work Phone: 06-10-2017 10:01-0400 BP Systolic 135 mm[Hg] Juan F Ann MD [facility] Work Phone: 06-10-2017 10:010400 Height 165.1 cm Juan F Ann MD [facility] Work Phone: 06-10-2017 10:01-0400 Pulse (Heart Rate) 66 /min [facility] Work Phone: 06-10-2017 10:01-0400 Respiratory Rate 12 /min Juan F Ann MD [facility] Work Phone: 06-10-2017 10:01-0400 Weight 84.82 kg Juan F Ann MD [facility] Work Phone: 03-11-2017 09:02-0400 BMI (Body Mass Index) 30.98 kg/m2 Juan F Ann MD [facility] 03-11-2017 09:02-0400 Body Temperature 96.8 [degF] Juan F Ann MD [facility] 03-11-2017 09:02-0400 BP Diastolic 84 mm[Hg] Juan F Ann MD [facility] 03-11-2017 09:02-0400 BP Systolic 132 mm[Hg] Juan F Ann MD [facility] 03-11-2017 09:02-0400 Height 165.1 cm Juan F Ann MD [facility] 03-11-2017 09:02-0400 Pulse (Heart Rate) 68 /min Juan F Caicedo [facility] 03-11-2017 09:02-0400 Weight 84.46 kg Juan F Ann MD [facility] Encounters Encounter Date Encounter Type Care Provider Facility Start: 04-01-2025 [facility] Start: 03-15-2025 End: 03-15-[address] Juan F Ann MD -[facility] Work Phone: Start: 03-15-2025 End: 03-15-[address] Juan F Ann MD [facility] Start: 03-15-2025 End: 03-15-[address] Juan F Ann MD Work Phone: -[facility] Start: 03-15-2025 End: 03-15-2025 ambulatory Juan F Ann Facility:[facility] Start: 02-11-2025 End: 02-11-[address] Juan F Ann MD Work Phone: -Radiology [facility] Start: 02-11-2025 End: 02-11-[address] Maurilio Sousa [facility] -Radiology [facility] Work Phone: Start: 02-11-2025 End: 02-11-2025 ambulatory Maurilio Sousa Facility:[facility] Start: 12-09-2024 End: 12-09-[address] Efrain Castano MD -[facility] Work Phone: Start: 12-09-2024 End: 12-09-2024 ambulatory Juan F Ann Facility:[facility] Start: 11-02-2024 End: 11-02-[address] Juan F Ann MD -[facility] Work Phone: Start: 11-02-2024 End: 11-02-[address] Juan F Ann MD Work Phone: [facility] Work Phone: Start: 11-02-2024 End: 11-02-20[facility] Start: 09-30-2024 End: 09-30-2024 Patient encounter procedure Rick AGUILAR -[facility] Work Phone: Start: 09-30-2024 End: 09-30-2024 [facility] Start: 09-28-2024 End: 09-28-[address] Cooper Echeverria MD -Laboratory Work Phone: Start: 09-28-2024 End: 09-28-2024 [facility] Start: 09-17-2024 [facility] Start: 09-17-2024 Non-patient / Non-visit Dr. Sanket Scherer MD -[facility] Start: 09-17-2024 End: 09-17-[address] Cooper Echeverria MD -Cardiovascular Services Work Phone: Start: 09-17-2024 End: 09-17-2024 ambulatory Cooper Rogerselsie Facility:[facility] Start: 08-25-2024 End: 08-25-[address] Cooper Echeverria MD -[facility] Work Phone: Start: 08-25-2024 End: 08-25-2024 ambulatory E[facility] Facility:[facility] Start: 07-06-2024 End: 07-06-2024 [facility] Start: 04-13-2024 End: 04-13[facility] Start: 04-09-2024 End: 04-09-2024 ambulatory Efewongbe Oleghe Facility:[facility] Start: 04-09-2024 End: 04-09-2024 [facility] Start: 01-06-[address] Juan F Ann MD Work Phone: [facility] Start: 09-23-2023 End: 09-23-[address] Juan F Ann Work Phone: [facility] Work Phone: Start: 09-23-2023 End: 09-23-[address] Juan F Ann Work Phone: [facility]-Laboratory Work Phone: Start: 09-09-2023 End: 09-09-[address] Juan F Ann Work Phone: [facility] Neurology Work Phone: Start: 07-04-2023 End: 07-04-[address] Juan F Ann Work Phone: [facility] Internal Medicine Work Phone: Start: 06-19-2023 End: 06-19-[address] Juan F Ann Work Phone: [facility] Work Phone: Start: 06-17-2023 Non-patient / Non-visit Dr. Juan F Ann Work Phone: [facility] Start: 06-17-2023 End: 06-17-[address] Juan F Ann Work Phone: [facility] Work Phone: Start: 06-17-2023 End: 06-17-[address] [facility] Start: 05-17-[address] Toni Ann [facility] Work [facility] Start: 05-17-2023 Non-patient / Non-visit Dr. Juan F Ann Work Phone: [facility] Work Phone: Start: 05-08-2023 End: 05-08-2023 Non-patient / Non-visit Dr. Juan F Ann Work Phone: [facility] Work Phone: Start: 05-08-2023 End: 05-08-[address] Juan F Ann Work Phone: [facility] Work Phone: Start: 05-08-2023 End: 05-08-[address] Juan F Ann Work Phone: [facility]-Pulmonary Services/Neurology Work Phone: Start: 05-07-2023 End: 05-07-[address] Juan F Ann Work Phone: [facility] Work Phone: Start: 05-07-2023 End: 05-07-[address] Juan F Ann Work Phone: [facility]-Laboratory Work Phone: Start: 05-02-2023 End: 05-02-[address] Juan F Ann Work Phone: [facility] Neurology Work Phone: Start: 04-16-2023 End: 04-16-[address] Juan F Ann Work Phone: [facility] Work Phone: Start: 04-16-2023 End: 04-16-[address] Juan F Ann Work Phone: [facility] Work Phone: Start: 03-04-2023 End: 03-04-[address] Juan F Ann Work Phone: [facility] Work Phone: Start: 03-04-2023 End: 03-04-[address] Juan F Ann Work Phone: [facility] Internal Medicine Work Phone: Start: 01-04-2023 End: 01-04-[address] Juan F Ann Work Phone: [facility] Work Phone: Start: 01-04-2023 End: 01-04-[address] Juan F Ann Work Phone: [facility] Start: 11-29-2022 End: 11-29-[address] Juan F Ann Work Phone: [facility] Work Phone: Start: 11-29-2022 End: 11-29-[address] Juan F Ann Work Phone: [facility]-Outpatient Bone Densitometry Start: 10-31-2022 End: 10-31-[address] Juan F Ann Work Phone: [facility] Internal [facility] Start: 07-23-2022 End: 07-23-[address] Juan F Ann Work Phone: [facility] Internal Medicine Start: 07-21-2022 End: 07-21-[address] Juan F Ann Work Phone: [facility] Work Phone: Start: 07-21-2022 End: 07-21-[address] Juan F Ann Work Phone: [facility]-Laboratory Start: 06-22-2022 End: 06-22-[address] Juan F Ann Work Phone: [facility] Internal [facility] Start: 03-23-2022 End: 03-23-[address] Juan F Ann Work Phone: [facility] Internal Medicine Start: 03-21-2022 End: 03-21-[address] Juan F Ann Work Phone: [facility]-Laboratory, [facility] Start: 12-20-2021 End: 12-20-[address] Juan F Ann Work Phone: [facility] Internal Medicine Procedures Date Procedure Procedure Detail Performing Clinician Start: 02-11-2025 Plain x-ray for bone length measurement Dr. Juan F Ann MD Work Phone: Start: 02-11-2025 Plain x-ray of pelvi s and lower extremity Dr. Juan F Ann MD Work Phone: Start: 06-19-2023 CT angiography of head Dr. Juan F Ann Work Phone: Start: 04-16-2023 MRI of brain with contrast Dr. Juan F Ann Work Phone: Start: 01-04-2023 MRI of brain with contrast Dr. Juan F Ann Work Phone: Start: 11-29-2022 Dual energy X-ray absorptiometry Dr. Juan F Ann Work Phone: Start: 03-11-2017 End: 06-04-2017 *BMP Juan F [...] Treatment Date Care Activity Detail Author Start: 03-15-2025 Basic metabolic 2008 panel with ionized calcium - Serum or Plasma [facility] Start: 02-11-2025 Plain x-ray for bone length measurement Bone Length [facility] Start: 02-11-2025 XR Unspecified body region Views [facility] Start: 11-02-2024 Patient referral [facility] Work Phone: Start: 09-11-2017 End: 09-11-2017 Appointment Appointment [facility] Work Phone: Start: 09-04-2017 End: 06-04-2017 Hemoglobin A1c/Hemoglobin.total mass fraction (Bld) *HgA1C [facility] Work Phone: Start: 06-10-2017 End: 06-10-2017 Follow Up Appt 3 months Follow Up Appt 3 months [facility] Work Phone: Start: 06-10-2017 End: 06-10-2017 Appointment Appointment [facility] Start: 03-11-2017 End: 03-20-2017 *BMP *BMP [facility] Work Phone: Start: 03-11-2017 End: 03-20-2017 *CBC with Differential *CBC with Differential [facility] Work Phone: Start: 03-11-2017 End: 03-11-2017 DEXA scan DEXA scan [facility] Work Phone: Start: 03-11-2017 End: 03-11-2017 Follow Up Appt 3 months Follow Up Appt 3 months [facility] Work Phone: Start: 03-11-2017 End: 03-20-2017 Hemoglobin A1c/Hemoglobin.total mass fraction (Bld) *HgA1C [facility] Work Phone: Start: 03-11-2017 End: 03-20-2017 Lipid panel [AGGREGATE] *Lipid Profile [facility] Work Phone: Start: 03-11-2017 End: 03-11-2017 Appointment Appointment [facility] Start: 03-11-2017 End: 03-11-2017 *BMP *BMP [facility] Start: 03-11-2017 End: 03-11-2017 *CBC with Differential *CBC with Differential [facility] Start: 03-11-2017 End: 03-11-2017 DEXA scan DEXA scan [facility] Start: 03-11-2017 End: 03-11-2017 Follow Up Appt 3 months Follow Up Appt 3 months [facility] Start: 03-11-2017 End: 03-11-2017 HbA1c *HgA1C [facility] Start: 03-11-2017 End: 03-11-2017 Lipid panel [AGGREGATE] *Lipid Profile [facility] Anion gap in Serum o r Plasma [facility] BUN/Creatinine ratio [facility] Calcium [Mass/volume ] in Serum or Plasma [facility] Carbon dioxide, tota l [Moles/volume] in Central venous blood [facility] Cardiac event recording [facility] CBC W Auto Different ial panel - Blood [facility] Creatinine [Mass/vol ume] in Serum or Plasma [facility] CTA Head vessels WO and W contrast IV [facility] DXA Bone [Mass/Area] Bone density [facility] Glucose [Mass/volume ] in Serum or Plasma [facility] Lipid 1996 panel - S patricia or Plasma [facility] Measurement of renal function [facility] MG Breast - bilatera l Screening [facility] MR Brain WO and W contrast IV [facility] Patient referral [facility] Work Phone: Potassium measurement [facility] Serum chloride measurement [facility] Sodium measurement [facility] Urea nitrogen [Mass/volume] in Serum or Plasma [facility] Carotid arteries [facility] Carotid arteries [facility] Heart [facility] Immunizations Immunization Date Immunization Notes Care Provider Rajeev keagan 06-27-2023 Covid (Spikevax) Dr. Raymundo Ann Work Phone: [facility] 06-13-2023 RSV Adult Recombinan t (Arexvy) Dr. Juan F Ann Work Phone: [facility] 06-07-2023 Influenza High-Dose Quadrivalent Dr. Juan F Ann Work Phone: [facility] 05-10-2020 influenza, injectabl e, quadrivalent, preservative free Dr. Juan F Ann Work Phone: [facility] 05-10-2020 influenza, seasonal, injectable Dr. Juan F Ann Work Phone: [facility] 06-09-[address] Juan F Ann Work Phone: [facility] Payers Date Payer Category Payer Self-pay [id number] 2015 Private Health Insurance [id number] Medicare [id number] Unknown [id number] Unknown [id number] 2.16.8 [id number] Unknown [id number] 2.16.8 [id number] Unknown [id number] 2.16.8 [id number] Unknown [id number] 2.16.8 [id number] Unknown [id number] 2.16.8 [id number] Unknown [id number] 2.16.8 [id number] Unknown [id number] 2.16.8 [id number] Unknown [id number] 2.16.8 [id number] Unknown [id number] 2.16.8 [id number] Unknown [id number] 2.16.8 [id number] Unknown [id number] 2.16.8 [id number] Unknown [id number] 2.16.8 [id number] Unknown [id number] 2.16.8 [id number] Unknown [id number] 2.16.8 [id number] Unknown [id number] 2.16.8 [id number] Unknown [id number] 2.16.8 [id number] Social History Date Type Detail Facility Start: 03-23-2022 End: 09-09-2023 Tobacco smoking status NHIS Unknown if ever smoked [facility] Start: 12-14-2020 None [facility] Start: 12-14-2020 Homeless [facility] Start: 12-14-2020 Non-smoker [facility] Start: 1945 Sex Assigned At Female W [facility] Start: 10-09-2023 Tobacco smoking stat us [facility] Never smoked tobacco (finding) [facility] Start: 11-11-2024 Sex Female (finding) [facility] Clinical Notes 08-25-2024 to 02-11-2025 Note Date & Type Note Facility 02-11-2025 Radiology Diagnostic study note [facility] Imaging Services [address] [place], [place] [address] HIP, UNI W/ Pelvis 2-3 Views MR#: [id number] Acct: [id number] Name: KHUSHBOO PORTILLO Rep #: [id number] : 1945 F 79 From: Mone Pena MD PCP: Dr. Juan F Ann MD Status: R EG CLI Study:HIP, UNI W/ Pelvis 2-3 Views Date of Ex am: 02/11/25 Exam# [id number] Ordering Dr: Maurilio Sousa DPMyra EXAM: XR Right Hip With Pelvis When Performed, 2 or 3 Views CLINICAL INDICATION: LOWER EXTREMITY ARTHRITIS TECHNIQUE: Two or three views of the right hip with pelvis when performed. COMPARISON: No relevant prior studies available. FINDINGS: BONES/JOINTS: [id number] degenerative changes of the hip joint. No acutefracture. No dislocation. SOFT TISSUES: Unremarkable. RAD/HIP, UNI W/ Pelvis 2-3 Views IMPRESSION: Degenerative changes as above. Reading Location: [facility] CC: DPMyra Sousa; Dr. 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 December 09 1:52pm [facility] Work Phone: 1(779) 360-960504-23-2025 Evaluation note* Diagnosis Onset Date Resolution Status Admit Date DVT, lower extremity, distal acute December 09, 2024 1:52pm History of deep venous thrombosis (DVT) of distal vein of right lower extremity chronic November 182024 1:52pm 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 December 09, 2024 1:52pm Health care maintenance acute J ricardo 2024 10:29am Localized skin mass, lump, o r swelling acute March 15, 2025 10:29am Bilateral primary osteoarthr itis of hip chronic March 15, 2025 10:29am History of deep venous thrombosis (DVT) of distal vein of right lower extremity chronic March 152024 10:29am Hypertension chronic March 15, 2 025 10:29am Type 2 diabetes mellitus chronic March 15, 2025 10:29am Venous insufficiency of both lower extremities chronic March 15 10:29am [facility] Work Phone: 1(790) 735-945303-17-2025 Evaluation note* Diagnosis Onset Date Resolution Status Admit Date Hyperlipidemia chronic October 10:59am Hypertension chronic November 02, 2024 10:59am Right leg DVT chronic November 02, 2024 10:59am Type 2 diabetes mellitus chronic November 02, 2024 10:59am DVT, lower extremity, distal acute December 09, 2024 1:52pm History of deep venous thrombosis (DVT) of distal vein of right lower extremity chronic November 182024 1:52pm 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 December 09, 2024 1:52pm [facility] Work Phone: 1(238) 438-125101-07-2025 Evaluation note* Diagnosis Onset Date Resolution Status Admit Date History of deep venous thrombosis (DVT) of distal vein of right lower extremity acute August 25, 2024 2:25pm History of ischemic stroke acute August 25, 2024 2:25pm Right calf pain acute August 252024 2:25pm Scintillating scotoma of bot h eyes acute August 25 2:25pm Hyperlipidemia chronic August 2:25pm Right leg DVT chronic September 302024 1:54pm Hyperlipidemia chronic October 10:59am Hypertension chronic November 02, 2024 10:59am Right leg DVT chronic November 02, 2024 10:59am Type 2 diabetes mellitus chronic November 02, 2024 10:59am [facility] Work Phone: chief complaint+Reason for visit Narrative* Chief Complaint POST MENOPAUSAL HYPERTENSION 4 m fu Reason for Visit Counseling about tra staci 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 Hypertension Type 2 diabetes mellitus [facility] Work Phone: Chief complaint+Reason for visit Narrative* Chief Complaint HYPERTENSION 4 m fu F/U ABNORMAL MRI BRAIN Reason for Visit Counseling about tra staci 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 Hypertension Type 2 diabetes mellitus [facility] Work Phone: Evaluation note* Diagnosis Onset Date Resolution Status Hyperlipidemia chronic Hypertension chronic Type 2 diabetes mellitus chr onic HTN (hypertension) chronic Hyperlipidemia chronic Type 2 diabetes mellitus chr [facility] Work Phone: Evaluation note* Diagnosis Onset Date Resolution Status HTN (hypertension) chronic Type 2 diabetes mellitus chr onic HTN (hypertension) [facility] Work Phone: Evaluation note* Diagnosis Onset Date Resolution Status Post-menopausal acute HTN (hypertension) chronic Hyperlipidemia chronic Type 2 diabetes mellitus chr [facility] Work Phone: evaluation note* Diagnosis Onset Date Resolution Status Counseling about travel acut e 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 acute Hypertension chronic Type 2 diabetes mellitus chr [facility] Work Phone: Evaluation note* Diagnosis Onset Date Resolution Status Counseling about travel acut e 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 acute Hypertension chronic Type 2 diabetes mellitus chr onic 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 [facility] Work Phone: evaluation note* Diagnosis Onset Date Resolution Status 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 HTN (hypertension) chronic Type 2 diabetes mellitus chr onic Hyperlipidemia [facility] Work Phone: Reason for referral (narrative)No reason for [facility] Work Phone: Chief Complaint and Reason for Visit Chief Complaint 3 M FU LABWORK 3 M FU Reason for Visit Hyperlipidemia Hypertension Type 2 diabetes mellitus HTN (hypertension) Hyperlipidemia Type 2 diabetes mellitus Chief Complaint 3 M FU E ORDER 1 M FU Reason for Visit HTN (hypertension) Type 2 diabetes mellitus HTN (hypertension) Chief Complaint 3 M FU POST MENOPAUSAL Reason for Visit Post-menopausal HTN (hypertension) Hyperlipidemia Type 2 diabetes mellitus Chief Complaint 3 M FU POST MENOPAUSAL HYPERTENSION Reason for Visit Post-menopausal HTN (hypertension) Hyperlipidemia Type 2 diabetes mellitus Chief Complaint 4 m fu F/U ABNORMAL MRI BRAIN Inflammation of brain shown on MRI INT LABS ABN EKG, CVA IN 12/2022 Reason for Visit Counseling about tra staci 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 Hypertension Type 2 diabetes mellitus Cerebrovascular disease Chief Complaint 4 m fu F/U ABNORMAL MRI BRAIN Inflammation of brain shown on MRI INT LABS ABN EKG, CVA IN 12/2022 Cerebrovascular accident 30 DAY 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 STROKE Hyperlipidemia, unspecified, abnl ekg,cva Cerebrovascular disease, unspecified Reason for Visit Counseling about tra staci 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 Hypertension Type 2 diabetes mellitus Cerebrovascular disease Chief Complaint Hyperlipidemia, unsp ecified, abnl ekg,cva Cerebrovascular disease, unspecified 4 m fu 4 M FU E ORDER Reason for Visit Cerebrovascular dise ase HTN (hypertension) Type 2 diabetes mellitus Hyperlipidemia Chief Complaint Admit Date 1 Y FU August 25, 2024 2: 25pm HX OF DVT, THALAMIC STROKE September 17, 2024 1:53pm INT LABS September 28, 2024 9:52am ACUTE FU FROM TESTING PER DR SETH Hilar[place] 2024 1:54pm 4 M FU November 02, 2024 10: 59am Reason for Visit Admit Date History of deep venous throm bosis (DVT) of distal vein of right lower extremity August 25, 2024 2:25pm History of ischemic stroke August 25, 2024 2:25pm Right calf pain August 25, 2024 2: 25pm Scintillating scotoma of both eyes Janua 2024 2:25pm Hyperlipidemia August 25, 2024 2: 25pm Right leg DVT September 30, 2024 1:54pm Hyperlipidemia November 02, 2024 10: 59am Hypertension November 02, 2024 10: 59am Right leg DVT November 02, 2024 10: 59am Type 2 diabetes mellitus November 02 10:59am Chief Complaint Admit Date 4 M FU November 02, 2024 10: 59am ACUTE EMBOLISM AND THROMBOSIS November 1:52pm Reason for Visit Admit Date Hyperlipidemia November 02, 2024 10: 59am Hypertension November 02, 2024 10: 59am Right leg DVT November 02, 2024 10: 59am Type 2 diabetes mellitus November 02 10:59am DVT, lower extremity, distal December 09, 2024 1:52pm History of deep venous throm bosis (DVT) of distal vein of right lower extremity December 09, 2024 1:52pm Spider veins of both lower extremities A pril 2024 1:52pm Chief Complaint Admit Date ACUTE EMBOLISM AND THROMBOSIS November 1:52pm 4 M FU March 15, 2025 10:2 9am Reason for Visit Admit Date DVT, lower extremity, distal December 09, 2024 1:52pm History of deep venous throm bosis (DVT) of distal vein of right lower extremity December 09, 2024 1:52pm Spider veins of both lower extremities A pril 2024 1:52pm Reason for Visit Admit Date DVT, lower extremity, distal December 09, 2024 1:52pm History of deep venous throm bosis (DVT) of distal vein of right lower extremity December 09, 2024 1:52pm Spider veins of both lower extremities A pril 2024 1:52pm Health care maintenance March 15, 2025 10:29am Localized skin mass, lump, or swelling J ricardo 2024 10:29am Bilateral primary osteoarthritis of hip March 15, 2025 10:29am History of deep venous throm bosis (DVT) of distal vein of right lower extremity March 15, 2025 10:29am Hypertension March 15, 2025 10:2 9am Type 2 diabetes mellitus March 15, 2025 10:29am Venous insufficiency of both lower extre mities March 15, 2025 10:29am Family History No Family History Records Found Relationship Condition Age at Onset Recorded Date/T ileana father Alcoholism Unknown sister Asthma Unknown Malignant neoplasm Unknown mother Cardiac disease Unknown Hypertension Unknown brother Blood disorder Unknown Summary Purpose Advance Directives No Advanced Directives Records Found Additional Source Comments Goals (unrecognized section and content) Goals may be documented in a n alternate sectionGoals may be documented in an alternate sectionGoals may be documented in an alternate sectionGoals may be documented in an alternate sectionGoals may be documented in an alternate sectionGoals may be documented in an alternate sectionGoals may be documented in an alternate sectionGoals may be documented in an alternate sectionGoals may be documented in an alternate sectionGoals may be documented in an alternate sectionGoals may be documented in an alternate sectionGoals may be documented in an alternate sectionGoals may be documented in an alternate sectionGoals may be documented in an alternate section Care Teams (unrecognized sec tion and content) Team Status: Active Member Role Status Dates Dr. Juan F Ann MD Family Provider Active Dr. Juan F Ann MD Primary Care Provider Active Team Status: Inactive Member Role Status Dates Dr. Juan F Ann MD Primary Care P rovider, Attending Provider, Referring Provider Active Team Status: Inactive Member Role Status Dates Dr. Juan F Ann MD Primary Care Provider Active Dr. Edel Campuzano MD Attending Provider, Referring Provider Active Team Status: Inactive Member Role Status Dates Dr. Juan F Ann MD Primary Care Provider Active Dr. Cooper Echeverria MD Attending Provider Active Team Status: Inactive Member Role Status Dates Dr. Juan F Ann MD Primary Care Provider Active Dr. Cooper Echeverria MD Attending Provider, Referring Provider Active Team Status: Active Member Role Status Dates Dr. Juan F Ann MD Primary Care Provider Active Dr. Cooper Echeverria MD Attending Provider, Referring Provider Active Team Status: Active Member Role Status Dates Dr. Juan F Ann MD Primary Care Provider Active Dr. Pablo Reeves MD Attending Provider Activ e Dr. Cooper Echeverria MD Referring Provider Active Team Status: Active Member Role Status Dates Dr. Juan F Ann MD Primary Care Provider Active Dr. Jaz Gupta MD Attending Provider Active Dr. Cooper Echeverria MD Referring Provider Active Team Status: Active Member Role Status Dates Dr. Juan F Ann MD Primary Care Provider Active Dr. Jay Arellano MD Attending Provider Active Team Status: Inactive Member Role Status Dates Dr. Juan F Ann MD Primary Care Provider, Refer ring Provider Active Dr. Cooper Echeverria MD Attending Provider Active Team Status: Active Member Role Status Dates Dr. Juan F Ann MD Primary Care Provider Active Dr. Jay Arellano MD Attending Provider Active Dr. Cooper Echeverria MD Referring Provider Active Team Status: Active Member Role Status Dates Dr. Juan F Ann MD Primary Care Provider Active Team Status: Inactive Member Role Status Dates Dr. Juan F Ann MD Primary Care Provider Active Start: August 25, 2024 End: August 25, 2024 Dr. Juan F Ann MD Referring Provider Active Start: August 25, 2024 End: August 25, 2024 Dr. Cooper Echeverria MD Attending Provider Active Start: August 25, 2024 End: August 25, 2024 Team Status: Inactive Member Role Status Dates Dr. Juan F Ann MD Primary Care Provider Active Start: September 17, 2024 End: September 17, 2024 Dr. Cooper Echeverria MD Attending Provider Active Start: September 17, 2024 End: September 17, 2024 Dr. Cooper Echeverria MD Referring Provider Active Start: September 17, 2024 End: September 17, 2024 Team Status: Active Member Role Status Dates Dr. Juan F Ann MD Primary Care Provider Active Start: September 17, 2024 Dr. Sanket Scherer MD Attending Provider Active S tart: September 17, 2024 Dr. Cooper Echeverria MD Referring Provider Active Start: September 17, 2024 Team Status: Inactive Member Role Status Dates Dr. Juan F Ann MD Primary Care Provider Active Start: September 28, 2024 End: September 28, 2024 Dr. Cooper Echeverria MD Attending Provider Active Start: September 28, 2024 End: September 28, 2024 Dr. Cooper Echeverria MD Referring Provider Active Start: September 28, 2024 End: September 28, 2024 Team Status: Inactive Member Role Status Dates Dr. Juan F Ann MD Primary Care Provider Active Start: September 30, 2024 End: September 30, 2024 Dr. Juan F Ann MD Referring Provider Active Start: September 30, 2024 End: September 30, 2024 LAUREN Wiseman Attending Provider Active St art: September 30, 2024 End: September 30, 2024 Team Status: Inactive Member Role Status Dates Dr. Juan F Ann MD Primary Care Provider Active Start: November 02, 2024 End: November 02, 2024 Dr. Juan F Ann MD Attending Provider Active Start: November 02, 2024 End: November 02, 2024 Dr. Juan F Ann MD Referring Provider Active Start: November 02, 2024 End: November 02, 2024 Team Status: Active Member Role/Relationship Status Dates Dr. Juan F Ann MD Primary Care Provider Active Team Status: Inactive Member Role/Relationship Status Dates Dr. Juan F Ann MD Primary Care Provider Active Start: November 02, 2024 End: November 02, 2024 Dr. Juan F Ann MD Attending Provider Active Start: November 02, 2024 End: November 02, 2024 Dr. Juan F Ann MD Referring Provider Active Start: November 02, 2024 End: November 02, 2024 Team Status: Inactive Member Role/Relationship Status Dates Dr. Juan F Ann MD Primary Care Provider Active Start: November 02, 2024 End: November 02, 2024 Dr. Juan F Ann MD Attending Provider Active Start: November 02, 2024 End: November 02, 2024 Dr. Juan F Ann MD Referring Provider Active Start: November 02, 2024 End: November 02, 2024 Team Status: Inactive Member Role/Relationship Status Dates Dr. Juan F Ann MD Primary Care Provider Active Start: December 09, 2024 End: December 09, 2024 Dr. Juan F Ann MD Referring Provider Active Start: December 09, 2024 End: December 09, 2024 Dr. Efrain Castano MD Attending Provider Active S tart: December 09, 2024 End: December 09, 2024 Team Status: Inactive Member Role/Relationship Status Dates Dr. Juan F Ann MD Primary Care Provider Active Start: February 11, 2025 End: February 11, 2025 Dr. Maurilio Sousa DPM Attending Provider Active Start: February 11, 2025 End: February 11, 2025 Dr. Maurilio Sousa DPM Referring Provider Active Start: February 11, 2025 End: February 11, 2025 Team Status: Inactive Member Role/Relationship Status Dates Dr. Juan F Ann MD Primary Care Provider Active Start: December 09, 2024 End: December 09, 2024 Dr. Juan F Ann MD Referring Provider Active Start: December 09, 2024 End: December 09, 2024 Dr. Efrain Castano MD Attending Provider Active S tart: December 09, 2024 End: December 09, 2024 Team Status: Inactive Member Role/Relationship Status Dates Dr. Juan F Ann MD Primary Care Provider Active Start: February 11, 2025 End: February 11, 2025 Dr. Maurilio Sousa DPM Attending Provider Active Start: February 11, 2025 End: February 11, 2025 Dr. Maurilio Sousa DPM Referring Provider Active Start: February 11, 2025 End: February 11, 2025 Team Status: Inactive Member Role/Relationship Status Dates Dr. Juan F Ann MD Primary Care Provider Active Start: March 15, 2025 End: March 15, 2025 Dr. Juan F Ann MD Attending Provider Active Start: March 15, 2025 End: March 15, 2025 Dr. Juan F Ann MD Referring Provider Active Start: March 15, 2025 End: March 15, 2025 Team Status: Active Member Role/Relationship Status Dates Dr. Juan F Ann MD Primary Care Provider Active Start: March 15, 2025 Dr. Juan F Ann MD Attending Provider Active Start: March 15, 2025 Dr. Juan F Ann MD Referring Provider Active Start: March 15, 2025 Team Status: Inactive Member Role/Relationship Status Dates Dr. Juan F Ann MD Primary Care Provider Active Start: March 15, 2025 End: March 15, 2025 Dr. Juan F Ann MD Attending Provider Active Start: March 15, 2025 End: March 15, 2025 Dr. Juan F Ann MD Referring Provider Active Start: March 15, 2025 End: March 15, 2025 INFORMATION SOURCE (unrecogn ized section and content) DATE CREATED AUTHOR 03/26/2025 [facility] FOR RECORDS PERTAINING TO PATIENTS WHO ARE [...] BE BASED ON THE PRIMARY CLINICAL RECORDS. [facility] [facility]. provides no warranty or guarantee of the accuracy or completeness of information in this document.
== END | disposition home or self-care (01) ==
LOC: OPBD 07:50
PROVIDERS: PCP Internal Medicine; Referring Provider Internal Medicine; Visit Provider Internal Medicine
DX: Z12.31 Encounter for screening mammogram for malignant neoplasm of breast (principal); Z78.0 Asymptomatic menopausal state
CPT/HCPCS: 77063; 77067; 77080